=== PATIENT | male | born 1970 | race Caucasian/White ===

== ENCOUNTER 2017-03-03 01:15 | Inpatient (IN) | payer OTHER ==
[~2017-03-03] VITALS: Ht 182.9 cm; Wt 81.0 kg
[2017-03-03] VITALS (12 sets, daily range): BP systolic 106–125; BP diastolic 58–72; PULSE 72–83; RESP 16–18; Ht 182.9 cm; Wt 81.0 kg
[~2017-03-03 01:15] MED LIST: AMOX1TAB10 PO; BACTDS PO; CETI10CA PO; POLY10DR19 BOTH EYES; POLY10DR19 RIGHT EYE
[2017-03-03] MEDS ORDERED: GLIM1TAB2 PO (02:55)
[2017-03-03] MEDS ORDERED: LISI10TA2 PO (02:55)
[2017-03-03] MEDS ORDERED: ATOR20TA38 PO (02:55)
[2017-03-03] MEDS ORDERED: METF1000 PO (02:55)
[2017-03-03] MEDS ORDERED: ASPI-664 PO (02:55)
[2017-03-03] MEDS ORDERED: morphine 4 MG/ML VIAL IV STA (06:55)
[2017-03-03] MEDS: VANCOMYCIN 1 GM (PMX) 250 ML IVPB SCH ×2 (07:00→09:01)
[2017-03-03] MEDS ORDERED: morphine 4 MG/ML VIAL IV PRN (08:00)
[2017-03-03] MEDS ORDERED: NACL 0.9% 3 ML SYG IV SCH (08:00)
[2017-03-03] MEDS: SOD CHLORIDE 0.9% 1,000 ML IV SCH ×2 (09:01→21:22)
[2017-03-03 09:04] LABS: BASOPHILS % 0.2 % (0.0-2.0); EOSINOPHILS # 0.1 10^3/ul (0.0-0.5); EOSINOPHILS % 0.8 % (0.0-7.0); HEMATOCRIT 33.2 % (42.0-52.0); HEMOGLOBIN 11.2 g/dl (14.0-18.0); LYMPHOCYTES # 1.1 10^3/ul (0.8-2.9); LYMPHOCYTES % 12.3 % (15.0-51.0); MEAN CORPUSCULAR HEMOGLOBIN 29.4 pg (29.0-33.0); MEAN CORPUSCULAR HGB CONC 33.7 g/dl (32.0-37.0); MEAN CORPUSCULAR VOLUME 87.1 fl (82.0-101.0); MEAN PLATELET VOLUME 8.7 fl (7.4-10.4); MONOCYTE # 0.6 10^3/ul (0.3-0.9); MONOCYTES % 6.6 % (0.0-11.0); NEUTROPHILS % 79.6 % (39.0-77.0); PLATELET COUNT 248 10^3/UL (140-415); RED BLOOD COUNT 3.81 10^6/ul (4.70-6.10); RED CELL DISTRIBUTION WIDTH 12.9 % (11.5-14.5); WHITE BLOOD COUNT 8.8 10^3/ul (4.8-10.8)
[2017-03-03 09:17] LABS: INR 1.12; PROTIME 14.4 Sec (12.2-14.2); PT RATIO 1.1
[2017-03-03 09:18] LABS: PARTIAL THROMBOPLASTIN TIME 35.1 Sec (25.0-35.0)
[2017-03-03 09:19] LABS: ALBUMIN 3.6 g/dl (3.3-4.9); ALBUMIN/GLOBULIN RATIO 0.94; BILIRUBIN,INDIRECT 0.5 mg/dl (0-1.1); BILIRUBIN,TOTAL 0.5 mg/dl (0.2-1.3); CALCIUM 8.8 mg/dl (8.4-10.2); CHOL/HDL RATIO 5.5 RATIO; CREATININE 0.67 mg/dl (0.61-1.24); TOTAL PROTEIN 7.4 g/dl (6.1-8.1)
[2017-03-03 09:53] LABS: THYROID STIMULATING HORMONE 0.836 MIU/L (0.465-4.680)
--- NOTE | 2017-03-03 11:49 | HP ---
Date/Time of Note Date/Time of Note DATE: 03/03/17 TIME: 11:41 Assessment/Plan VTE Prophylaxis VTE Prophylaxis Intervention: SCD's Lines/Catheters IV Catheter Type (from Nrs): Saline Lock Urinary Cath still in place: No Assessment/Plan Chief Complaint/Hosp Course This is a 46-year-old male being admitted to the telemetry floor for: #1 right fourth toe gangrene: Patient has extensive gangrene of the right fourth toe. At the current time he is not expecting any pain. Will consult podiatry for further treatment strategy evaluation. He may also need consultation with vascular surgery however we will defer this to podiatry. Will provide as needed morphine pain control as indicated. We will keep the patient n.p.o. at this time secondary to patient undergoes procedure. #2 diabetes mellitus: We will check hemoglobin A1c, patient states he is on no medications. Will order insulin sliding scale #3 hypertension we will hold metformin., Patient's transfer paperwork did show elevated blood sugars in approximately 200-300s. I feel like patient likely will need to be started on insulin as a do feel his emergency will roller turner to be slightly above 10. #3 hyperlipidemia: We will check a lipid panel, continue statin #4 Hypertension: We will continue patient's home medications. #5 DVT GI prophylaxis: SCDs, no GI prophylaxis indicated Further treatment strategy will be implemented as per clinical Problems: DONOVAN/BINH Admit Date/Time Admit Date/Time Mar 03, 2017 at 01:49 Hx of Present Illness Chief complaint: Right fourth toe turning black This is a 46-year-old male who was transferred from [facility] secondary to blackening of his right fourth toe. Patient was subsequently transferred for insurance purposes to our hospital for treatment. 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 It was approximately 3-4 days ago that he started noticing his right fourth toe beginning to become black. He denies any pain of the toe or any bleeding. He started also noticing in the last few days swelling of his of his anterior foot as well as the neighboring toes as well. He states his pain is tolerable at this time without any pain medications. He can still feel normally and move his toes relatively same though he does have some restricted motion secondary to swelling. Allergies: NKDA Medications: See MAR ROS Const: As per HPI Eyes : No pain discharge or redness or change in visual acuity ENT: No pain, sore throat, congestion, congestion, dysphagia or discharge Respiratory: No shortness of breath, cough, sputum, wheezing, or pleuritic pain Cardiovascular: No chest pain, palpitation, PND, or edema GI : no change in appetite, abdominal pain, nausea, vomiting, diarrhea, constipation, or change in the color his stool Genitourinary: No dysuria, hematuria, flank pain , discharge or CVA tenderness Musculoskeletal: As per HPI Skin: As per HPI Neuro: No headache, dizziness, syncope, seizure, focal weakness Endocrine: No polyuria, polydipsia, temperature intolerance Psych: No hallucination, depression, anxiety or suicidal ideation PMH/Family/Social Past Medical History diabetes mellitus, hypertension, hyperlipidemia Past Surgical History Past Surgical Hx: appendectomy Family History Significant Family History: diabetes Social History Alcohol Use: occasionally Smoking Status: Current some day smoker Exam/Review of Systems Vital Signs Vitals Vital Signs Date Time Temp Pulse Resp B/P Pulse Ox O2 Delivery O2 Flow Rate FiO2 03/03/17 08:05 83 03/03/17 07:55 98.6 18 118/68 97 Exam Exam General: Patient is lying in bed in no acute distress HEENT: Atraumatic, normocephalic. The pupils are equal, round and reactive. Extraocular motor are intact Neck: Supple with full range of motion. No rigidity or meningismus Chest: Nontender Lungs: Clear to auscultation bilaterally no crackles rales or wheezing Heart: Normal S1-S2, Regular rhythm and rate. No murmur, S3, or S4 Abdomen: Soft , nontender, nondistended , bowel sounds are present. No guarding no rebound tenderness , No masses or organomegaly. No costovertebral temporal angle mass Extremities: Right lower foot toes swelling up to the level of the midfoot, call , sensation intact of the right lower foot digits aside from the right fourth toe Skin: Diffuse gangrene of the right fourth toe. Nonpainful to touch. Redness and swelling of the right foot as well. Additional Comments Pertinent laboratory findings from the transfer facility are as follows please see the report for full details. X-ray of the foot: Showed right soft tissue gangrene of the fourth toe Labs Result Diagram: 03/03/17 0846 03/03/17 0846 Medications Medications Current Medications Sodium Chloride (NS) 1,000 ml @ 80 mls/hr [id number] IV Last administered on 03/03 09:01; Admin Dose 80 MLS/HR; Start 03/03/17 at 08:00 Acetaminophen (Tylenol Tab) 650 mg Q6H PRN PO PAIN LEVEL 1-3 OR FEVER; Start 03/03/17 at 08:00 Morphine Sulfate (morphine) 4 mg Q4H PRN IV PAIN LEVEL 7-10; Start 03/03/17 at 08:00 SANDRA CONLEY Mar 03, 2017 11:49
[2017-03-03] MEDS ORDERED: POLYMYXIN/TRIMETHOPRIM 10 ML OPH BOTH EYES SCH (13:00)
[2017-03-03] MEDS ORDERED: GLUCOSE GEL 15 GRAM TUBE BUCCAL PRN (14:00)
[2017-03-03] MEDS ORDERED: GLUCAGON 1 MG INJ IM PRN (14:00)
[2017-03-03] MEDS ORDERED: DEXTROSE 50% 50 ML SYRINGE IV PRN ×2 (14:00)
[2017-03-03] MEDS ORDERED: GLUCOSE GEL 15 GRAM TUBE PO PRN ×2 (14:00)
[2017-03-03] MEDS ORDERED: VANCOMYCIN IV PER PHARMACY XX SCH (15:00)
[2017-03-03] MEDS: VANCOMYCIN 1.25 GM in SOD CHLORIDE 0.9% 250 ML IVPB SCH ×2 (15:59→23:49)
[2017-03-03] MEDS: LEVOFLOXACIN 500MG/D5W (PMX) 100 ML IVPB SCH (16:04)
--- NOTE | 2017-03-03 16:32 | QN ---
Documentation Comment The patient was seen. Labs reviewed. Started on antibiotics and sliding scale insulin. ID consult called. Case discussed with Dr. Lind. MODESTA URIAS NP Mar 03, 2017 16:32
[2017-03-03] MEDS: INSULIN ASPART [NOVOLOG] 3 ML PEN SC SCH ×3 (17:08→21:00)
--- NOTE | 2017-03-03 17:49 | CONS ---
DATE OF ADMISSION: 03/03/2017 DATE OF CONSULTATION: 03/03/2017 TYPE OF CONSULTATION: Infectious Disease. REASON FOR CONSULTATION: Antibiotic management. HISTORY OF PRESENT ILLNESS: Sarwat Parker is a 46-year-old male transferred from [facility] with blackening of his right 4th toe. His past problems include: 1. Adult-onset diabetes mellitus. 2. Hyperlipidemia. 3. Hypertension. 4. Gangrenous changes to his right 4th toe. 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 Three or r days ago, he started noticing that the right 4th toe with beginning to blacken. He denies any pain in the toe or bleeding. He noted swelling of his anterior foot as well as swelling of the neighboring toes. He can still move his toes and has tolerable hermelinda n, but is concerned. On admission, his white count is 8.8, hemoglobin and hematocrit 11.2 and 33.2, platelet count 248,00 0. BUN and creatinine 14/0.67. His glucose is 258, x-ray of the foot shows right soft tissue gangr mariah of the 4th toe. PAST MEDICAL HISTORY: Operations as outlined. Status post appendectomy. FAMILY HISTORY: Positive for diabetes. SOCIAL HISTORY: He drinks occasionally, he is an every day smoker. He does not abuse drugs. ALLERGIES: NONE TO PENICILLIN, SULFA OR FOODS. MEDICATIONS: Per chart. REVIEW OF SYSTEMS: As per HPI. PHYSICAL EXAMINATION: GENERAL: The patient is a well-developed, well-nourished male who is alert, responsive, in no acute distress. VITAL SIGNS: Stable. He is afebrile. SKIN: Without generalized rash. HEENT: Within normal limits. NECK: Supple. LYMPH NODES: None palpable. CHEST: Decreased breath sounds at the bases. HEART: Without murmur or gallop. ABDOMEN: Soft, nontender, without organosplenomegaly or masses. EXTREMITIES: Without cyanosis, clubbing, or edema. The right lower foot is swollen to the mid foot and gangrenous changes of the right 4th toe. IMPRESSION AND PLAN: The patient was started on vancomycin and Levaquin. He should be seen by savannah dean. I will dictate my findings to the hospitalist. Dictated By: NOLAN DUPREE MD, JD/PRINCESS Conf#: [id number] [facility]#: [id number]
--- NOTE | 2017-03-03 18:04 | HP ---
DATE OF ADMISSION: 03/03/2017 TYPE OF CONSULTATION: VASCULAR SURGERY CONSULTATION Dear Doctors: Mr. Parker is a 46-year-old gentleman who presented to [facility] secondary to rec ent findings of right 4th toe gangrene. It seems the patient had sustained a traumatic experience a bout 4 days ago where he had dropped a cement block on his steel toe and sustained a fourth toe blun t injury, and soon after that the patient had developed erythema, swelling, pain and gangrene of the toe. The patient at the moment denies shortness of breath, chest pain, nausea, vomiting, fever or chills. Vascular surgery consultation was obtained for further evaluation. REVIEW OF SYSTEMS: A 14-point review performed and negative except what is mentioned in the HPI. PAST MEDICAL HISTORY: Entails hypertension, diabetes, hyperlipidemia. PAST SURGICAL HISTORY: Appendectomy. FAMILY HISTORY: Diabetes and hypertension. SOCIAL HISTORY: Intermittent smoker, occasional alcohol drinker. Denies substance abuse. PHYSICAL EXAMINATION: GENERAL: Alert and oriented x3, no apparent distress. HEENT: Normocephalic, atraumatic. PERRLA, EOMI. Mucosa moist. NECK: Supple. No carotid bruit. PULMONARY: Clear to auscultation bilaterally. No crackles. CARDIOVASCULAR: S1, S2 present. No murmurs. ABDOMEN: Soft, nontender, nondistended. Bowel sounds positive. EXTREMITIES: Right lower extremity palpable femoral pulse, palpable pedal pulse. Motor, sensory intact. Cap ref ill 2 to 3 seconds, 4th toe gangrene with surrounding erythema and edema 1+, tender upon palpation o f the metatarsal segment. Left lower extremity palpable femoral pulse, palpable pedal pulse. Motor, sensory intact. Cap refi ll 2 to 3 seconds. ASSESSMENT AND PLAN: 1. Bilateral lower extremity atherosclerosis with right lower extremity gangrene: It seems the pat ient has developed a fourth toe gangrene secondary to his blunt trauma and developing diabetic foot infection. At the moment, since the patient does have pedal pulse, no further vascular workup will be required as the patient should have adequate perfusion for intervention of debridement and amputa tion of the fourth toe. The patient is cleared from a vascular surgery standpoint. We will plan to follow the patient's local wound care and progress. 2. Optimize vascular status (BP meds, diet, nutrition, exercise, sugar control, antiplatelets). 3. Discussed findings, plan and management with the patient and he understands. Thank you for allowing us to partake in the care of your patient. Please call with any questions. Dictated By: PIERRE ROSE/PRINCESS Conf#: [id number] DID#: [id number]
[2017-03-03] MEDS: ACETAMINOPHEN 325 MG TAB PO PRN (21:22)
[2017-03-03] MEDS: ATORVASTATIN 20 MG TAB PO SCH (21:22)
--- NOTE | 2017-03-03 21:57 | CONS ---
Date/Time of Note Date/Time of Note DATE: 03/03/17 TIME: 21:50 Assessment/Plan Assessment/Plan Problems: (1) Struck by falling object (2) Gangrene of toe of right foot (3) Cellulitis of right foot (4) Diabetes, polyneuropathy Additional Assessment/Plan Patient will require surgical management. Thank you very much Dr. Zamudio for vascular clearance. Patient will be scheduled for surgery tomorrow in the afternoon. I have ordered patient to remain n.p.o. after breakfast tomorrow morning. Patient will require primary amputation of the right fourth gangrenous toe with incision and drainage of the right foot and irrigation. Prognosis is guarded. He remains at risk for limb loss. Thank you again for involving me in the care of this patient. If you have any questions regarding this case, please feel free to contact me at pager: or reach me at mobile: [phone]. Consultation Date/Type/Reason Admit Date/Time Mar 03, 2017 at 01:49 Date of Consultation: Mar 03, 2017 Type of Consultation: Foot and ankle surgery Reason for Consultation Evaluation of infection of the right foot with gangrene of the right fourth toe. Hx of Present Illness Thank you very much for involving me in the care of this patient. As you very well-known, this is a 46-year-old male who was admitted to the hospital for right fourth toe gangrene and infection secondary to concrete block dropping on top of the right foot at work. The patient's past medical history significant for diabetes mellitus, hyperlipidemia, hypertension. I was consult to evaluate and treat right foot infection and right fourth gangrenous toe. Patient reports he was wearing steel toe boots were a large heavy concrete block fell on top of the right foot and damaged is still toe and caused infection of the right foot. He says he went to [facility] in the beginning but was transferred over to [facility] secondary to insurance reasons. Constitutional: no complaints Eyes: no complaints ENT: no complaints Respiratory: no complaints Cardiovascular: no complaints Gastrointestinal: no complaints Genitourinary: no complaints Past Surgical History Past Surgical Hx: appendectomy Social History Alcohol Use: occasionally Smoking Status: Current some day smoker Exam/Review of Systems Vital Signs Vitals Vital Signs Date Time Temp Pulse Resp B/P Pulse Ox O2 Delivery O2 Flow Rate FiO2 03/03/17 20:07 72 03/03/17 19:47 99.4 16 121/69 98 Exam General appearance: Patient is well developed; appears to be in no acute distress, laying supine in bed. No dressing present Vascular exam: Pedal pulses: weakly palpable bilateral feet; CFT: Delayed; TG: Decreased right lower extremity and normal left lower extremity; Edema: Present right foot Neurological exam: Protective sensation is diminished to sharp, dull, vibratory and temperature stimuli bilaterally. Deep tendon reflexes are normal bilaterally. Negative Tinel sign Dermatological exam: Gangrenous right fourth toe with erythema of the right foot mostly on the dorsal aspect. Small blister formation noted. Is no active open wound and no bleeding or pus noted. Mild malodor present Musculoskeletal exam: Right foot is tender to examination. Gangrenous right fourth toe noted. Rectus foot type noted. Muscle power is 5/5 bilateral lower extremity Labs reviewed. There is no imaging studies to review at this time. Results Result Diagram: 03/03/17 0846 03/03/17 0846 Results 24 hrs Laboratory Tests Test 03/03/17 08:46 03/03/17 17:05 03/03/17 21:20 White Blood Count 8.8 Red Blood Count 3.81 L Hemoglobin 11.2 L Hematocrit 33.2 L Mean Corpuscular Volume 87.1 Mean Corpuscular Hemoglobin 29.4 Mean Corpuscular Hemoglobin Concent 33.7 Red Cell Distribution Width 12.9 Platelet Count 248 Mean Platelet Volume 8.7 Neutrophils % 79.6 H Lymphocytes % 12.3 L Monocytes % 6.6 Eosinophils % 0.8 Basophils % 0.2 Nucleated Red Blood Cells % 0.0 Neutrophils # 7.0 Lymphocytes # 1.1 Monocytes # 0.6 Eosinophils # 0.1 Basophils # 0.0 Nucleated Red Blood Cells # 0.0 Prothrombin Time 14.4 H Prothrombin Time Ratio 1.1 INR International Normalized Ratio 1.12 Activated Partial Thromboplast Time 35.1 H Sodium Level 142 Potassium Level 4.0 Chloride Level 104 Carbon Dioxide Level 23 Anion Gap 19 H Blood Urea Nitrogen 14 Creatinine 0.67 Glucose Level 258 H Hemoglobin A1c 11.7 H Calcium Level 8.8 Total Bilirubin 0.5 Direct Bilirubin 0.00 Indirect Bilirubin 0.5 Aspartate Amino Transf (AST/SGOT) 16 Alanine Aminotransferase (ALT/SGPT) 23 Alkaline Phosphatase 91 Total Protein 7.4 Albumin 3.6 Globulin 3.80 H Albumin/Globulin Ratio 0.94 Triglycerides Level 114 Cholesterol Level 122 LDL Cholesterol, Calculated 77 HDL Cholesterol 22 L Cholesterol/HDL Ratio 5.5 Thyroid Stimulating Hormone (TSH) 0.836 Bedside Glucose 238 H 165 Medications Medications Current Medications Sodium Chloride (NS) 1,000 ml @ 80 mls/hr [id number] IV Last administered on 03/03 21:22; Admin Dose 80 MLS/HR; Start 03/03/17 at 08:00 Acetaminophen (Tylenol Tab) 650 mg Q6H PRN PO PAIN LEVEL 1-3 OR FEVER Last administered on 03/03/17 21:22; Admin Dose 650 MG; Start 03/03/17 at 08:00 Morphine Sulfate (morphine) 4 mg Q4H PRN IV PAIN LEVEL 7-10; Start 03/03/17 at 08:00 Atorvastatin Calcium (Lipitor) 20 mg QHS PO Last administered on 03/03/17 21: 22; Admin Dose 20 MG; Start 03/03/17 at 21:00 Lisinopril (Zestril) 10 mg DAILY PO ; Start 03/04/17 at 09:00 Loratadine (Claritin) 10 mg DAILY PO ; Start 03/04/17 at 09:00 Diagnostic Test (Pha) (Accu-Chek) 1 ea 02 XX ; Start 03/04/17 at 02:00 Insulin Glargine (Lantus) 20 unit DAILY@08 SC ; Start 03/04/17 at 08:00 Diagnostic Test (Pha) (Accu-Chek) 1 ea 02 XX ; Start 03/04/17 at 02:00 Miscellaneous Information 1 ea NOTE XX ; Start 03/03/17 at 14:00 Glucose (Glutose) 15 gm Q15M PRN PO DECREASED GLUCOSE; Start 03/03/17 at 14:00 Glucose (Glutose) 22.5 gm Q15M PRN PO DECREASED GLUCOSE; Start 03/03/17 at 14: 00 Dextrose (D50w Syringe) 25 ml Q15M PRN IV DECREASED GLUCOSE; Start 03/03/17 at 14:00 Dextrose (D50w Syringe) 50 ml Q15M PRN IV DECREASED GLUCOSE; Start 03/03/17 at 14:00 Glucagon (Glucagen) 1 mg Q15M PRN IM DECREASED GLUCOSE; Start 03/03/17 at 14:00 Glucose 15 gm 15 gm Q15M PRN BUCCAL DECREASED GLUCOSE; Start 03/03/17 at 14:00 Levofloxacin/ Dextrose 100 ml @ 100 mls/hr Q24H IVPB Last administered on 03/03 16:04; Admin Dose 100 MLS/HR; Start 03/03/17 at 15:00 Vancomycin HCl/ Sodium Chloride (Vancocin/NS) 250 ml @ 83.333 mls/ hr Q8H IVPB Last administered on 03/03/17 15:59; Admin Dose 83.333 MLS/HR; Start at 15:30 LOUANN JORDAN DPM Mar 03, 2017 21:57
[2017-03-04] VITALS (10 sets, daily range): BP systolic 112–126; BP diastolic 57–70; PULSE 58–86; RESP 16–18
[2017-03-04] MEDS: ACCU-CHEK XX SCH (01:46)
[2017-03-04] MEDS ORDERED: ACCU-CHEK XX SCH (02:00)
[2017-03-04] MEDS: ACETAMINOPHEN 325 MG TAB PO PRN (06:47)
[2017-03-04 07:39] LABS: BASOPHILS % 0.2 % (0.0-2.0); EOSINOPHILS # 0.1 10^3/ul (0.0-0.5); EOSINOPHILS % 1.1 % (0.0-7.0); HEMATOCRIT 33.9 % (42.0-52.0); LYMPHOCYTES # 1.1 10^3/ul (0.8-2.9); LYMPHOCYTES % 11.3 % (15.0-51.0); MEAN CORPUSCULAR HEMOGLOBIN 28.9 pg (29.0-33.0); MEAN CORPUSCULAR HGB CONC 32.4 g/dl (32.0-37.0); MONOCYTE # 0.5 10^3/ul (0.3-0.9); MONOCYTES % 5.6 % (0.0-11.0); NEUTROPHIL # 7.7 10^3/ul (1.6-7.5); NEUTROPHILS % 81.4 % (39.0-77.0); PLATELET COUNT 282 10^3/UL (140-415); RED BLOOD COUNT 3.81 10^6/ul (4.70-6.10); WHITE BLOOD COUNT 9.4 10^3/ul (4.8-10.8)
[2017-03-04 07:59] LABS: ALBUMIN 3.5 g/dl (3.3-4.9); ALBUMIN/GLOBULIN RATIO 0.92; BILIRUBIN,INDIRECT 0.4 mg/dl (0-1.1); BILIRUBIN,TOTAL 0.4 mg/dl (0.2-1.3); CALCIUM 8.9 mg/dl (8.4-10.2); CREATININE 0.6 mg/dl (0.61-1.24); MAGNESIUM 1.7 mg/dl (1.7-2.5); PHOSPHORUS 3.3 mg/dl (2.5-4.9); POTASSIUM 4.1 mmol/L (3.5-5.1); TOTAL PROTEIN 7.3 g/dl (6.1-8.1)
[2017-03-04] MEDS: INSULIN ASPART [NOVOLOG] 3 ML PEN SC SCH ×6 (07:59→21:10)
[2017-03-04] MEDS ORDERED: INSULIN GLARGINE [LANtus] 3 ML PEN SC SCH (08:00)
[2017-03-04] MEDS: LORATADINE 10 MG TAB PO SCH (08:19)
[2017-03-04] MEDS: VANCOMYCIN 1.25 GM in SOD CHLORIDE 0.9% 250 ML IVPB SCH ×3 (08:19→23:30)
[2017-03-04] MEDS: LISINOPRIL 10 MG TAB PO SCH (08:20)
[2017-03-04] MEDS: SOD CHLORIDE 0.9% 1,000 ML IV SCH ×2 (09:00→21:30)
--- NOTE | 2017-03-04 15:45 | PN ---
DATE: 03/04/2017 SUBJECTIVE: Patient is alert, looks comfortable, no fevers. LABORATORY DATA: WBC 9.4, neutrophils 81.4, BUN 14, creatinine 0.60. ANTIMICROBIALS: 1. Vancomycin. 2. Levaquin. PHYSICAL EXAMINATION: GENERAL: Well-developed, middle-aged man who is alert, in no distress. HEENT: Head atraumatic, normocephalic. Sclerae anicteric. Buccal mucosa dry. NECK: Supple. CHEST: Rise symmetrical. Breath sounds clear. HEART: S1, S2. ABDOMEN: Soft, bowel sounds present. EXTREMITIES: With right 4th toe block with significant cellulitis, erythema and formation of absces s on the foot with foul odor. ASSESSMENT: 1. Diabetic foot ulceration with fourth toe gangrene and cellulitis of the foot, possible abscess. 2. Diabetes. 3. Hypertension. PLAN: The patient remains stable. We are going to continue him on current antibiotics. He is bein g followed by podiatry and vascular surgery. He will likely require toe amputation and incision and drainage of the right foot. We will order MRI of the foot to evaluate the extent of his infection. Dictated By: MIGUELINA RUDOLPH WATER HYDRANT INSTALLER for NOLAN GAMBOA/PRINCESS Conf#: [id number] DID#: [id number]
[2017-03-04] MEDS: LEVOFLOXACIN 500MG/D5W (PMX) 100 ML IVPB SCH (15:55)
--- NOTE | 2017-03-04 16:18 | PN ---
Date/Time of Note Date/Time of Note DATE: 03/04/17 TIME: 16:13 Assessment/Plan VTE Prophylaxis VTE Prophylaxis Intervention: SCD's Lines/Catheters IV [facility]ter [facility]from [facility]): Saline Lock Urinary Cath still in place: No Assessment/Plan Chief Complaint/Hosp Course Assessment and plan 1. Right foot fourth toe gangrene. Podiatry is following. ID consult is also following. Continue antibiotics. 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 2. Diabetes. Uncontrolled. Continue insulin regimen. Will get early childhood educator aide. 3. dyslipidemia. Continue on statin 4. htn. Continue antihypertensives and adjust as needed. Disposition plan: Continue antibiotics. Await for podiatry follow-up for possible intervention. Discussed with Dr. Emerson Problems: Subjective 24 Hr Interval Summary Free Text/Dictation Comfortable at present. No specific complaints. Exam/Review of Systems Vital Signs Vitals Vital Signs Date Time Temp Pulse Resp B/P Pulse Ox O2 Delivery O2 Flow Rate FiO2 03/04/17 15:55 99.7 73 18 119/67 97 Intake and Output 03/03/17 03/03/17 03/04/17 15:00 23:00 07:00 Intake Total 250 ml 1566.66 ml Output Total 500 ml Balance 250 ml 1066.66 ml Exam Constitutional: alert, oriented Psych: nl mood/affect Head: normocephalic Eyes: nl conjunctiva ENMT: nl external ears & nose Respiratory: clear to auscultation, normal air movement Cardiovascular: regular rate and rhythm Gastrointestinal: non-tender, soft Musculoskeletal: other (right fourth toe gangrene ) Results Result Diagram: 03/04/17 0652 03/04/17 0652 Results 24 hrs Laboratory Tests Test 03/03/17 17:05 03/03/17 21:20 03/04/17 06:52 03/04/17 07:57 Bedside Glucose 238 H 165 191 White Blood Count 9.4 Red Blood Count 3.81 L Hemoglobin 11.0 L Hematocrit 33.9 L Mean Corpuscular Volume 89.0 Mean Corpuscular Hemoglobin 28.9 L Mean Corpuscular Hemoglobin Concent 32.4 Red Cell Distribution Width 13.0 Platelet Count 282 Mean Platelet Volume 9.0 Neutrophils % 81.4 H Lymphocytes % 11.3 L Monocytes % 5.6 Eosinophils % 1.1 Basophils % 0.2 Nucleated Red Blood Cells % 0.0 Neutrophils # 7.7 H Lymphocytes # 1.1 Monocytes # 0.5 Eosinophils # 0.1 Basophils # 0.0 Nucleated Red Blood Cells # 0.0 Sodium Level 140 Potassium Level 4.1 Chloride Level 103 Carbon Dioxide Level 23 Anion Gap 18 H Blood Urea Nitrogen 14 Creatinine 0.60 L Glucose Level 201 Calcium Level 8.9 Phosphorus Level 3.3 Magnesium Level 1.7 Total Bilirubin 0.4 Direct Bilirubin 0.00 Indirect Bilirubin 0.4 Aspartate Amino Transf (AST/SGOT) 16 Alanine Aminotransferase (ALT/SGPT) 19 Alkaline Phosphatase 94 Total Protein 7.3 Albumin 3.5 Globulin 3.80 H Albumin/Globulin Ratio 0.92 Test 03/04/17 12:11 03/04/17 14:52 Bedside Glucose 190 Vancomycin Level Trough 10.3 Medications Medications Current Medications Sodium Chloride (NS) 1,000 ml @ 80 mls/hr [id number] IV Last administered on 03/03 21:22; Admin Dose 80 MLS/HR; Start 03/03/17 at 08:00 Acetaminophen (Tylenol Tab) 650 mg Q6H PRN PO PAIN LEVEL 1-3 OR FEVER Last administered on 03/04/17 06:47; Admin Dose 650 MG; Start 03/03/17 at 08:00 Morphine Sulfate (morphine) 4 mg Q4H PRN IV PAIN LEVEL 7-10; Start 03/03/17 at 08:00 Atorvastatin Calcium (Lipitor) 20 mg QHS PO Last administered on 03/03/17 21: 22; Admin Dose 20 MG; Start 03/03/17 at 21:00 Lisinopril (Zestril) 10 mg DAILY PO Last administered on 03/04/17 08:20; Admin Dose 10 MG; Start 03/04/17 at 09:00 Loratadine (Claritin) 10 mg DAILY PO Last administered on 03/04/17 08:19; Admin Dose 10 MG; Start 03/04/17 at 09:00 Diagnostic Test (Pha) (Accu-Chek) 1 ea 02 XX ; Start 03/04/17 at 02:00 Miscellaneous Information 1 ea NOTE XX ; Start 03/03/17 at 14:00 Glucose (Glutose) 15 gm Q15M PRN PO DECREASED GLUCOSE; Start 03/03/17 at 14:00 Glucose (Glutose) 22.5 gm Q15M PRN PO DECREASED GLUCOSE; Start 03/03/17 at 14: 00 Dextrose (D50w Syringe) 25 ml Q15M PRN IV DECREASED GLUCOSE; Start 03/03/17 at 14:00 Dextrose (D50w Syringe) 50 ml Q15M PRN IV DECREASED GLUCOSE; Start 03/03/17 at 14:00 Glucagon (Glucagen) 1 mg Q15M PRN IM DECREASED GLUCOSE; Start 03/03/17 at 14:00 Glucose 15 gm 15 gm Q15M PRN BUCCAL DECREASED GLUCOSE; Start 03/03/17 at 14:00 Levofloxacin/ Dextrose 100 ml @ 100 mls/hr Q24H IVPB Last administered on 03/04 15:55; Admin Dose 100 MLS/HR; Start 03/03/17 at 15:00 Vancomycin HCl/ Sodium Chloride (Vancocin/NS) 250 ml @ 83.333 mls/ hr Q8H IVPB Last administered on 03/04/17 15:56; Admin Dose 83.333 MLS/HR; Start at 15:30 Insulin Glargine (Lantus) 24 unit DAILY@08 SC ; Start 03/05/17 at 08:00 DARREN OHUSE Mar 04, 2017 16:17
[2017-03-04] MEDS ORDERED: BUPIVACAINE 0.5% (SDV) 30 ML INJ ONE (16:30)
[2017-03-04] MEDS ORDERED: LIDOCAINE 2% (MDV) 20 ML INJ ONE (16:30)
--- NOTE | 2017-03-04 16:34 | HPN ---
Date/Time of Note Date/Time of Note DATE: 03/04/17 TIME: 16:34 Interval H&P Admission Note Pt. seen H&P reviewed: No system changes LOUANN JORDAN DPM Mar 04, 2017 16:34
[2017-03-04] MEDS ORDERED: MIDAZOLAM 1 MG/ML 2 ML INJ ONE ×2 (16:45)
[2017-03-04] MEDS ORDERED: FENTAnyl 50 MCG/ML VIAL ONE (16:45)
[2017-03-04] MEDS: ATORVASTATIN 20 MG TAB PO SCH (21:00)
[2017-03-05] VITALS (10 sets, daily range): BP systolic 113–133; BP diastolic 60–69; PULSE 63–74; RESP 18–20
[2017-03-05] MEDS: ACCU-CHEK XX SCH (02:44)
--- NOTE | 2017-03-05 04:10 | OPR ---
DATE OF OPERATION: 03/04/2017 PREOPERATIVE DIAGNOSES: 1. Right fourth toe gangrene. 2. Right foot abscess with cellulitis. 3. Diabetes mellitus. 4. Peripheral neuropathy. 5. Status post object falling on top of the right foot. POSTOPERATIVE DIAGNOSES: 1. Right fourth toe gangrene. 2. Right foot abscess with cellulitis. 3. Diabetes mellitus. 4. Peripheral neuropathy. 5. Status post object falling on top of the right foot. PROCEDURE PERFORMED: 1. Right 4th gangrenous toe amputation. 2. Incision and drainage of right foot abscess with cellulitis. SURGEON: Emanuel Martínez DPM BELLOWS TESTER: None. ANESTHESIA: Spinal. ESTIMATED BLOOD LOSS: Less than 10 mL. HEMOSTASIS: None. INDICATIONS: This is a pleasant 46-year-old male patient who sustained injury to the right foot inv olving a large heavy concrete block falling on top of his right foot at work. He says that he was w earing steel-toed boots and the boot got damaged, along with his right 4th toe. He states that his occurred about 2 weeks ago. He was seen in another hospital and was transferred to [facility] secondary to insurance reasons. He had developed cellulitis and abscess of the right f oot, and decision was made, along with recommendation for amputation of the right fourth toe full ga ngrene, and incision and drainage of the right foot abscess with cellulitis. Complications of this type of surgery was discussed with patient in great detail including, but not limited to, postoperat best infection, worsening of condition, postoperative pain, chronic pain and disability, need for add itional surgical procedures, failure of surgery to correct the problem, deep venous thrombosis, limb loss and loss of life. Patient understands risks and complications, agrees to procedure. Informed consent was obtained, signed, placed in the chart. No guarantee or warranty was given or implied a s to the outcome of the procedure in verbal and written form. PROCEDURE IN DETAIL: The patient was seen in the preoperative area, proposed surgery was discussed with the patient in great detail. Opportunity was given for the patient to ask questions and all qu estions were answered. The patient acknowledged understanding of the discussion. Informed consent was obtained, signed and placed in the chart. The patient was then taken to the operating room, was placed on the operating table in supine position. Patient was then placed in a seated position and anesthesiologist did a spinal anesthesia on the patient. The patient was then laid flat back on th e table. All bony prominences were padded properly. A timeout was called by the circulating nurse, agreed upon by every member in the OR. The right lower extremity was then scrubbed, prepped and dr aped in usual aseptic manner. Attention was directed to the right 4th toe where the toe was noticed to have full gangrene all the way to the sulcus. A #15 blade was used to amputate the toe and disa rticulate at the metatarsophalangeal joint, and passed to the back table. Extensive amount of purul ent drainage was noted as I was doing the amputation. There was necrotic tissue and malodor present . An incision was made over the dorsal aspect of the fourth metatarsal aspect using a #15 blade. A gain, extensive amount of purulent drainage was noted with necrotic tissue. Sharp debridement of ne crotic tissue was done to level of bone. The area was then flushed with copious amounts of sterile normal saline and bacitracin. The wound was then packed with iodoform packing. Sterile dressing wa s applied to the right foot. This concluded the case. The patient tolerated the procedure and anes thesia well, and was transferred to recovery room with vital signs stable and vascular status intact to the right foot. Patient will be sent back to the floor after postoperative monitoring. Postope rative orders were written. The computer system was not functioning, therefore, the orders were geovanny marinelli, along with the brief postop note. Patient will be followed in-house. Dictated By: EMANUEL JOHNSON/PRINCESS Conf#: [id number] DID#: [id number] CC: SANDRA CONLEY MD;*EndCC*
--- NOTE | 2017-03-05 06:52 | RADRPT ---
PROCEDURE: XR right foot. CLINICAL INDICATION: Postoperative evaluation TECHNIQUE: AP, lateral and oblique views of the right foot were obtained. COMPARISON: None. FINDINGS: Resection of the phalanges involving the fourth digit is noted consistent with the provided history of surgery. Mineralization is overall within normal limits. No fracture or osseous lesion is identi fied. There is no evidence for dislocation. Joint spaces are preserved. Surgical packing is belie alan to be present in the postoperative bed of the fourth toe. Otherwise the soft tissues are unremar kable . There is no evidence for radiopaque foreign body. RPTAT:HJJR IMPRESSION: 1. Postoperative phalangeal resection involving the fourth toe of the right foot. 2. Likely surgical packing within the postoperative bed. 3. No other abnormalities of the right foot are demonstrated. Physician Jaqui Date Time Electronically viewed and signed by Physician Jaqui on 03/04/2017 19:53 /
[2017-03-05] MEDS: VANCOMYCIN 1.25 GM in SOD CHLORIDE 0.9% 250 ML IVPB SCH ×2 (08:19→16:23)
[2017-03-05 08:52] LABS: BASOPHILS % 0.2 % (0.0-2.0); EOSINOPHILS # 0.1 10^3/ul (0.0-0.5); HEMATOCRIT 33.5 % (42.0-52.0); LYMPHOCYTES # 1.1 10^3/ul (0.8-2.9); MEAN CORPUSCULAR HEMOGLOBIN 28.4 pg (29.0-33.0); MEAN CORPUSCULAR HGB CONC 32.8 g/dl (32.0-37.0); MEAN CORPUSCULAR VOLUME 86.3 fl (82.0-101.0); MEAN PLATELET VOLUME 8.9 fl (7.4-10.4); MONOCYTE # 0.6 10^3/ul (0.3-0.9); MONOCYTES % 6.6 % (0.0-11.0); NEUTROPHIL # 7.9 10^3/ul (1.6-7.5); NEUTROPHILS % 80.3 % (39.0-77.0); PLATELET COUNT 297 10^3/UL (140-415); RED BLOOD COUNT 3.88 10^6/ul (4.70-6.10); RED CELL DISTRIBUTION WIDTH 13.1 % (11.5-14.5); WHITE BLOOD COUNT 9.8 10^3/ul (4.8-10.8)
[2017-03-05] MEDS: LISINOPRIL 10 MG TAB PO SCH (09:02)
[2017-03-05] MEDS: LORATADINE 10 MG TAB PO SCH (09:02)
[2017-03-05] MEDS: INSULIN GLARGINE [LANtus] 3 ML PEN SC SCH (09:04)
[2017-03-05] MEDS: INSULIN ASPART [NOVOLOG] 3 ML PEN SC SCH ×7 (09:06→21:00)
[2017-03-05] MEDS: SOD CHLORIDE 0.9% 1,000 ML IV SCH ×2 (09:08→14:48)
[2017-03-05 09:24] LABS: CALCIUM 8.7 mg/dl (8.4-10.2); CREATININE 0.65 mg/dl (0.61-1.24)
--- NOTE | 2017-03-05 10:00 | PN ---
Date/Time of Note Date/Time of Note DATE: 03/05/17 TIME: 09:55 Assessment/Plan VTE Prophylaxis VTE Prophylaxis Intervention: SCD's Lines/Catheters IV [facility]from [facility]): Saline Lock Urinary Cath still in place: No Assessment/Plan Chief Complaint/Hosp Course Assessment and plan 1. Right foot fourth toe gangrene. Podiatry is following. ID consult is also following. Continue antibiotics. s/p amputation of right foot fourth toe 2. Diabetes. Uncontrolled. Continue insulin regimen. Will get clinical unit educator. 3. dyslipidemia. Continue on statin 4. htn. Continue antihypertensives and adjust as needed. Disposition plan: continue abx. continue with wound care. analgesics as needed . follow up with surgeon recs Discussed with Dr. Emerson Problems: Subjective 24 Hr Interval Summary Free Text/Dictation Patient resting at this time. Denies any pain on right foot. Comfortable at present. Exam/Review of Systems Vital Signs Vitals Vital Signs Date Time Temp Pulse Resp B/P Pulse Ox O2 Delivery O2 Flow Rate FiO2 03/05/17 08:14 70 03/05/17 07:30 98.5 18 113/66 97 Intake and Output 03/04/17 03/04/17 03/05/17 15:00 23:00 07:00 Intake Total 500 ml Output Total 1200 ml Balance -700 ml Exam Constitutional: alert, oriented Psych: nl mood/affect Head: normocephalic Eyes: nl conjunctiva ENMT: nl external ears & nose Respiratory: clear to auscultation, normal air movement Cardiovascular: regular rate and rhythm Gastrointestinal: non-tender, soft Musculoskeletal: other (right fourth toe gangrene s/p amputation ) Results Result Diagram: 03/05/17 0816 03/05/17 0816 Results 24 hrs Laboratory Tests Test 03/04/17 12:11 03/04/17 14:52 03/04/17 19:28 03/05/17 08:16 Bedside Glucose 190 204 Vancomycin Level Trough 10.3 White Blood Count 9.8 Red Blood Count 3.88 L Hemoglobin 11.0 L Hematocrit 33.5 L Mean Corpuscular Volume 86.3 Mean Corpuscular Hemoglobin 28.4 L Mean Corpuscular Hemoglobin Concent 32.8 Red Cell Distribution Width 13.1 Platelet Count 297 Mean Platelet Volume 8.9 Neutrophils % 80.3 H Lymphocytes % 11.0 L Monocytes % 6.6 Eosinophils % 1.0 Basophils % 0.2 Nucleated Red Blood Cells % 0.0 Neutrophils # 7.9 H Lymphocytes # 1.1 Monocytes # 0.6 Eosinophils # 0.1 Basophils # 0.0 Nucleated Red Blood Cells # 0.0 Sodium Level 137 Potassium Level 4.0 Chloride Level 101 Carbon Dioxide Level 23 Anion Gap 17 H Blood Urea Nitrogen 11 Creatinine 0.65 Glucose Level 215 Calcium Level 8.7 Test 03/05/17 08:36 Bedside Glucose 192 Medications Medications Current Medications Sodium Chloride (NS) 1,000 ml @ 80 mls/hr [id number] IV Last administered on 03/04 21:30; Admin Dose 80 MLS/HR; Start 03/03/17 at 08:00 Acetaminophen (Tylenol Tab) 650 mg Q6H PRN PO PAIN LEVEL 1-3 OR FEVER Last administered on 03/04/17 06:47; Admin Dose 650 MG; Start 03/03/17 at 08:00 Morphine Sulfate (morphine) 4 mg Q4H PRN IV PAIN LEVEL 7-10; Start 03/03/17 at 08:00 Atorvastatin Calcium (Lipitor) 20 mg QHS PO Last administered on 03/04/17 21: 00; Admin Dose 20 MG; Start 03/03/17 at 21:00 Lisinopril (Zestril) 10 mg DAILY PO Last administered on 03/05/17 09:02; Admin Dose 10 MG; Start 03/04/17 at 09:00 Loratadine (Claritin) 10 mg DAILY PO Last administered on 03/05/17 09:02; Admin Dose 10 MG; Start 03/04/17 at 09:00 Diagnostic Test (Pha) (Accu-Chek) 1 ea 02 XX Last administered on 03/05/17 02: 44; Admin Dose 1 EA; Start 03/04/17 at 02:00 Miscellaneous Information 1 ea NOTE XX ; Start 03/03/17 at 14:00 Glucose (Glutose) 15 gm Q15M PRN PO DECREASED GLUCOSE; Start 03/03/17 at 14:00 Glucose (Glutose) 22.5 gm Q15M PRN PO DECREASED GLUCOSE; Start 03/03/17 at 14: 00 Dextrose (D50w Syringe) 25 ml Q15M PRN IV DECREASED GLUCOSE; Start 03/03/17 at 14:00 Dextrose (D50w Syringe) 50 ml Q15M PRN IV DECREASED GLUCOSE; Start 03/03/17 at 14:00 Glucagon (Glucagen) 1 mg Q15M PRN IM DECREASED GLUCOSE; Start 03/03/17 at 14:00 Glucose 15 gm 15 gm Q15M PRN BUCCAL DECREASED GLUCOSE; Start 03/03/17 at 14:00 Levofloxacin/ Dextrose 100 ml @ 100 mls/hr Q24H IVPB Last administered on 03/04 15:55; Admin Dose 100 MLS/HR; Start 03/03/17 at 15:00 Vancomycin HCl/ Sodium Chloride (Vancocin/NS) 250 ml @ 83.333 mls/ hr Q8H IVPB Last administered on 03/05/17 08:19; Admin Dose 83.333 MLS/HR; Start at 15:30 Insulin Glargine (Lantus) 24 unit DAILY@08 SC Last administered on 03/05/17 09 :04; Admin Dose 24 UNIT; Start 03/05/17 at 08:00 DARREN HOUSE Mar 05, 2017 10:00
--- NOTE | 2017-03-05 12:54 | CONS ---
Date/Time of Note Date/Time of Note DATE: 03/05/17 TIME: 12:52 Consult Date/Type/Reason Admit Date/Time Mar 03, 2017 at 01:49 Initial Consult Date 03/03/17 Type of Consultation: ID Objective Vital Signs Date Time Temp Pulse Resp B/P Pulse Ox O2 Delivery O2 Flow Rate FiO2 03/05/17 12:17 72 03/05/17 11:31 99.9 18 125/65 96 Intake and Output 03/04/17 03/04/17 03/05/17 15:00 23:00 07:00 Intake Total 500 ml Output Total 1200 ml Balance -700 ml Results/Medications Result Diagram: 03/05/17 0816 03/05/17 0816 Results 24 hrs Laboratory Tests Test 03/04/17 14:52 03/04/17 19:28 03/05/17 08:16 03/05/17 08:36 Vancomycin Level Trough 10.3 Bedside Glucose 204 192 White Blood Count 9.8 Red Blood Count 3.88 L Hemoglobin 11.0 L Hematocrit 33.5 L Mean Corpuscular Volume 86.3 Mean Corpuscular Hemoglobin 28.4 L Mean Corpuscular Hemoglobin Concent 32.8 Red Cell Distribution Width 13.1 Platelet Count 297 Mean Platelet Volume 8.9 Neutrophils % 80.3 H Lymphocytes % 11.0 L Monocytes % 6.6 Eosinophils % 1.0 Basophils % 0.2 Nucleated Red Blood Cells % 0.0 Neutrophils # 7.9 H Lymphocytes # 1.1 Monocytes # 0.6 Eosinophils # 0.1 Basophils # 0.0 Nucleated Red Blood Cells # 0.0 Sodium Level 137 Potassium Level 4.0 Chloride Level 101 Carbon Dioxide Level 23 Anion Gap 17 H Blood Urea Nitrogen 11 Creatinine 0.65 Glucose Level 215 Calcium Level 8.7 Test 03/05/17 12:35 Bedside Glucose 287 H Medications Current Medications Sodium Chloride (NS) 1,000 ml @ 80 mls/hr [id number] IV Last administered on 03/04 21:30; Admin Dose 80 MLS/HR; Start 03/03/17 at 08:00 Acetaminophen (Tylenol Tab) 650 mg Q6H PRN PO PAIN LEVEL 1-3 OR FEVER Last administered on 03/04/17 06:47; Admin Dose 650 MG; Start 03/03/17 at 08:00 Morphine Sulfate (morphine) 4 mg Q4H PRN IV PAIN LEVEL 7-10; Start 03/03/17 at 08:00 Atorvastatin Calcium (Lipitor) 20 mg QHS PO Last administered on 03/04/17 21: 00; Admin Dose 20 MG; Start 03/03/17 at 21:00 Lisinopril (Zestril) 10 mg DAILY PO Last administered on 03/05/17 09:02; Admin Dose 10 MG; Start 03/04/17 at 09:00 Loratadine (Claritin) 10 mg DAILY PO Last administered on 03/05/17 09:02; Admin Dose 10 MG; Start 03/04/17 at 09:00 Diagnostic Test (Pha) (Accu-Chek) 1 ea 02 XX Last administered on 03/05/17 02: 44; Admin Dose 1 EA; Start 03/04/17 at 02:00 Miscellaneous Information 1 ea NOTE XX ; Start 03/03/17 at 14:00 Glucose (Glutose) 15 gm Q15M PRN PO DECREASED GLUCOSE; Start 03/03/17 at 14:00 Glucose (Glutose) 22.5 gm Q15M PRN PO DECREASED GLUCOSE; Start 03/03/17 at 14: 00 Dextrose (D50w Syringe) 25 ml Q15M PRN IV DECREASED GLUCOSE; Start 03/03/17 at 14:00 Dextrose (D50w Syringe) 50 ml Q15M PRN IV DECREASED GLUCOSE; Start 03/03/17 at 14:00 Glucagon (Glucagen) 1 mg Q15M PRN IM DECREASED GLUCOSE; Start 03/03/17 at 14:00 Glucose 15 gm 15 gm Q15M PRN BUCCAL DECREASED GLUCOSE; Start 03/03/17 at 14:00 Levofloxacin/ Dextrose 100 ml @ 100 mls/hr Q24H IVPB Last administered on 03/04 15:55; Admin Dose 100 MLS/HR; Start 03/03/17 at 15:00 Vancomycin HCl/ Sodium Chloride (Vancocin/NS) 250 ml @ 83.333 mls/ hr Q8H IVPB Last administered on 03/05/17 08:19; Admin Dose 83.333 MLS/HR; Start at 15:30 Insulin Glargine (Lantus) 24 unit DAILY@08 SC Last administered on 03/05/17 09 :04; Admin Dose 24 UNIT; Start 03/05/17 at 08:00 Assessment/Plan Chief Complaint/Hosp Course SUBJECTIVE: Febrile, looks comfortable, family at bedside ANTIMICROBIALS: 1. Vancomycin. 2. Levaquin. PHYSICAL EXAMINATION: GENERAL: Well-developed, middle-aged man who is alert, in no distress. HEENT: Head atraumatic, normocephalic. Sclerae anicteric. Buccal mucosa dry. NECK: Supple. CHEST: Rise symmetrical. Breath sounds clear. HEART: S1, S2. ABDOMEN: Soft, bowel sounds present. EXTREMITIES: RLE dsg intact ASSESSMENT: 1. Diabetic foot ulceration with fourth toe gangrene and cellulitis of the foot , possible abscess, s/p i&d/toe amputation. 2. Diabetes. 3. Hypertension. 4. SIRS PLAN: The patient remains stable. Will repeat bld cxm continue abx, await for MRI, f/u podiatry rec-s DW pt/family at bedside Problems: MIGUELINA RUDOLPH NP Mar 05, 2017 12:54
[2017-03-05] MEDS: LEVOFLOXACIN 500MG/D5W (PMX) 100 ML IVPB SCH (14:48)
--- NOTE | 2017-03-05 20:22 | PN ---
Date/Time of Note Date/Time of Note DATE: 03/05/17 TIME: 20:17 Assessment/Plan Lines/Catheters IV Catheter Type (from Nrsg): Peripheral IV Rollins in Place (from Nrsg): No Assessment/Plan Problems: (1) Acquired absence of other right toe(s) (2) Postop check (3) Diabetes, polyneuropathy Assessment/Plan Significant improvement noted Cellulitis is resolved Abscess is resolved Has open wound which will remain open for now; goal is to have granulation tissue formation over time Daily dressing change right foot with Santyl ointment May be discharged as per foot and ankle surgery Follow up at [facility] in one week Partial weightbearing OK with post op shoe and crutches Subjective 24 Hr Interval Summary Patient was seen at bedside. Patient is in no acute distress. Denies overnight adverse events. Denies fever, chills, nausea or vomiting. Reports bandages are being changed daily. Denies recent trauma. Patient s/p right 4th toe amputation with I&D of right foot abscess with cellulitis. Constitutional: no complaints Pain Control: well controlled Exam/Review of Systems Vital Signs Vitals Vital Signs Date Time Temp Pulse Resp B/P Pulse Ox O2 Delivery O2 Flow Rate FiO2 03/05/17 20:08 99.2 74 20 122/60 96 Intake and Output 03/04/17 03/04/17 03/05/17 15:00 23:00 07:00 Intake Total 500 ml Output Total 1200 ml Balance -700 ml Exam Free Text/Dictation GENERAL: in NAD laying supine in bed; DSG intact, clean and dry--removed for exam VASC: decrease in edema of the right foot; palpable DP and PT NEURO: decreased sensation to sharp, dull, vibratory and temperature stimuli DERM: open wound dorsal right foot and right 4th amputation site; there is decrease in maceration and significant decrease in erythema of the right foot; packing present in the wound which was also removed today ORTHO: s/p right 4th toe amputation with no tenderness to palpation; contracted toes noted on remaining toes IMAGING: reviewed LABS: reviewed Results Result Diagram: 03/05/1716 03/05/1716 LOUANN JORDAN DPM Mar 05, 2017 20:22
[2017-03-05] MEDS: ATORVASTATIN 20 MG TAB PO SCH (20:58)
[2017-03-06] VITALS (12 sets, daily range): BP systolic 110–126; BP diastolic 55–77; PULSE 64–104; RESP 17–20
[2017-03-06] MEDS: VANCOMYCIN 1.25 GM in SOD CHLORIDE 0.9% 250 ML IVPB SCH ×3 (01:03→16:20)
[2017-03-06] MEDS: ACCU-CHEK XX SCH (02:00)
[2017-03-06 08:02] LABS: BASOPHILS % 0.4 % (0.0-2.0); EOSINOPHILS # 0.1 10^3/ul (0.0-0.5); EOSINOPHILS % 1.5 % (0.0-7.0); HEMATOCRIT 33.4 % (42.0-52.0); HEMOGLOBIN 11.2 g/dl (14.0-18.0); LYMPHOCYTES % 12.9 % (15.0-51.0); MEAN CORPUSCULAR HEMOGLOBIN 29.2 pg (29.0-33.0); MEAN CORPUSCULAR HGB CONC 33.5 g/dl (32.0-37.0); MEAN CORPUSCULAR VOLUME 87.2 fl (82.0-101.0); MEAN PLATELET VOLUME 8.8 fl (7.4-10.4); MONOCYTE # 0.5 10^3/ul (0.3-0.9); MONOCYTES % 6.4 % (0.0-11.0); NEUTROPHIL # 6.3 10^3/ul (1.6-7.5); NEUTROPHILS % 78.2 % (39.0-77.0); PLATELET COUNT 346 10^3/UL (140-415); RED BLOOD COUNT 3.83 10^6/ul (4.70-6.10); RED CELL DISTRIBUTION WIDTH 12.7 % (11.5-14.5)
[2017-03-06 08:17] LABS: CALCIUM 8.6 mg/dl (8.4-10.2); CREATININE 0.66 mg/dl (0.61-1.24); POTASSIUM 3.5 mmol/L (3.5-5.1)
[2017-03-06] MEDS: INSULIN GLARGINE [LANtus] 3 ML PEN SC SCH (08:52)
[2017-03-06] MEDS: INSULIN ASPART [NOVOLOG] 3 ML PEN SC SCH ×7 (08:53→20:27)
[2017-03-06] MEDS: LISINOPRIL 10 MG TAB PO SCH (08:57)
[2017-03-06] MEDS: LORATADINE 10 MG TAB PO SCH (08:57)
--- NOTE | 2017-03-06 09:01 | RADRPT ---
PROCEDURE: MRI OF THE RIGHT FOOT. CLINICAL INDICATION: Osteomyelitis of the right foot with swelling and pain. History of fourth toe r emoval 1 day ago and trauma 3 days ago. TECHNIQUE: Multiple MRI images of the right foot were obtained in multiple planes utilizing multip le pulse sequences. Images were interpreted on the high-resolution PACS system. COMPARISON: 03/04/2017 radiographs FINDINGS: 1st ray: There is no acute fracture or bone marrow edema. There is no evidence for osteomyelitis. Th ere is mild partial-thickness chondral loss within the first metatarsophalangeal joint with osseous spurring. The collateral ligaments are intact. There is no significant joint effusion. There is a mu ltipartite medial sesamoid with sclerosis. 2nd ray: There is no acute fracture or bone marrow edema. The metatarsophalangeal joint is intact. T he chondral surfaces are preserved. The collateral ligaments are intact. There is no significant erasmo nt effusion. There is no evidence for osteomyelitis. Plantar plate appears intact. 3rd ray through 5th ray: Postsurgical changes of amputation of the fourth phalanges are noted. There is mild bone marrow edema within the fourth metatarsal shaft with slight hazy dark T1 signal within the metatarsal head and neck. No bony destructive changes are present. There is soft tissue edema a djacent to the fourth metatarsal stump but no drainable abscess. There is no acute fracture or evidence of osteomyelitis within the third or fifth digits. There is m ild bone marrow edema within the third metatarsal head and neck, likely reactive. The metatarsophala ngeal joints are intact. MIDFOOT: The visualized tarsometatarsal joints are intact. The Lisfranc's ligament is intact. Other findings: There is no evidence for neuroma. No evidence for plantar fibroma. No solid mass l esion identified. There is diffuse edema within the subcutaneous soft tissues around the foot, more prominent dorsally . RPTAT: ZZ IMPRESSION: 1. Post amputation of the fourth phalanges. Mild marrow edema within the fourth metatarsal, more pro minent within the metatarsal head and neck which may be reactive although a small focus of mild oste omyelitis may be present within the metatarsal head and neck without bony destructive changes. Soft tissue edema within the foot which may be from recent postsurgical change and/or cellulitis. 2. Mild bone marrow reactive change within the third metatarsal head and neck. No significant eviden ce of osteomyelitis within the remaining digits. 3. 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 .Suad Medina MD, Date Time Electronically viewed and signed by .Suad Medina MD, on 03/06/2017 09:01 .T/
[2017-03-06] MEDS: SOD CHLORIDE 0.9% 1,000 ML IV SCH ×2 (11:00→16:21)
--- NOTE | 2017-03-06 13:20 | CONS ---
Date/Time of Note Date/Time of Note DATE: 03/06/17 TIME: 13:18 Consult Date/Type/Reason Admit Date/Time Mar 03, 2017 at 01:49 Initial Consult Date 03/03/17 Type of Consultation: ID Objective Vital Signs Date Time Temp Pulse Resp B/P Pulse Ox O2 Delivery O2 Flow Rate FiO2 03/06/17 12:09 82 03/06/17 11:43 98.4 17 124/65 97 Intake and Output 03/05/17 03/05/17 03/06/17 15:00 23:00 07:00 Intake Total 250 ml 1490 ml Output Total 1500 ml Balance 250 ml -10 ml Results/Medications Result Diagram: 03/06/17 0648 03/06/17 0648 Results 24 hrs Laboratory Tests Test 03/05/17 17:11 03/05/17 20:56 03/06/17 06:48 03/06/17 08:17 Bedside Glucose 268 H 195 214 White Blood Count 8.0 Red Blood Count 3.83 L Hemoglobin 11.2 L Hematocrit 33.4 L Mean Corpuscular Volume 87.2 Mean Corpuscular Hemoglobin 29.2 Mean Corpuscular Hemoglobin Concent 33.5 Red Cell Distribution Width 12.7 Platelet Count 346 Mean Platelet Volume 8.8 Neutrophils % 78.2 H Lymphocytes % 12.9 L Monocytes % 6.4 Eosinophils % 1.5 Basophils % 0.4 Nucleated Red Blood Cells % 0.0 Neutrophils # 6.3 Lymphocytes # 1.0 Monocytes # 0.5 Eosinophils # 0.1 Basophils # 0.0 Nucleated Red Blood Cells # 0.0 Sodium Level 138 Potassium Level 3.5 Chloride Level 101 Carbon Dioxide Level 28 Anion Gap 13 Blood Urea Nitrogen 7 Creatinine 0.66 Glucose Level 221 H Calcium Level 8.6 Test 03/06/17 12:26 Bedside Glucose 124 Medications Current Medications Sodium Chloride (NS) 1,000 ml @ 80 mls/hr [id number] IV Last administered on 03/05 14:48; Admin Dose 80 MLS/HR; Start 03/03/17 at 08:00 Acetaminophen (Tylenol Tab) 650 mg Q6H PRN PO PAIN LEVEL 1-3 OR FEVER Last administered on 03/04/17 06:47; Admin Dose 650 MG; Start 03/03/17 at 08:00 Morphine Sulfate (morphine) 4 mg Q4H PRN IV PAIN LEVEL 7-10; Start 03/03/17 at 08:00 Atorvastatin Calcium (Lipitor) 20 mg QHS PO Last administered on 03/05/17 20: 58; Admin Dose 20 MG; Start 03/03/17 at 21:00 Lisinopril (Zestril) 10 mg DAILY PO Last administered on 03/06/17 08:57; Admin Dose 10 MG; Start 03/04/17 at 09:00 Loratadine (Claritin) 10 mg DAILY PO Last administered on 03/06/17 08:57; Admin Dose 10 MG; Start 03/04/17 at 09:00 Diagnostic Test (Pha) (Accu-Chek) 1 ea 02 XX Last administered on 03/06/17 02: 00; Admin Dose 1 EA; Start 03/04/17 at 02:00 Miscellaneous Information 1 ea NOTE XX ; Start 03/03/17 at 14:00 Glucose (Glutose) 15 gm Q15M PRN PO DECREASED GLUCOSE; Start 03/03/17 at 14:00 Glucose (Glutose) 22.5 gm Q15M PRN PO DECREASED GLUCOSE; Start 03/03/17 at 14: 00 Dextrose (D50w Syringe) 25 ml Q15M PRN IV DECREASED GLUCOSE; Start 03/03/17 at 14:00 Dextrose (D50w Syringe) 50 ml Q15M PRN IV DECREASED GLUCOSE; Start 03/03/17 at 14:00 Glucagon (Glucagen) 1 mg Q15M PRN IM DECREASED GLUCOSE; Start 03/03/17 at 14:00 Glucose 15 gm 15 gm Q15M PRN BUCCAL DECREASED GLUCOSE; Start 03/03/17 at 14:00 Levofloxacin/ Dextrose 100 ml @ 100 mls/hr Q24H IVPB Last administered on 03/05 14:48; Admin Dose 100 MLS/HR; Start 03/03/17 at 15:00 Vancomycin HCl/ Sodium Chloride (Vancocin/NS) 250 ml @ 83.333 mls/ hr Q8H IVPB Last administered on 03/06/17 08:33; Admin Dose 83.333 MLS/HR; Start at 15:30 Insulin Glargine (Lantus) 24 unit DAILY@08 SC Last administered on 03/06/17 08 :52; Admin Dose 24 UNIT; Start 03/05/17 at 08:00 Assessment/Plan Chief Complaint/Hosp Course SUBJECTIVE: Awake, looks comfortable ANTIMICROBIALS: 1. Vancomycin. 2. Levaquin. PHYSICAL EXAMINATION: GENERAL: Well-developed, middle-aged man who is alert, in no distress. HEENT: Head atraumatic, normocephalic. Sclerae anicteric. Buccal mucosa dry. NECK: Supple. CHEST: Rise symmetrical. Breath sounds clear. HEART: S1, S2. ABDOMEN: Soft, bowel sounds present. EXTREMITIES: RLE dsg intact ASSESSMENT: 1. Diabetic foot ulceration with fourth toe gangrene and cellulitis of the foot , s/p i&d/toe amputation. 2. Diabetes. 3. Hypertension. 4. SIRS PLAN: The patient remains stable. Continue abx, await for final cx, f/u podiatry rec-s. No OM per MRI DW staff Problems: MIGUELINA RUDOLPH NP Mar 06, 2017 13:20
--- NOTE | 2017-03-06 13:41 | PN ---
Date/Time of Note Date/Time of Note DATE: 03/06/17 TIME: 13:39 Assessment/Plan VTE Prophylaxis VTE Prophylaxis Intervention: SCD's Lines/Catheters IV Catheter Type (from [facility]): Peripheral IV Urinary Cath still in place: No Assessment/Plan Chief Complaint/Hosp Course Assessment and plan 1. Right foot fourth toe gangrene. Podiatry is following. ID consult is also following. Continue antibiotics. s/p amputation of right foot fourth toe. continue with wound care. awaiting final wound culture 2. Diabetes. continue insulin regimen. 3. dyslipidemia. Continue on statin 4. htn. Continue antihypertensives and adjust as needed. Disposition plan: continue abx. continue with wound care. follow up with final wound culture. anticipate d/c within the next 24 hours if medically stable and cleared by consultants Discussed with Dr. Emerson Problems: Subjective 24 Hr Interval Summary Free Text/Dictation no s/s of distress. no reports of pain Exam/Review of Systems Vital Signs Vitals Vital Signs Date Time Temp Pulse Resp B/P Pulse Ox O2 Delivery O2 Flow Rate FiO2 03/06/17 12:09 82 03/06/17 11:43 98.4 17 124/65 97 Intake and Output 03/05/17 03/05/17 03/06/17 14:59 22:59 06:59 Intake Total 250 ml 1490 ml Output Total 1500 ml Balance 250 ml -10 ml Exam Constitutional: alert, oriented Psych: nl mood/affect Head: normocephalic Eyes: nl conjunctiva ENMT: nl external ears & nose Respiratory: clear to auscultation, normal air movement Cardiovascular: regular rate and rhythm Gastrointestinal: non-tender, soft Musculoskeletal: other (right fourth toe gangrene s/p amputation ) Results Result Diagram: 03/06/17 0648 03/06/17 0648 Results 24 hrs Laboratory Tests Test 03/05/17 17:11 03/05/17 20:56 03/06/17 06:48 03/06/17 08:17 Bedside Glucose 268 H 195 214 White Blood Count 8.0 Red Blood Count 3.83 L Hemoglobin 11.2 L Hematocrit 33.4 L Mean Corpuscular Volume 87.2 Mean Corpuscular Hemoglobin 29.2 Mean Corpuscular Hemoglobin Concent 33.5 Red Cell Distribution Width 12.7 Platelet Count 346 Mean Platelet Volume 8.8 Neutrophils % 78.2 H Lymphocytes % 12.9 L Monocytes % 6.4 Eosinophils % 1.5 Basophils % 0.4 Nucleated Red Blood Cells % 0.0 Neutrophils # 6.3 Lymphocytes # 1.0 Monocytes # 0.5 Eosinophils # 0.1 Basophils # 0.0 Nucleated Red Blood Cells # 0.0 Sodium Level 138 Potassium Level 3.5 Chloride Level 101 Carbon Dioxide Level 28 Anion Gap 13 Blood Urea Nitrogen 7 Creatinine 0.66 Glucose Level 221 H Calcium Level 8.6 Test 03/06/17 12:26 Bedside Glucose 124 Medications Medications Current Medications Sodium Chloride (NS) 1,000 ml @ 80 mls/hr [id number] IV Last administered on 03/05 14:48; Admin Dose 80 MLS/HR; Start 03/03/17 at 08:00 Acetaminophen (Tylenol Tab) 650 mg Q6H PRN PO PAIN LEVEL 1-3 OR FEVER Last administered on 03/04/17 06:47; Admin Dose 650 MG; Start 03/03/17 at 08:00 Morphine Sulfate (morphine) 4 mg Q4H PRN IV PAIN LEVEL 7-10; Start 03/03/17 at 08:00 Atorvastatin Calcium (Lipitor) 20 mg QHS PO Last administered on 03/05/17 20: 58; Admin Dose 20 MG; Start 03/03/17 at 21:00 Lisinopril (Zestril) 10 mg DAILY PO Last administered on 03/06/17 08:57; Admin Dose 10 MG; Start 03/04/17 at 09:00 Loratadine (Claritin) 10 mg DAILY PO Last administered on 03/06/17 08:57; Admin Dose 10 MG; Start 03/04/17 at 09:00 Diagnostic Test (Pha) (Accu-Chek) 1 ea 02 XX Last administered on 03/06/17 02: 00; Admin Dose 1 EA; Start 03/04/17 at 02:00 Miscellaneous Information 1 ea NOTE XX ; Start 03/03/17 at 14:00 Glucose (Glutose) 15 gm Q15M PRN PO DECREASED GLUCOSE; Start 03/03/17 at 14:00 Glucose (Glutose) 22.5 gm Q15M PRN PO DECREASED GLUCOSE; Start 03/03/17 at 14: 00 Dextrose (D50w Syringe) 25 ml Q15M PRN IV DECREASED GLUCOSE; Start 03/03/17 at 14:00 Dextrose (D50w Syringe) 50 ml Q15M PRN IV DECREASED GLUCOSE; Start 03/03/17 at 14:00 Glucagon (Glucagen) 1 mg Q15M PRN IM DECREASED GLUCOSE; Start 03/03/17 at 14:00 Glucose 15 gm 15 gm Q15M PRN BUCCAL DECREASED GLUCOSE; Start 03/03/17 at 14:00 Levofloxacin/ Dextrose 100 ml @ 100 mls/hr Q24H IVPB Last administered on 03/05 14:48; Admin Dose 100 MLS/HR; Start 03/03/17 at 15:00 Vancomycin HCl/ Sodium Chloride (Vancocin/NS) 250 ml @ 83.333 mls/ hr Q8H IVPB Last administered on 03/06/17 08:33; Admin Dose 83.333 MLS/HR; Start at 15:30 Insulin Glargine (Lantus) 24 unit DAILY@08 SC Last administered on 03/06/17 08 :52; Admin Dose 24 UNIT; Start 03/05/17 at 08:00 Miscellaneous Information (*Rx Drug Level Order Reminder*) VANCOMYCIN TROUGH AT 2230 ONCE ONCE XX ; Start 03/06/17 at 22:30; Stop 03/06/17 at 22:31 DARREN HOSUE Mar 06, 2017 13:41
[2017-03-06] MEDS: LEVOFLOXACIN 500MG/D5W (PMX) 100 ML IVPB SCH (15:00)
[2017-03-06] MEDS: ATORVASTATIN 20 MG TAB PO SCH (20:27)
[2017-03-07] VITALS (12 sets, daily range): BP systolic 109–133; BP diastolic 57–70; PULSE 60–85; RESP 16–20
[2017-03-07] MEDS: VANCOMYCIN 1.25 GM in SOD CHLORIDE 0.9% 250 ML IVPB SCH ×2 (00:01→06:57)
[2017-03-07] MEDS: ACCU-CHEK XX SCH (01:36)
[2017-03-07 07:51] LABS: BASOPHILS % 0.3 % (0.0-2.0); EOSINOPHILS # 0.1 10^3/ul (0.0-0.5); HEMATOCRIT 33.1 % (42.0-52.0); HEMOGLOBIN 10.9 g/dl (14.0-18.0); LYMPHOCYTES % 16.8 % (15.0-51.0); MEAN CORPUSCULAR HEMOGLOBIN 28.6 pg (29.0-33.0); MEAN CORPUSCULAR HGB CONC 32.9 g/dl (32.0-37.0); MEAN CORPUSCULAR VOLUME 86.9 fl (82.0-101.0); MEAN PLATELET VOLUME 8.7 fl (7.4-10.4); MONOCYTE # 0.4 10^3/ul (0.3-0.9); MONOCYTES % 6.2 % (0.0-11.0); NEUTROPHIL # 4.5 10^3/ul (1.6-7.5); NEUTROPHILS % 73.9 % (39.0-77.0); PLATELET COUNT 358 10^3/UL (140-415); RED BLOOD COUNT 3.81 10^6/ul (4.70-6.10); RED CELL DISTRIBUTION WIDTH 12.8 % (11.5-14.5); WHITE BLOOD COUNT 6.1 10^3/ul (4.8-10.8)
[2017-03-07 08:14] LABS: CALCIUM 8.7 mg/dl (8.4-10.2); CREATININE 0.67 mg/dl (0.61-1.24); POTASSIUM 3.8 mmol/L (3.5-5.1)
[2017-03-07] MEDS: LORATADINE 10 MG TAB PO SCH (08:35)
[2017-03-07] MEDS: LISINOPRIL 10 MG TAB PO SCH (08:36)
[2017-03-07] MEDS: INSULIN GLARGINE [LANtus] 3 ML PEN SC SCH (08:37)
[2017-03-07] MEDS: INSULIN ASPART [NOVOLOG] 3 ML PEN SC SCH ×7 (08:38→20:12)
--- NOTE | 2017-03-07 10:09 | PN ---
Date/Time of Note Date/Time of Note DATE: 03/07/17 TIME: 10:08 Assessment/Plan VTE Prophylaxis VTE Prophylaxis Intervention: SCD's Lines/Catheters IV C[facility] Type [facility]): Peripheral IV Urinary Cath still in place: No Assessment/Plan Chief Complaint/Hosp Course Assessment and plan 1. Right foot fourth toe gangrene. Podiatry is following. ID consult is also following. Continue antibiotics. s/p amputation of right foot fourth toe. continue with wound care. awaiting final wound culture 2. Diabetes. continue insulin regimen. 3. dyslipidemia. Continue on statin 4. htn. Continue antihypertensives and adjust as needed. Disposition plan: continue abx. overall appears stable. d/c when cleared by [facility] consultant Discussed with Dr. Emerson Problems: Subjective 24 Hr Interval Summary Free Text/Dictation no s/s of distress Exam/Review of Systems Vital Signs Vitals Vital Signs Date Time Temp Pulse Resp B/P Pulse Ox O2 Delivery O2 Flow Rate FiO2 03/07/17 08:11 98.6 63 18 123/66 98 Intake and Output 03/06/17 03/06/17 03/07/17 15:00 23:00 07:00 Intake Total 250 ml 1760 ml 1930 ml Output Total 3000 ml 1400 ml Balance 250 ml -1240 ml 530 ml Exam Constitutional: alert, oriented Psych: nl mood/affect Head: normocephalic Eyes: nl conjunctiva ENMT: nl external ears & nose Respiratory: clear to auscultation, normal air movement Cardiovascular: regular rate and rhythm Gastrointestinal: non-tender, soft Musculoskeletal: other (right fourth toe gangrene s/p amputation ) Results Result Diagram: 03/07/17 0703/07/17 0707 Results 24 hrs Laboratory Tests Test 03/06/17 12:26 03/06/17 17:20 03/06/17 19:44 03/06/17 22:34 Bedside Glucose 124 132 76 Vancomycin Level Trough 14.1 Test 03/07/17 07:07 03/07/17 08:33 White Blood Count 6.1 # Red Blood Count 3.81 L Hemoglobin 10.9 L Hematocrit 33.1 L Mean Corpuscular Volume 86.9 Mean Corpuscular Hemoglobin 28.6 L Mean Corpuscular Hemoglobin Concent 32.9 Red Cell Distribution Width 12.8 Platelet Count 358 Mean Platelet Volume 8.7 Neutrophils % 73.9 Lymphocytes % 16.8 Monocytes % 6.2 Eosinophils % 2.0 Basophils % 0.3 Nucleated Red Blood Cells % 0.0 Neutrophils # 4.5 Lymphocytes # 1.0 Monocytes # 0.4 Eosinophils # 0.1 Basophils # 0.0 Nucleated Red Blood Cells # 0.0 Sodium Level 141 Potassium Level 3.8 Chloride Level 102 Carbon Dioxide Level 27 Anion Gap 16 Blood Urea Nitrogen 8 Creatinine 0.67 Glucose Level 239 H Calcium Level 8.7 Bedside Glucose 209 Medications Medications Current Medications Sodium Chloride (NS) 1,000 ml @ 80 mls/hr [id number] IV Last administered on 03/06 16:21; Admin Dose 80 MLS/HR; Start 03/03/17 at 08:00 Acetaminophen (Tylenol Tab) 650 mg Q6H PRN PO PAIN LEVEL 1-3 OR FEVER Last administered on 03/04/17 06:47; Admin Dose 650 MG; Start 03/03/17 at 08:00 Morphine Sulfate (morphine) 4 mg Q4H PRN IV PAIN LEVEL 7-10; Start 03/03/17 at 08:00 Atorvastatin Calcium (Lipitor) 20 mg QHS PO Last administered on 03/06/17 20: 27; Admin Dose 20 MG; Start 03/03/17 at 21:00 Lisinopril (Zestril) 10 mg DAILY PO Last administered on 03/07/17 08:36; Admin Dose 10 MG; Start 03/04/17 at 09:00 Loratadine (Claritin) 10 mg DAILY PO Last administered on 03/07/17 08:35; Admin Dose 10 MG; Start 03/04/17 at 09:00 Diagnostic Test (Pha) (Accu-Chek) 1 ea 02 XX Last administered on 03/06/17 02: 00; Admin Dose 1 EA; Start 03/04/17 at 02:00 Miscellaneous Information 1 ea NOTE XX ; Start 03/03/17 at 14:00 Glucose (Glutose) 15 gm Q15M PRN PO DECREASED GLUCOSE; Start 03/03/17 at 14:00 Glucose (Glutose) 22.5 gm Q15M PRN PO DECREASED GLUCOSE; Start 03/03/17 at 14: 00 Dextrose (D50w Syringe) 25 ml Q15M PRN IV DECREASED GLUCOSE; Start 03/03/17 at 14:00 Dextrose (D50w Syringe) 50 ml Q15M PRN IV DECREASED GLUCOSE; Start 03/03/17 at 14:00 Glucagon (Glucagen) 1 mg Q15M PRN IM DECREASED GLUCOSE; Start 03/03/17 at 14:00 Glucose 15 gm 15 gm Q15M PRN BUCCAL DECREASED GLUCOSE; Start 03/03/17 at 14:00 Levofloxacin/ Dextrose 100 ml @ 100 mls/hr Q24H IVPB Last administered on 03/06 15:00; Admin Dose 100 MLS/HR; Start 03/03/17 at 15:00 Vancomycin HCl/ Sodium Chloride (Vancocin/NS) 250 ml @ 83.333 mls/ hr Q8H IVPB Last administered on 03/07/17 06:57; Admin Dose 83.333 MLS/HR; Start at 15:30 Insulin Glargine (Lantus) 24 unit DAILY@08 SC Last administered on 03/07/17 08 :37; Admin Dose 24 UNIT; Start 03/05/17 at 08:00 DARREN HOUSE Mar 07, 2017 10:09
[2017-03-07] MEDS: SOD CHLORIDE 0.9% 1,000 ML IV SCH ×2 (12:00→23:30)
--- NOTE | 2017-03-07 14:14 | CONS ---
Date/Time of Note Date/Time of Note DATE: 03/07/17 TIME: 14:12 Assessment/Plan Assessment/Plan Chief Complaint/Hosp Course SUBJECTIVE: Awake, looks comfortable, denies pain, no fevers ANTIMICROBIALS: 1. Vancomycin. 2. Levaquin. PHYSICAL EXAMINATION: GENERAL: Well-developed, middle-aged man who is alert, in no distress. HEENT: Head atraumatic, normocephalic. Sclerae anicteric. Buccal mucosa dry. NECK: Supple. CHEST: Rise symmetrical. Breath sounds clear. HEART: S1, S2. ABDOMEN: Soft, bowel sounds present. EXTREMITIES: RLE dsg intact ASSESSMENT: 1. Diabetic foot ulceration with fourth toe gangrene and cellulitis of the foot , s/p i&d/toe amputation. 2. Diabetes. 3. Hypertension. 4. SIRS PLAN: The patient remains stable. Recommend to keep on current abx for 2 weeks , podiatry rec-s. No OM per MRI [facility] staff Problems: Consultation Date/Type/Reason Admit Date/Time Mar 03, 2017 at 01:49 Initial Consult Date 03/03/17 Type of Consultation: ID Exam/Review of Systems Vital Signs Vitals Vital Signs Date Time Temp Pulse Resp B/P Pulse Ox O2 Delivery O2 Flow Rate FiO2 03/07/17 12:02 80 03/07/17 11:37 98.2 18 109/60 98 Intake and Output 03/06/17 03/06/17 03/07/17 15:00 23:00 07:00 Intake Total 250 ml 1760 ml 1930 ml Output Total 3000 ml 1400 ml Balance 250 ml -1240 ml 530 ml Results Result Diagram: 03/07/17 0707 03/07/17 0707 Results 24 hrs Laboratory Tests Test 03/06/17 17:20 03/06/17 19:44 03/06/17 22:34 03/07/17 07:07 Bedside Glucose 132 76 Vancomycin Level Trough 14.1 White Blood Count 6.1 # Red Blood Count 3.81 L Hemoglobin 10.9 L Hematocrit 33.1 L Mean Corpuscular Volume 86.9 Mean Corpuscular Hemoglobin 28.6 L Mean Corpuscular Hemoglobin Concent 32.9 Red Cell Distribution Width 12.8 Platelet Count 358 Mean Platelet Volume 8.7 Neutrophils % 73.9 Lymphocytes % 16.8 Monocytes % 6.2 Eosinophils % 2.0 Basophils % 0.3 Nucleated Red Blood Cells % 0.0 Neutrophils # 4.5 Lymphocytes # 1.0 Monocytes # 0.4 Eosinophils # 0.1 Basophils # 0.0 Nucleated Red Blood Cells # 0.0 Sodium Level 141 Potassium Level 3.8 Chloride Level 102 Carbon Dioxide Level 27 Anion Gap 16 Blood Urea Nitrogen 8 Creatinine 0.67 Glucose Level 239 H Calcium Level 8.7 Test 03/07/17 08:33 03/07/17 12:24 Bedside Glucose 209 254 H Medications Medications Current Medications Sodium Chloride (NS) 1,000 ml @ 80 mls/hr [id number] IV Last administered on 03/06 16:21; Admin Dose 80 MLS/HR; Start 03/03/17 at 08:00 Acetaminophen (Tylenol Tab) 650 mg Q6H PRN PO PAIN LEVEL 1-3 OR FEVER Last administered on 03/04/17 06:47; Admin Dose 650 MG; Start 03/03/17 at 08:00 Morphine Sulfate (morphine) 4 mg Q4H PRN IV PAIN LEVEL 7-10; Start 03/03/17 at 08:00 Atorvastatin Calcium (Lipitor) 20 mg QHS PO Last administered on 03/06/17 20: 27; Admin Dose 20 MG; Start 03/03/17 at 21:00 Lisinopril (Zestril) 10 mg DAILY PO Last administered on 03/07/17 08:36; Admin Dose 10 MG; Start 03/04/17 at 09:00 Loratadine (Claritin) 10 mg DAILY PO Last administered on 03/07/17 08:35; Admin Dose 10 MG; Start 03/04/17 at 09:00 Diagnostic Test (Pha) (Accu-Chek) 1 ea 02 XX Last administered on 03/06/17 02: 00; Admin Dose 1 EA; Start 03/04/17 at 02:00 Miscellaneous Information 1 ea NOTE XX ; Start 03/03/17 at 14:00 Glucose (Glutose) 15 gm Q15M PRN PO DECREASED GLUCOSE; Start 03/03/17 at 14:00 Glucose (Glutose) 22.5 gm Q15M PRN PO DECREASED GLUCOSE; Start 03/03/17 at 14: 00 Dextrose (D50w Syringe) 25 ml Q15M PRN IV DECREASED GLUCOSE; Start 03/03/17 at 14:00 Dextrose (D50w Syringe) 50 ml Q15M PRN IV DECREASED GLUCOSE; Start 03/03/17 at 14:00 Glucagon (Glucagen) 1 mg Q15M PRN IM DECREASED GLUCOSE; Start 03/03/17 at 14:00 Glucose 15 gm 15 gm Q15M PRN BUCCAL DECREASED GLUCOSE; Start 03/03/17 at 14:00 Levofloxacin/ Dextrose (Levaquin 500mg/ D5W 100 ml (Pmx)) 100 ml @ 100 mls/hr Q24H IVPB Last administered on 03/06/17 15:00; Admin Dose 100 MLS/HR; Start 03/03/17 at 15:00 Insulin Glargine 24 unit 24 unit DAILY@08 SC Last administered on 03/07/17 08: 37; Admin Dose 24 UNIT; Start 03/05/17 at 08:00 Vancomycin HCl (Vancocin) 250 ml @ 125 mls/hr Q8H IVPB ; Start 03/07/17 at 16: 00 MIGUELINA RUDOLPH NP Mar 07, 2017 14:13
[2017-03-07] MEDS: LEVOFLOXACIN 500MG/D5W (PMX) 100 ML IVPB SCH (15:46)
[2017-03-07] MEDS: VANCOMYCIN 1 GM in NS 250 ML IVPB SCH ×2 (17:02→23:36)
[2017-03-07] MEDS: ATORVASTATIN 20 MG TAB PO SCH (20:11)
[2017-03-08] VITALS (12 sets, daily range): BP systolic 109–137; BP diastolic 62–70; PULSE 63–78; RESP 16–18
[2017-03-08] MEDS: ACCU-CHEK XX SCH (01:53)
[2017-03-08 07:28] LABS: BASOPHILS % 0.4 % (0.0-2.0); EOSINOPHILS # 0.1 10^3/ul (0.0-0.5); EOSINOPHILS % 1.9 % (0.0-7.0); HEMATOCRIT 32.3 % (42.0-52.0); HEMOGLOBIN 10.5 g/dl (14.0-18.0); LYMPHOCYTES # 1.2 10^3/ul (0.8-2.9); LYMPHOCYTES % 16.8 % (15.0-51.0); MEAN CORPUSCULAR HEMOGLOBIN 28.4 pg (29.0-33.0); MEAN CORPUSCULAR HGB CONC 32.5 g/dl (32.0-37.0); MEAN CORPUSCULAR VOLUME 87.3 fl (82.0-101.0); MEAN PLATELET VOLUME 8.5 fl (7.4-10.4); MONOCYTE # 0.5 10^3/ul (0.3-0.9); MONOCYTES % 7.5 % (0.0-11.0); NEUTROPHILS % 72.8 % (39.0-77.0); PLATELET COUNT 380 10^3/UL (140-415); RED CELL DISTRIBUTION WIDTH 12.7 % (11.5-14.5); WHITE BLOOD COUNT 6.8 10^3/ul (4.8-10.8)
[2017-03-08] MEDS: VANCOMYCIN 1 GM in NS 250 ML IVPB SCH ×2 (07:45→17:04)
[2017-03-08 07:50] LABS: CALCIUM 8.9 mg/dl (8.4-10.2); CREATININE 0.76 mg/dl (0.61-1.24); POTASSIUM 3.9 mmol/L (3.5-5.1)
[2017-03-08] MEDS: INSULIN ASPART [NOVOLOG] 3 ML PEN SC SCH ×7 (07:50→20:14)
[2017-03-08] MEDS: INSULIN GLARGINE [LANtus] 3 ML PEN SC SCH (07:51)
[2017-03-08] MEDS: LORATADINE 10 MG TAB PO SCH (08:33)
[2017-03-08] MEDS: LISINOPRIL 10 MG TAB PO SCH (08:34)
[2017-03-08] MEDS: SOD CHLORIDE 0.9% 1,000 ML IV SCH (13:00)
--- NOTE | 2017-03-08 13:10 | CONS ---
Date/Time of Note Date/Time of Note DATE: 03/08/17 TIME: 13:09 Assessment/Plan Assessment/Plan Chief Complaint/Hosp Course SUBJECTIVE: Awake, looks comfortable, denies pain, no fevers ANTIMICROBIALS: 1. Vancomycin. 2. Levaquin. PHYSICAL EXAMINATION: GENERAL: Well-developed, middle-aged man who is alert, in no distress. HEENT: Head atraumatic, normocephalic. Sclerae anicteric. Buccal mucosa dry. NECK: Supple. CHEST: Rise symmetrical. Breath sounds clear. HEART: S1, S2. ABDOMEN: Soft, bowel sounds present. EXTREMITIES: RLE dsg intact ASSESSMENT: 1. Diabetic foot ulceration with fourth toe gangrene and cellulitis of the foot , s/p i&d/toe amputation==> no OM per patho. 2. Diabetes. 3. Hypertension. 4. SIRS PLAN: The patient remains stable. Continue abx, f/u podiatry rec-s, pending PICC ==> abx for 2 weeks, will change Levaquin to PO [facility] staff Problems: Consultation Date/Type/Reason Admit Date/Time Mar 03, 2017 at 01:49 Initial Consult Date 03/03/17 Type of Consultation: ID Exam/Review of Systems Vital Signs Vitals Vital Signs Date Time Temp Pulse Resp B/P Pulse Ox O2 Delivery O2 Flow Rate FiO2 03/08/17 12:03 98.0 88 18 109/65 97 Intake and Output 03/07/17 03/07/17 03/08/17 15:00 23:00 07:00 Intake Total 1600 ml 1510 ml Output Total 1800 ml 1600 ml Balance -200 ml -90 ml Results Result Diagram: 03/08/17 0647 03/08/17 0647 Results 24 hrs Laboratory Tests Test 03/07/17 17:05 03/07/17 20:10 03/08/17 06:47 03/08/17 07:47 Bedside Glucose 145 163 204 White Blood Count 6.8 Red Blood Count 3.70 L Hemoglobin 10.5 L Hematocrit 32.3 L Mean Corpuscular Volume 87.3 Mean Corpuscular Hemoglobin 28.4 L Mean Corpuscular Hemoglobin Concent 32.5 Red Cell Distribution Width 12.7 Platelet Count 380 Mean Platelet Volume 8.5 Neutrophils % 72.8 Lymphocytes % 16.8 Monocytes % 7.5 Eosinophils % 1.9 Basophils % 0.4 Nucleated Red Blood Cells % 0.0 Neutrophils # 5.0 Lymphocytes # 1.2 Monocytes # 0.5 Eosinophils # 0.1 Basophils # 0.0 Nucleated Red Blood Cells # 0.0 Sodium Level 141 Potassium Level 3.9 Chloride Level 106 Carbon Dioxide Level 29 Anion Gap 10 # Blood Urea Nitrogen 10 Creatinine 0.76 Glucose Level 184 Calcium Level 8.9 Test 03/08/17 11:58 Bedside Glucose 180 Medications Medications Current Medications Sodium Chloride (NS) 1,000 ml @ 80 mls/hr [id number] IV Last administered on 03/07 23:30; Admin Dose 80 MLS/HR; Start 03/03/17 at 08:00 Acetaminophen (Tylenol Tab) 650 mg Q6H PRN PO PAIN LEVEL 1-3 OR FEVER Last administered on 03/04/17 06:47; Admin Dose 650 MG; Start 03/03/17 at 08:00 Morphine Sulfate (morphine) 4 mg Q4H PRN IV PAIN LEVEL 7-10; Start 03/03/17 at 08:00 Atorvastatin Calcium (Lipitor) 20 mg QHS PO Last administered on 03/07/17 20: 11; Admin Dose 20 MG; Start 03/03/17 at 21:00 Lisinopril (Zestril) 10 mg DAILY PO Last administered on 03/08/17 08:34; Admin Dose 10 MG; Start 03/04/17 at 09:00 Loratadine (Claritin) 10 mg DAILY PO Last administered on 03/08/17 08:33; Admin Dose 10 MG; Start 03/04/17 at 09:00 Diagnostic Test (Pha) (Accu-Chek) 1 ea 02 XX Last administered on 03/06/17 02: 00; Admin Dose 1 EA; Start 03/04/17 at 02:00 Miscellaneous Information 1 ea NOTE XX ; Start 03/03/17 at 14:00 Glucose (Glutose) 15 gm Q15M PRN PO DECREASED GLUCOSE; Start 03/03/17 at 14:00 Glucose (Glutose) 22.5 gm Q15M PRN PO DECREASED GLUCOSE; Start 03/03/17 at 14: 00 Dextrose (D50w Syringe) 25 ml Q15M PRN IV DECREASED GLUCOSE; Start 03/03/17 at 14:00 Dextrose (D50w Syringe) 50 ml Q15M PRN IV DECREASED GLUCOSE; Start 03/03/17 at 14:00 Glucagon (Glucagen) 1 mg Q15M PRN IM DECREASED GLUCOSE; Start 03/03/17 at 14:00 Glucose 15 gm 15 gm Q15M PRN BUCCAL DECREASED GLUCOSE; Start 03/03/17 at 14:00 Levofloxacin/ Dextrose (Levaquin 500mg/ D5W 100 ml (Pmx)) 100 ml @ 100 mls/hr Q24H IVPB Last administered on 03/07/17 15:46; Admin Dose 100 MLS/HR; Start 03/03/17 at 15:00 Insulin Glargine 24 unit 24 unit DAILY@08 SC Last administered on 03/08/17 07 :51; Admin Dose 24 UNIT; Start 03/05/17 at 08:00 Vancomycin HCl (Vancocin) 250 ml @ 125 mls/hr Q8H IVPB Last administered on 07:45; Admin Dose 125 MLS/HR; Start 03/07/17 at 16:00 MIGUELINA RUDOLPH NP Mar 08, 2017 13:10
[2017-03-08] MEDS: LEVOFLOXACIN 500 MG TAB PO SCH (13:18)
--- NOTE | 2017-03-08 15:20 | PN ---
Date/Time of Note Date/Time of Note DATE: 03/08/17 TIME: 15:17 Assessment/Plan VTE Prophylaxis VTE Prophylaxis Intervention: LMWH Lines/Catheters IV [facility] (from [facility] Peripheral IV Urinary Cath still in place: No Assessment/Plan Chief Complaint/Hosp Course Subjective: No pain. No fever dyspnea or diarrhea. Left arm is pain and mildly swollen. Denies any injury. Right foot dressing has not been changed. Noticed some seepage yesterday with PT. Objective: Vital signs stable Physical exam No pallor Regular Clear Benign Right foot dressed C/D/I Assessment and plan 1. DFI/lwr ext cellulitis. S/p I&D. stable; Ok for dc from podiatry standpoint. Needs follow-up. Cont wound care; 2 wks IV antibiotics. Then po. PICC pending. 2. Chronic diabetes. Needs outpatient re-eval with primary assistance 3. Possible dietary nonadherence 4. Left upper extremity pain swelling rule out DVT. 5. Metabolic syndrome. Follow-up with podiatry for foot care Problems: Exam/Review of Systems Vital Signs Vitals Vital Signs Date Time Temp Pulse Resp B/P Pulse Ox O2 Delivery O2 Flow Rate FiO2 03/08/17 12:03 98.0 88 18 109/65 97 Intake and Output 03/07/17 03/07/17 03/08/17 15:00 23:00 07:00 Intake Total 1600 ml 1510 ml Output Total 1800 ml 1600 ml Balance -200 ml -90 ml Results Result Diagram: 03/08/17 0647 03/08/17 0647 Results 24 hrs Laboratory Tests Test 03/07/17 17:05 03/07/17 20:10 03/08/17 06:47 03/08/17 07:47 Bedside Glucose 145 163 204 White Blood Count 6.8 Red Blood Count 3.70 L Hemoglobin 10.5 L Hematocrit 32.3 L Mean Corpuscular Volume 87.3 Mean Corpuscular Hemoglobin 28.4 L Mean Corpuscular Hemoglobin Concent 32.5 Red Cell Distribution Width 12.7 Platelet Count 380 Mean Platelet Volume 8.5 Neutrophils % 72.8 Lymphocytes % 16.8 Monocytes % 7.5 Eosinophils % 1.9 Basophils % 0.4 Nucleated Red Blood Cells % 0.0 Neutrophils # 5.0 Lymphocytes # 1.2 Monocytes # 0.5 Eosinophils # 0.1 Basophils # 0.0 Nucleated Red Blood Cells # 0.0 Sodium Level 141 Potassium Level 3.9 Chloride Level 106 Carbon Dioxide Level 29 Anion Gap 10 # Blood Urea Nitrogen 10 Creatinine 0.76 Glucose Level 184 Calcium Level 8.9 Test 03/08/17 11:58 Bedside Glucose 180 Medications Medications Current Medications Sodium Chloride (NS) 1,000 ml @ 80 mls/hr [id number] IV Last administered on 03/07 23:30; Admin Dose 80 MLS/HR; Start 03/03/17 at 08:00 Acetaminophen (Tylenol Tab) 650 mg Q6H PRN PO PAIN LEVEL 1-3 OR FEVER Last administered on 03/04/17 06:47; Admin Dose 650 MG; Start 03/03/17 at 08:00 Morphine Sulfate (morphine) 4 mg Q4H PRN IV PAIN LEVEL 7-10; Start 03/03/17 at 08:00 Atorvastatin Calcium (Lipitor) 20 mg QHS PO Last administered on 03/07/17 20: 11; Admin Dose 20 MG; Start 03/03/17 at 21:00 Lisinopril (Zestril) 10 mg DAILY PO Last administered on 03/08/17 08:34; Admin Dose 10 MG; Start 03/04/17 at 09:00 Loratadine (Claritin) 10 mg DAILY PO Last administered on 03/08/17 08:33; Admin Dose 10 MG; Start 03/04/17 at 09:00 Diagnostic Test (Pha) (Accu-Chek) 1 ea 02 XX Last administered on 03/06/17 02: 00; Admin Dose 1 EA; Start 03/04/17 at 02:00 Miscellaneous Information 1 ea NOTE XX ; Start 03/03/17 at 14:00 Glucose (Glutose) 15 gm Q15M PRN PO DECREASED GLUCOSE; Start 03/03/17 at 14:00 Glucose (Glutose) 22.5 gm Q15M PRN PO DECREASED GLUCOSE; Start 03/03/17 at 14: 00 Dextrose (D50w Syringe) 25 ml Q15M PRN IV DECREASED GLUCOSE; Start 03/03/17 at 14:00 Dextrose (D50w Syringe) 50 ml Q15M PRN IV DECREASED GLUCOSE; Start 03/03/17 at 14:00 Glucagon (Glucagen) 1 mg Q15M PRN IM DECREASED GLUCOSE; Start 03/03/17 at 14:00 Glucose (Glutose) 15 gm Q15M PRN BUCCAL DECREASED GLUCOSE; Start 03/03/17 at 14 :00 Insulin Glargine 24 unit 24 unit DAILY@08 SC Last administered on 03/08/17 07 :51; Admin Dose 24 UNIT; Start 03/05/17 at 08:00 Vancomycin HCl (Vancocin) 250 ml @ 125 mls/hr Q8H IVPB Last administered on 07:45; Admin Dose 125 MLS/HR; Start 03/07/17 at 16:00 Levofloxacin (Levaquin) 500 mg DAILY@06 PO Last administered on 03/08/17 13: 18; Admin Dose 500 MG; Start 03/08/17 at 13:30 Miscellaneous Information (*Rx Drug Level Order Reminder*) VANCO TROUGH @ 2, 300 ON ... ONCE ONCE XX ; Start 03/08/17 at 23:00; Stop 03/08/17 at 23:01 OSMANI SILVA MD Mar 08, 2017 15:20
[2017-03-08] MEDS ORDERED: LIDOCAINE 1% (MPF) 5 ML VIAL SC ONE (15:30)
--- NOTE | 2017-03-08 16:57 | RADRPT ---
PROCEDURE: US upper extremity Venous. CLINICAL INDICATION: Left arm edema TECHNIQUE: Multiple sonographic images of the left upper extremity venous system was obtained util izing grayscale, color-flow, compressive sonography and doppler imaging with augmentation. The imag es were reviewed on a PACS workstation. COMPARISON: None. FINDINGS: The left cephalic vein in the upper arm and forearm is not compressible, consistent with thrombosis. There is normal compressibility and flow within the left internal jugular vein, subclavian vein, axi llary vein, brachial, basilic, , radial and ulnar veins. RPTAT: AA IMPRESSION: Thrombosis of the left cephalic vein. Otherwise unremarkable. .Barrington Sanchez MD, MD Date Time Electronically viewed and signed by .Barrington Sanchez MD, on 03/08/2017 16:56 .S/
[2017-03-08] MEDS: ATORVASTATIN 20 MG TAB PO SCH (20:10)
[2017-03-08] MEDS: LACTOBACILLUS RHAMNOSUS CAP PO SCH (20:10)
[2017-03-08] MEDS: ENOXAPARIN 80 MG/0.8 ML SYG SC SCH (20:12)
[2017-03-09] VITALS (12 sets, daily range): BP systolic 102–129; BP diastolic 56–70; PULSE 60–82; RESP 18–20
[2017-03-09] MEDS: VANCOMYCIN 1 GM in NS 250 ML IVPB SCH ×4 (00:48→23:49)
[2017-03-09] MEDS: ACCU-CHEK XX SCH (01:04)
[2017-03-09] MEDS: LEVOFLOXACIN 500 MG TAB PO SCH (05:11)
[2017-03-09] MEDS: INSULIN ASPART [NOVOLOG] 3 ML PEN SC SCH ×7 (07:54→20:22)
[2017-03-09] MEDS: INSULIN GLARGINE [LANtus] 3 ML PEN SC SCH (07:57)
[2017-03-09 08:40] LABS: BASOPHILS % 0.3 % (0.0-2.0); EOSINOPHILS # 0.1 10^3/ul (0.0-0.5); EOSINOPHILS % 1.6 % (0.0-7.0); HEMATOCRIT 33.8 % (42.0-52.0); LYMPHOCYTES # 1.1 10^3/ul (0.8-2.9); LYMPHOCYTES % 16.4 % (15.0-51.0); MEAN CORPUSCULAR HEMOGLOBIN 28.4 pg (29.0-33.0); MEAN CORPUSCULAR HGB CONC 32.5 g/dl (32.0-37.0); MEAN CORPUSCULAR VOLUME 87.1 fl (82.0-101.0); MEAN PLATELET VOLUME 8.8 fl (7.4-10.4); MONOCYTE # 0.4 10^3/ul (0.3-0.9); MONOCYTES % 6.8 % (0.0-11.0); NEUTROPHIL # 4.8 10^3/ul (1.6-7.5); NEUTROPHILS % 74.4 % (39.0-77.0); PLATELET COUNT 432 10^3/UL (140-415); RED BLOOD COUNT 3.88 10^6/ul (4.70-6.10); WHITE BLOOD COUNT 6.5 10^3/ul (4.8-10.8)
[2017-03-09] MEDS: LORATADINE 10 MG TAB PO SCH (08:46)
[2017-03-09] MEDS: LACTOBACILLUS RHAMNOSUS CAP PO SCH ×2 (08:46→20:23)
[2017-03-09] MEDS: LISINOPRIL 10 MG TAB PO SCH (08:47)
[2017-03-09] MEDS: ENOXAPARIN 80 MG/0.8 ML SYG SC SCH ×2 (08:51→20:23)
[2017-03-09 08:55] LABS: INR 1.05; PROTIME 13.7 Sec (12.2-14.2); PT RATIO 1.1
[2017-03-09 08:56] LABS: MAGNESIUM 1.8 mg/dl (1.7-2.5); PHOSPHORUS 3.9 mg/dl (2.5-4.9)
[2017-03-09 09:48] LABS: CREATININE 0.77 mg/dl (0.61-1.24); POTASSIUM 4.4 mmol/L (3.5-5.1)
--- NOTE | 2017-03-09 12:42 | PN ---
Date/Time of Note Date/Time of Note DATE: 03/09/17 TIME: 12:41 Assessment/Plan VTE Prophylaxis VTE Prophylaxis Intervention: LMWH Lines/Catheters IV Catheter Type (from [facility]): Peripheral IV Urinary Cath still in place: No Assessment/Plan Chief Complaint/Hosp Course 1. Right fourth toe gangrene with right foot abscess with cellulitis. Status post right fourth gangrenous toe amputation along with incision and drainage of the right foot abscess on 03/04/2017. Continue antimicrobials as per infectious diseases. Continue pain control. 2. Type 2 diabetes mellitus. Uncontrolled. Hemoglobin A1c 11.7. Continue sliding scale insulin along with pre-meal insulin basal insulin. Adjust insulin dosing to obtain optimal blood sugar control. 3. Essential hypertension. Continue antihypertensives. Blood pressure fairly well controlled. 4. Dyslipidemia. Continue statins. 5. Thrombosis of the left cephalic vein. Continue therapeutic anticoagulation. 6. Normocytic anemia. Monitor H&H closely. Will obtain an iron panel. 7. Fluids, electrolytes, and nutrition. Carbohydrate controlled diet. 8. DVT prophylaxis. On therapeutic Lovenox. 9. Plan. Continue antimicrobials as per infectious diseases. Obtain PICC line for long-term IV antibiotic therapy. Adjust insulin to obtain optimal blood sugar control. Case discussed with Dr. Emerson. Problems: Subjective 24 Hr Interval Summary Free Text/Dictation Denies any pain. The blood sugars running high. Exam/Review of Systems Vital Signs Vitals Vital Signs Date Time Temp Pulse Resp B/P Pulse Ox O2 Delivery O2 Flow Rate FiO2 03/09/17 12:25 75 03/09/17 11:39 98.5 18 107/57 97 Intake and Output 03/08/17 03/08/17 03/09/17 15:00 23:00 07:00 Intake Total 250 ml 1500 ml 400 ml Output Total 1200 ml 1000 ml Balance 250 ml 300 ml -600 ml Exam General: Adequately build 46 year-old male lying in bed in no apparent distress. HEENT: Normocephalic, atraumatic. Eyes: Anicteric sclerae, conjunctivae clear. ENT: Nasal septum midline, oral mucosa moist. Neck supple, no JVD noticed. Respiratory: Bilaterally clear breath sounds. No use of accessory muscles of respiration. No adventitious breath sounds. Cardiovascular: S1, S2 heard. No murmurs or gallops. Abdomen: Soft, nontender, and nondistended. Bowel sounds positive in all 4 quadrants. Genitourinary: Deferred. Extremities: No cyanosis. Peripheral pulses palpable. Right foot surgical dressing. Neurologic: Cranial nerves II through XII grossly intact. The patient is awake, alert, and oriented. Skin: Normal skin turgor. No skin rashes. Results Result Diagram: 03/09/1717 03/09/17 0717 Results 24 hrs Laboratory Tests Test 03/08/17 17:11 03/08/17 20:01 03/08/17 23:00 03/09/17 07:17 Bedside Glucose 156 158 Vancomycin Level Trough 12.3 White Blood Count 6.5 Red Blood Count 3.88 L Hemoglobin 11.0 L Hematocrit 33.8 L Mean Corpuscular Volume 87.1 Mean Corpuscular Hemoglobin 28.4 L Mean Corpuscular Hemoglobin Concent 32.5 Red Cell Distribution Width 13.0 Platelet Count 432 H Mean Platelet Volume 8.8 Neutrophils % 74.4 Lymphocytes % 16.4 Monocytes % 6.8 Eosinophils % 1.6 Basophils % 0.3 Nucleated Red Blood Cells % 0.0 Neutrophils # 4.8 Lymphocytes # 1.1 Monocytes # 0.4 Eosinophils # 0.1 Basophils # 0.0 Nucleated Red Blood Cells # 0.0 Prothrombin Time 13.7 Prothrombin Time Ratio 1.1 INR International Normalized Ratio 1.05 Sodium Level 140 Potassium Level 4.4 Chloride Level 103 Carbon Dioxide Level 26 Anion Gap 15 Blood Urea Nitrogen 13 Creatinine 0.77 Glucose Level 264 H Calcium Level 9.0 Phosphorus Level 3.9 Magnesium Level 1.8 Test 03/09/17 07:52 03/09/17 11:46 Bedside Glucose 245 H 245 H Medications Medications Current Medications Acetaminophen (Tylenol Tab) 650 mg Q6H PRN PO PAIN LEVEL 1-3 OR FEVER Last administered on 03/04/17 06:47; Admin Dose 650 MG; Start 03/03/17 at 08:00 Morphine Sulfate (morphine) 4 mg Q4H PRN IV PAIN LEVEL 7-10; Start 03/03/17 at 08:00 Atorvastatin Calcium (Lipitor) 20 mg QHS PO Last administered on 03/08/17 20: 10; Admin Dose 20 MG; Start 03/03/17 at 21:00 Lisinopril (Zestril) 10 mg DAILY PO Last administered on 03/09/17 08:47; Admin Dose 10 MG; Start 03/04/17 at 09:00 Loratadine (Claritin) 10 mg DAILY PO Last administered on 03/09/17 08:46; Admin Dose 10 MG; Start 03/04/17 at 09:00 Diagnostic Test (Pha) (Accu-Chek) 1 ea 02 XX Last administered on 03/06/17 02: 00; Admin Dose 1 EA; Start 03/04/17 at 02:00 Miscellaneous Information 1 ea NOTE XX ; Start 03/03/17 at 14:00 Glucose (Glutose) 15 gm Q15M PRN PO DECREASED GLUCOSE; Start 03/03/17 at 14:00 Glucose (Glutose) 22.5 gm Q15M PRN PO DECREASED GLUCOSE; Start 03/03/17 at 14: 00 Dextrose (D50w Syringe) 25 ml Q15M PRN IV DECREASED GLUCOSE; Start 03/03/17 at 14:00 Dextrose (D50w Syringe) 50 ml Q15M PRN IV DECREASED GLUCOSE; Start 03/03/17 at 14:00 Glucagon (Glucagen) 1 mg Q15M PRN IM DECREASED GLUCOSE; Start 03/03/17 at 14:00 Glucose (Glutose) 15 gm Q15M PRN BUCCAL DECREASED GLUCOSE; Start 03/03/17 at 14 :00 Insulin Glargine 24 unit 24 unit DAILY@08 SC Last administered on 03/09/17 07 :57; Admin Dose 24 UNIT; Start 03/05/17 at 08:00 Vancomycin HCl (Vancocin) 250 ml @ 125 mls/hr Q8H IVPB Last administered on 07:44; Admin Dose 125 MLS/HR; Start 03/07/17 at 16:00 Levofloxacin (Levaquin) 500 mg DAILY@06 PO Last administered on 03/09/17 05: 11; Admin Dose 500 MG; Start 03/08/17 at 13:30 Lactobacillus Acidophilus/ Rhamnosus (Culturelle) 1 cap BID PO Last administered on 03/09/17 08:46; Admin Dose 1 CAP; Start 03/08/17 at 21:00 Enoxaparin Sodium (Lovenox) 80 mg Q12 SC Last administered on 03/09/17 08:51 ; Admin Dose 80 MG; Start 03/08/17 at 21:00 MODESTA URIAS NP 11, 2017 12:42
--- NOTE | 2017-03-09 17:10 | CONS ---
Date/Time of Note Date/Time of Note DATE: 03/09/17 TIME: 17:10 Consult Date/Type/Reason Admit Date/Time Mar 03, 2017 at 01:49 Initial Consult Date 03/03/17 Type of Consultation: ID Objective Vital Signs Date Time Temp Pulse Resp B/P Pulse Ox O2 Delivery O2 Flow Rate FiO2 03/09/17 16:06 73 03/09/17 16:02 98.5 18 102/56 97 Intake and Output 03/08/17 03/08/17 03/09/17 14:59 22:59 06:59 Intake Total 250 ml 1500 ml 400 ml Output Total 1200 ml 1000 ml Balance 250 ml 300 ml -600 ml Results/Medications Result Diagram: 03/09/1771603/09/17716 Results 24 hrs Laboratory Tests Test 03/08/17 17:11 03/08/17 20:01 03/08/17 23:00 03/09/17 07:17 Bedside Glucose 156 158 Vancomycin Level Trough 12.3 White Blood Count 6.5 Red Blood Count 3.88 L Hemoglobin 11.0 L Hematocrit 33.8 L Mean Corpuscular Volume 87.1 Mean Corpuscular Hemoglobin 28.4 L Mean Corpuscular Hemoglobin Concent 32.5 Red Cell Distribution Width 13.0 Platelet Count 432 H Mean Platelet Volume 8.8 Neutrophils % 74.4 Lymphocytes % 16.4 Monocytes % 6.8 Eosinophils % 1.6 Basophils % 0.3 Nucleated Red Blood Cells % 0.0 Neutrophils # 4.8 Lymphocytes # 1.1 Monocytes # 0.4 Eosinophils # 0.1 Basophils # 0.0 Nucleated Red Blood Cells # 0.0 Prothrombin Time 13.7 Prothrombin Time Ratio 1.1 INR International Normalized Ratio 1.05 Sodium Level 140 Potassium Level 4.4 Chloride Level 103 Carbon Dioxide Level 26 Anion Gap 15 Blood Urea Nitrogen 13 Creatinine 0.77 Glucose Level 264 H Calcium Level 9.0 Phosphorus Level 3.9 Magnesium Level 1.8 Test 03/09/17 07:52 03/09/17 11:46 Bedside Glucose 245 H 245 H Medications Current Medications Acetaminophen (Tylenol Tab) 650 mg Q6H PRN PO PAIN LEVEL 1-3 OR FEVER Last administered on 03/04/17t 06:47; Admin Dose 650 MG; Start 03/03/17 at 08:00 Morphine Sulfate (morphine) 4 mg Q4H PRN IV PAIN LEVEL 7-10; Start 03/03/17 at 08:00 Atorvastatin Calcium (Lipitor) 20 mg QHS PO Last administered on 03/08/17 20: 10; Admin Dose 20 MG; Start 03/03/17 at 21:00 Lisinopril (Zestril) 10 mg DAILY PO Last administered on 03/09/17 08:47; Admin Dose 10 MG; Start 03/04/17 at 09:00 Loratadine (Claritin) 10 mg DAILY PO Last administered on 03/09/17 08:46; Admin Dose 10 MG; Start 03/04/17 at 09:00 Diagnostic Test (Pha) (Accu-Chek) 1 ea 02 XX Last administered on 03/06/17 02: 00; Admin Dose 1 EA; Start 03/04/17 at 02:00 Miscellaneous Information 1 ea NOTE XX ; Start 03/03/17 at 14:00 Glucose (Glutose) 15 gm Q15M PRN PO DECREASED GLUCOSE; Start 03/03/17 at 14:00 Glucose (Glutose) 22.5 gm Q15M PRN PO DECREASED GLUCOSE; Start 03/03/17 at 14: 00 Dextrose (D50w Syringe) 25 ml Q15M PRN IV DECREASED GLUCOSE; Start 03/03/17 at 14:00 Dextrose (D50w Syringe) 50 ml Q15M PRN IV DECREASED GLUCOSE; Start 03/03/17 at 14:00 Glucagon (Glucagen) 1 mg Q15M PRN IM DECREASED GLUCOSE; Start 03/03/17 at 14:00 Glucose 15 gm 15 gm Q15M PRN BUCCAL DECREASED GLUCOSE; Start 03/03/17 at 14:00 Vancomycin HCl (Vancocin) 250 ml @ 125 mls/hr Q8H IVPB Last administered on 16:34; Admin Dose 125 MLS/HR; Start 03/07/17 at 16:00 Levofloxacin (Levaquin) 500 mg DAILY@06 PO Last administered on 03/09/17 05: 11; Admin Dose 500 MG; Start 03/08/17 at 13:30 Lactobacillus Acidophilus/ Rhamnosus (Culturelle) 1 cap BID PO Last administered on 03/09/17 08:46; Admin Dose 1 CAP; Start 03/08/17 at 21:00 Enoxaparin Sodium (Lovenox) 80 mg Q12 SC Last administered on 03/09/17t 08:51 ; Admin Dose 80 MG; Start 03/08/17 at 21:00 Insulin Glargine (Lantus) 26 unit DAILY@08 SC ; Start 03/10/17 at 08:00 Assessment/Plan Chief Complaint/Hosp Course SUBJECTIVE: Awake, looks comfortable, denies pain, no fevers ANTIMICROBIALS: 1. Vancomycin. 2. Levaquin. PHYSICAL EXAMINATION: GENERAL: Well-developed, middle-aged man who is alert, in no distress. HEENT: Head atraumatic, normocephalic. Sclerae anicteric. Buccal mucosa dry. NECK: Supple. CHEST: Rise symmetrical. Breath sounds clear. HEART: S1, S2. ABDOMEN: Soft, bowel sounds present. EXTREMITIES: RLE dsg intact ASSESSMENT: 1. Diabetic foot ulceration with fourth toe gangrene and cellulitis of the foot , s/p i&d/toe amputation==> no OM per patho. 2. Diabetes. 3. Hypertension. 4. SIRS PLAN: The patient remains stable. Continue abx for 7 more days, f/u podiatry rec-s, pending PICC [facility] staff Problems: MIGUELINA RUDOLPH NP Mar 09, 2017 17:10
[2017-03-09] MEDS: ATORVASTATIN 20 MG TAB PO SCH (20:23)
[2017-03-10] VITALS (10 sets, daily range): BP systolic 98–119; BP diastolic 55–68; PULSE 66–99; RESP 18–20
[2017-03-10] MEDS: ACCU-CHEK XX SCH (02:00)
[2017-03-10] MEDS: LEVOFLOXACIN 500 MG TAB PO SCH (05:55)
[2017-03-10 06:33] LABS: BASOPHILS % 0.3 % (0.0-2.0); EOSINOPHILS # 0.1 10^3/ul (0.0-0.5); EOSINOPHILS % 1.6 % (0.0-7.0); HEMATOCRIT 34.7 % (42.0-52.0); HEMOGLOBIN 11.3 g/dl (14.0-18.0); LYMPHOCYTES # 1.2 10^3/ul (0.8-2.9); LYMPHOCYTES % 18.9 % (15.0-51.0); MEAN CORPUSCULAR HEMOGLOBIN 28.5 pg (29.0-33.0); MEAN CORPUSCULAR HGB CONC 32.6 g/dl (32.0-37.0); MEAN CORPUSCULAR VOLUME 87.6 fl (82.0-101.0); MEAN PLATELET VOLUME 8.5 fl (7.4-10.4); MONOCYTE # 0.4 10^3/ul (0.3-0.9); MONOCYTES % 6.1 % (0.0-11.0); NEUTROPHIL # 4.7 10^3/ul (1.6-7.5); NEUTROPHILS % 72.8 % (39.0-77.0); PLATELET COUNT 457 10^3/UL (140-415); RED BLOOD COUNT 3.96 10^6/ul (4.70-6.10); RED CELL DISTRIBUTION WIDTH 12.7 % (11.5-14.5); WHITE BLOOD COUNT 6.4 10^3/ul (4.8-10.8)
[2017-03-10 07:03] LABS: IRON 31 ug/dl (35-150)
[2017-03-10 07:13] LABS: TOTAL IRON BINDING CAPACITY 242 ug/dl (241-421)
[2017-03-10 07:24] LABS: MAGNESIUM 1.8 mg/dl (1.7-2.5); PHOSPHORUS 4.2 mg/dl (2.5-4.9)
[2017-03-10] MEDS: VANCOMYCIN 1 GM in NS 250 ML IVPB SCH ×2 (07:35→15:35)
[2017-03-10] MEDS: INSULIN ASPART [NOVOLOG] 3 ML PEN SC SCH ×4 (07:39→11:41)
[2017-03-10 07:41] LABS: CREATININE 0.78 mg/dl (0.61-1.24)
[2017-03-10] MEDS ORDERED: INSULIN GLARGINE [LANtus] 3 ML PEN SC SCH (08:00)
[2017-03-10] MEDS: ENOXAPARIN 80 MG/0.8 ML SYG SC SCH (08:19)
[2017-03-10] MEDS: LORATADINE 10 MG TAB PO SCH (08:19)
[2017-03-10] MEDS: LACTOBACILLUS RHAMNOSUS CAP PO SCH (08:19)
[2017-03-10] MEDS: LISINOPRIL 10 MG TAB PO SCH (08:20)
--- NOTE | 2017-03-10 10:41 | RADRPT ---
PROCEDURE: Ultrasound guidance for placement of needle in right upper extremity vein. CLINICAL INDICATION: Venous access. TECHNIQUE: Limited sonography of the right upper extremity was performed. Ultrasound images were recorded and stored in the patient's medical record. COMPARISON: None. FINDINGS: The ultrasound images demonstrate a patent right upper extremity vein. The PICC line was inserted b y the PICC line nurse. IMPRESSION: 1. Ultrasound guidance for a needle placement in a right upper extremity vein. 2. The visualized right upper extremity vein is patent. RPTAT: QQ .Zeke Rodney MD, MD Date Time Electronically viewed and signed by .Zeke Rodney MD, MD on 03/10/2017 10:40 .R/
--- NOTE | 2017-03-10 11:01 | RADRPT ---
PROCEDURE: XR Chest. CLINICAL INDICATION: Line placement. TECHNIQUE: Single frontal view of the chest was obtained COMPARISON: None FINDINGS: Right-sided PICC tip overlying the superior cavoatrial junction. The heart and mediastinum are within normal limits. The lungs are clear. There is no pleural effusion or pneumothorax. The osseous structures are unremarkable. IMPRESSION: 1. Right-sided PICC tip overlying the superior cavoatrial junction. No evidence of pneumothorax. RPTAT:AAJJ Physician Vasiliy Date Time Electronically viewed and signed by Physician Vasiliy on 03/10/2017 11:01 QL/
--- NOTE | 2017-03-10 11:54 | PDOCDIS ---
Discharge Instructions DIAGNOSIS Discharge Diagnosis 1. Right fourth toe gangrene with right foot abscess with cellulitis. 2. Type 2 diabetes mellitus. Uncontrolled. Hemoglobin A1c 11.7. 3. Essential hypertension. 4. Dyslipidemia. 5. Thrombosis of the left cephalic vein. 6. Normocytic anemia. HOME CARE INSTRUCTIONS: Special Diet: diabetic diet FOLLOW UP/APPOINTMENTS Follow-up Plan 1. Follow up with Dr. Milton Zamudio at the [facility] ([facility]) at [facility] within 2 weeks 2. Follow-up with your primary care provider within a week DARREN HOUSE Mar 10, 2017 11:54
--- NOTE | 2017-03-10 11:55 | PN ---
Date/Time of Note Date/Time of Note DATE: 03/10/17 TIME: 11:54 Assessment/Plan VTE Prophylaxis VTE Prophylaxis Intervention: LMWH Lines/Catheters IV [facility] (from [facility]): PICC Line Urinary Cath still in place: No Assessment/Plan Chief Complaint/Hosp Course Assessment and plan 1. Right foot fourth toe gangrene. Podiatry is following. ID consult is also following. Continue antibiotics. s/p amputation of right foot fourth toe. continue with wound care. 2. Diabetes. continue insulin regimen. Adjust as needed. 3. dyslipidemia. Continue on statin 4. htn. Continue antihypertensives and adjust as needed. Disposition plan: continue abx. PICC line to be placed. Anticipate discharge within the next 24 hours once home health services set up for antibiotic treatment Discussed with Dr. Emerson Problems: Subjective 24 Hr Interval Summary Free Text/Dictation Comfortable at present. No signs of distress Exam/Review of Systems Vital Signs Vitals Vital Signs Date Time Temp Pulse Resp B/P Pulse Ox O2 Delivery O2 Flow Rate FiO2 03/10/17 08:00 71 03/10/17 07:58 98.6 18 108/55 98 Intake and Output 03/09/17 03/09/17 03/10/17 14:59 22:59 06:59 Intake Total 250 ml 1270 ml 430 ml Output Total 2550 ml 600 ml Balance 250 ml -1280 ml -170 ml Exam Constitutional: alert, oriented Psych: nl mood/affect Head: normocephalic Eyes: nl conjunctiva ENMT: nl external ears & nose Respiratory: clear to auscultation, normal air movement Cardiovascular: regular rate and rhythm Gastrointestinal: non-tender, soft Musculoskeletal: other (right fourth toe gangrene s/p amputation ) dressing in place Results Result Diagram: 03/10/17 0530 03/10/17 0550 Results 24 hrs Laboratory Tests Test 03/09/17 17:26 03/09/17 20:20 03/10/17 05:30 03/10/17 05:50 Bedside Glucose 127 159 White Blood Count 6.4 Red Blood Count 3.96 L Hemoglobin 11.3 L Hematocrit 34.7 L Mean Corpuscular Volume 87.6 Mean Corpuscular Hemoglobin 28.5 L Mean Corpuscular Hemoglobin Concent 32.6 Red Cell Distribution Width 12.7 Platelet Count 457 H Mean Platelet Volume 8.5 Neutrophils % 72.8 Lymphocytes % 18.9 Monocytes % 6.1 Eosinophils % 1.6 Basophils % 0.3 Nucleated Red Blood Cells % 0.0 Neutrophils # 4.7 Lymphocytes # 1.2 Monocytes # 0.4 Eosinophils # 0.1 Basophils # 0.0 Nucleated Red Blood Cells # 0.0 Sodium Level 140 Potassium Level 4.0 Chloride Level 105 Carbon Dioxide Level 28 Anion Gap 11 Blood Urea Nitrogen 14 Creatinine 0.78 Glucose Level 200 Calcium Level 9.0 Phosphorus Level 4.2 Magnesium Level 1.8 Iron Level 31 L Total Iron Binding Capacity 242 Percent Iron Saturation 13 L Ferritin 287.0 Test 03/10/17 07:37 03/10/17 11:39 Bedside Glucose 195 161 Medications Medications Current Medications Acetaminophen (Tylenol Tab) 650 mg Q6H PRN PO PAIN LEVEL 1-3 OR FEVER Last administered on 03/04/17 06:47; Admin Dose 650 MG; Start 03/03/17 at 08:00 Morphine Sulfate (morphine) 4 mg Q4H PRN IV PAIN LEVEL 7-10; Start 03/03/17 at 08:00 Atorvastatin Calcium (Lipitor) 20 mg QHS PO Last administered on 03/09/17 20: 23; Admin Dose 20 MG; Start 03/03/17 at 21:00 Lisinopril (Zestril) 10 mg DAILY PO Last administered on 03/10/17 08:20; Admin Dose 10 MG; Start 03/04/17 at 09:00 Loratadine (Claritin) 10 mg DAILY PO Last administered on 03/10/17 08:19; Admin Dose 10 MG; Start 03/04/17 at 09:00 Diagnostic Test (Pha) (Accu-Chek) 1 ea 02 XX Last administered on 03/06/17 02: 00; Admin Dose 1 EA; Start 03/04/17 at 02:00 Miscellaneous Information 1 ea NOTE XX ; Start 03/03/17 at 14:00 Glucose (Glutose) 15 gm Q15M PRN PO DECREASED GLUCOSE; Start 03/03/17 at 14:00 Glucose (Glutose) 22.5 gm Q15M PRN PO DECREASED GLUCOSE; Start 03/03/17 at 14: 00 Dextrose (D50w Syringe) 25 ml Q15M PRN IV DECREASED GLUCOSE; Start 03/03/17 at 14:00 Dextrose (D50w Syringe) 50 ml Q15M PRN IV DECREASED GLUCOSE; Start 03/03/17 at 14:00 Glucagon (Glucagen) 1 mg Q15M PRN IM DECREASED GLUCOSE; Start 03/03/17 at 14:00 Glucose 15 gm 15 gm Q15M PRN BUCCAL DECREASED GLUCOSE; Start 03/03/17 at 14:00 Vancomycin HCl (Vancocin) 250 ml @ 125 mls/hr Q8H IVPB Last administered on 07:35; Admin Dose 125 MLS/HR; Start 03/07/17 at 16:00 Levofloxacin (Levaquin) 500 mg DAILY@06 PO Last administered on 03/10/17 05: 55; Admin Dose 500 MG; Start 03/08/17 at 13:30 Lactobacillus Acidophilus/ Rhamnosus (Culturelle) 1 cap BID PO Last administered on 03/10/17 08:19; Admin Dose 1 CAP; Start 03/08/17 at 21:00 Enoxaparin Sodium (Lovenox) 80 mg Q12 SC Last administered on 03/10/17 08:19 ; Admin Dose 80 MG; Start 03/08/17 at 21:00 Insulin Glargine (Lantus) 26 unit DAILY@08 SC Last administered on 03/10/17 07:41; Admin Dose 26 UNIT; Start 03/10/17 at 08:00 IV Flush (NS 10 ml) 10 ml PRN PRN IV IV PROTOCOL; Start 03/10/17 at 11:00 DARREN HOUSE Mar 10, 2017 11:55
[2017-03-10] MEDS ORDERED: NOVO3I SC (14:57)
[2017-03-10] MEDS ORDERED: LEVO500T72 PO (14:57)
[2017-03-10] MEDS ORDERED: Vancomycin Iv Per Pharmacy XX (14:57)
[2017-03-10] MEDS ORDERED: LACT1CAP28 PO (14:57)
[2017-03-10] MEDS ORDERED: LANT3I SC (14:57)
[2017-03-10] MEDS ORDERED: COLLAGENASE 30 GM TUBE TOP SCH (17:30)
--- NOTE | 2017-03-10 17:51 | CONS ---
Date/Time of Note Date/Time of Note DATE: 03/10/17 TIME: 17:45 Consultation Date/Type/Reason Admit Date/Time Mar 03, 2017 at 01:49 Initial Consult Date SUBJECTIVE: 46 y/o male being treated for Rt 4th toe gangreen S/P amputation. PICC line placed today. Awake, looks comfortable, denies pain, no fevers. VS: 98/55 P:62 R:18 SO2:97% T:98.1 LABS: WBC-6.4 H&H:11.3/34.7 BMP- WNL Right fourth toe, amputation Pathology: -- Gangrenous necrosis of skin and subcutaneous tissue, extensive, extending to the proximal resection margin. -- Section of phalangeal bone show no evidence of acute or chronic osteomyelitis. -- There is no evidence of malignancy. ANTIMICROBIALS: 1. Vancomycin. 2. Levaquin PO PHYSICAL EXAMINATION: GENERAL: Well-developed, middle-aged man who is alert, in no distress. HEENT: Head atraumatic, normocephalic. Sclerae anicteric. Buccal mucosa dry. NECK: Supple. CHEST: Rise symmetrical. Breath sounds clear. HEART: S1, S2. ABDOMEN: Soft, bowel sounds present. EXTREMITIES: RLE dsg intact ASSESSMENT: 1. Diabetic foot ulceration with fourth toe gangrene and cellulitis of the foot , s/p i&d/toe amputation==> no OM per patho. 2. Diabetes. 3. Hypertension. 4. SIRS PLAN: The patient remains stable. Continue abx. Pain managmenT and wound care. F/u podiatry rec-s. Type of Consultation: ID Exam/Review of Systems Vital Signs Vitals Vital Signs Date Time Temp Pulse Resp B/P Pulse Ox O2 Delivery O2 Flow Rate FiO2 03/10/17 16:26 98.0 81 18 119/65 94 Intake and Output 03/09/17 03/09/17 03/10/17 14:59 22:59 06:59 Intake Total 250 ml 1270 ml 430 ml Output Total 2550 ml 600 ml Balance 250 ml -1280 ml -170 ml Results Result Diagram: 03/10/17 0530 03/10/17 0550 Results 24 hrs Laboratory Tests Test 03/09/17 20:20 03/10/17 05:30 03/10/17 05:50 03/10/17 07:37 Bedside Glucose 159 195 White Blood Count 6.4 Red Blood Count 3.96 L Hemoglobin 11.3 L Hematocrit 34.7 L Mean Corpuscular Volume 87.6 Mean Corpuscular Hemoglobin 28.5 L Mean Corpuscular Hemoglobin Concent 32.6 Red Cell Distribution Width 12.7 Platelet Count 457 H Mean Platelet Volume 8.5 Neutrophils % 72.8 Lymphocytes % 18.9 Monocytes % 6.1 Eosinophils % 1.6 Basophils % 0.3 Nucleated Red Blood Cells % 0.0 Neutrophils # 4.7 Lymphocytes # 1.2 Monocytes # 0.4 Eosinophils # 0.1 Basophils # 0.0 Nucleated Red Blood Cells # 0.0 Sodium Level 140 Potassium Level 4.0 Chloride Level 105 Carbon Dioxide Level 28 Anion Gap 11 Blood Urea Nitrogen 14 Creatinine 0.78 Glucose Level 200 Calcium Level 9.0 Phosphorus Level 4.2 Magnesium Level 1.8 Iron Level 31 L Total Iron Binding Capacity 242 Percent Iron Saturation 13 L Ferritin 287.0 Test 03/10/17 11:39 Bedside Glucose 161 Medications Medications Current Medications Acetaminophen (Tylenol Tab) 650 mg Q6H PRN PO PAIN LEVEL 1-3 OR FEVER Last administered on 03/04/17 06:47; Admin Dose 650 MG; Start 03/03/17 at 08:00 Morphine Sulfate (morphine) 4 mg Q4H PRN IV PAIN LEVEL 7-10; Start 03/03/17 at 08:00 Atorvastatin Calcium (Lipitor) 20 mg QHS PO Last administered on 03/09/17 20: 23; Admin Dose 20 MG; Start 03/03/17 at 21:00 Lisinopril (Zestril) 10 mg DAILY PO Last administered on 03/10/17 08:20; Admin Dose 10 MG; Start 03/04/17 at 09:00 Loratadine (Claritin) 10 mg DAILY PO Last administered on 03/10/17 08:19; Admin Dose 10 MG; Start 03/04/17 at 09:00 Diagnostic Test (Pha) (Accu-Chek) 1 ea 02 XX Last administered on 03/06/17 02: 00; Admin Dose 1 EA; Start 03/04/17 at 02:00 Miscellaneous Information 1 ea NOTE XX ; Start 03/03/17 at 14:00 Glucose (Glutose) 15 gm Q15M PRN PO DECREASED GLUCOSE; Start 03/03/17 at 14:00 Glucose (Glutose) 22.5 gm Q15M PRN PO DECREASED GLUCOSE; Start 03/03/17 at 14: 00 Dextrose (D50w Syringe) 25 ml Q15M PRN IV DECREASED GLUCOSE; Start 03/03/17 at 14:00 Dextrose (D50w Syringe) 50 ml Q15M PRN IV DECREASED GLUCOSE; Start 03/03/17 at 14:00 Glucagon (Glucagen) 1 mg Q15M PRN IM DECREASED GLUCOSE; Start 03/03/17 at 14:00 Glucose 15 gm 15 gm Q15M PRN BUCCAL DECREASED GLUCOSE; Start 03/03/17 at 14:00 Vancomycin HCl (Vancocin) 250 ml @ 125 mls/hr Q8H IVPB Last administered on 15:35; Admin Dose 125 MLS/HR; Start 03/07/17 at 16:00 Levofloxacin (Levaquin) 500 mg DAILY@06 PO Last administered on 03/10/17 05: 55; Admin Dose 500 MG; Start 03/08/17 at 13:30 Lactobacillus Acidophilus/ Rhamnosus (Culturelle) 1 cap BID PO Last administered on 03/10/17 08:19; Admin Dose 1 CAP; Start 03/08/17 at 21:00 Enoxaparin Sodium (Lovenox) 80 mg Q12 SC Last administered on 03/10/17 08:19 ; Admin Dose 80 MG; Start 03/08/17 at 21:00 Insulin Glargine (Lantus) 26 unit DAILY@08 SC Last administered on 03/10/17 07:41; Admin Dose 26 UNIT; Start 03/10/17 at 08:00 IV Flush (NS 10 ml) 10 ml PRN PRN IV IV PROTOCOL; Start 03/10/17 at 11:00 Collagenase (Santyl) 1 applic DAILY TOP ; Start 03/10/17 at 17:30 JAJA SHARP Mar 10, 2017 17:51
== END 2017-03-10 18:23 | disposition home health service (06) | DRG 256 ==
LOC: MS4 01:49
PROVIDERS: ADMIT Family Medicine; ATTEND Family Medicine
PROC: 0H9MXZZ Drainage of Right Foot Skin, External Approach (ICD-10-PCS; 2017-03-04)
PROC: 0Y6V0Z0 Detachment at Right 4th Toe, Complete, Open Approach (ICD-10-PCS; principal; 2017-03-04 20:00)
PROC: 02HV33Z Insertion of Infusion Device into Superior Vena Cava, Percutaneous Approach (ICD-10-PCS; 2017-03-10)
DX: E11.52 Type 2 diabetes mellitus with diabetic peripheral angiopathy with gangrene (principal); E11.621 Type 2 diabetes mellitus with foot ulcer; R65.10 Systemic inflammatory response syndrome (SIRS) of non-infectious origin without acute organ dysfunction; I70.263 Atherosclerosis of native arteries of extremities with gangrene, bilateral legs; L03.115 Cellulitis of right lower limb; E11.65 Type 2 diabetes mellitus with hyperglycemia; I10 Essential (primary) hypertension; E78.5 Hyperlipidemia, unspecified; I82.612 Acute embolism and thrombosis of superficial veins of left upper extremity
CPT/HCPCS: 36569; 71010; 73630; 73718; 76937; 80048; 80053; 80061; 80202; 82728; 82962; 83036; 83540; 83735; 84100; 84443; 85025; 85610; 85730; 87040; 88305; 88311; 93971; 97163; J1815; J1956; J2250; J2270; J3010; J3370; J7030; J7050

== ENCOUNTER 2018-04-30 10:55 | Emergency (ER) | payer OTHER ==
[~2018-04-30] VITALS: Ht 172.7 cm; Wt 76.8 kg
[~2018-04-30 10:55] MED LIST changes: -AMOX1TAB10 PO; +ASPI-817 PO; +ATOR20TA38 PO; -BACTDS PO; +GLIM1TAB2 PO; +LACT1CAP28 PO; +LANT3I SC; +LEVO500T48 PO; +LISI10TA2 PO; +METF100010 PO; +NOVO3I SC; -POLY10DR19 BOTH EYES; -POLY10DR19 RIGHT EYE; +Vancomycin Iv Per Pharmacy XX
[2018-04-30 11:04] VITALS: Ht 172.7 cm; Wt 76.8 kg
[2018-04-30] MEDS ORDERED: HYDROCODONE/APAP (5/325) TAB PO ONE (13:00)
[2018-04-30] MEDS ORDERED: DIAZ5TAB PO (13:35)
[2018-04-30] MEDS ORDERED: IBUP-1542 PO (13:35)
[2018-04-30] MEDS ORDERED: CEPH-443 PO (13:35)
[2018-04-30] MEDS ORDERED: SULF1TAB31 PO (13:35)
[2018-04-30 13:55] VITALS: BP 109/70; PULSE 80; RESP 18
--- NOTE | 2018-04-30 14:07 | ERD ---
ER Documentation Chief Complaint Chief Complaint RIGHT LEG PAIN HPI 47-year-old male history of insulin-dependent diabetes mellitus, hypertension and hyperlipidemia with history of deep vein thrombosis presents the emergency department complaining of right leg pain from 3 days prior to being seen. Patient denies any trauma, fevers. States that every time he walks it hurts. ROS All systems reviewed and are negative except as per history of present illness. Medications Home Meds Active Scripts Sulfamethoxazole/Trimethoprim* (Bactrim Ds* Tablet) 1 Each Tablet, 1 TAB PO BID, #14 TAB Prov:LILA BROWNC 04/30/18 Cephalexin* (Keflex*) 500 Mg Capsule, 500 MG PO QID for 7 Days, CAP Prov:LILA BROWNC 04/30/18 Ibuprofen* (Motrin*) 600 Mg Tab, 600 MG PO Q6H PRN for PAIN AND OR ELEVATED TEMP, #30 TAB Prov:LILA BROWNC 04/30/18 Diazepam* (Valium*) 5 Mg Tablet, 5 MG PO BID PRN for MUSCLE SPASMS, #12 TAB Prov:LILA BROWNC 04/30/18 [Vancomycin Iv Per Pharmacy] 1 EA EACH No Conflict Check, 0 EA XX .PER PROTOCOL for 7 Days Prov:DARREN HOUSE 03/10/17 Levofloxacin* (Levaquin*) 500 Mg Tablet, 500 MG PO DAILY@06 for 7 Days, #7 TAB Prov:DARREN HOUSE 03/10/17 Lactobacillus Rhamnosus GG (Culturelle) 1 Each Capsule, 1 CAP PO BID for 30 Days, #60 CAP Prov:DARREN HOUSE 03/10/17 Insulin Glargine* (Lantus*) 100 Unit/Ml Soln, 26 UNIT SC DAILY@08 for 30 Days Prov:DARREN HOUSE 03/10/17 Insulin Aspart* (Novolog Insulin Pen*) 100 Unit/Ml Soln, 9 UNIT SC WITH MEALS for 30 Days Prov:DARREN HOUSE 03/10/17 Cetirizine Hcl* (Zyrtec*) 10 Mg Capsule, 10 MG PO DAILY, #10 TAB.CHEW Prov:DIALLO LAW PA-C 04/09/16 Reported Medications Lisinopril* (Lisinopril*) 10 Mg Tablet, 10 MG PO DAILY, #30 TAB 03/03/17 Atorvastatin Calcium* (Atorvastatin Calcium*) 20 Mg Tablet, 20 MG PO QHS, #30 TAB 03/03/17 Glimepiride* (Glimepiride*) 1 Mg Tablet, 1 MG PO WITH BREAKFAST, TAB 03/03/17 Metformin Hcl* (Metformin Hcl*) 1,000 Mg Tablet, 1000 MG PO WITH BREAKFAST DINNE, #30 TAB 03/03/17 Aspirin* (Aspirin* EC) 81 Mg Tablet.dr, 81 MG PO DAILY, TAB 03/03/17 Allergies Allergies: Coded Allergies: No Known Allergy (Unverified , 04/30/18) PMhx/Soc History of Surgery: Yes (appendectomy , R.1st toe removal) Anesthesia Reaction: No Hx Neurological Disorder: No Hx Respiratory Disorders: No Hx Cardiac Disorders: No Hx Psychiatric Problems: No Hx Miscellaneous Medical Probl: Yes (DM) Hx Alcohol Use: Yes (social) Hx Substance Use: No Hx Tobacco Use: No Smoking Status: Former smoker Physical Exam Vitals Vital Signs Date Temp Pulse Resp B/P (MAP) Pulse Ox O2 O2 Flow FiO2 Time Delivery Rate 04/30/18 98.3 80 18 109/70 99 Room Air 13:55 (83) 04/30/18 98.1 84 18 114/68 99 11:04 (83) Physical Exam Const: No acute distress Head: Atraumatic Eyes: Normal Conjunctiva ENT: Normal External Ears, Nose and Mouth. Neck: Full range of motion. No meningismus. Resp: Clear to auscultation bilaterally Cardio: Regular rate and rhythm, no murmurs Abd: Soft, non tender, non distended. Normal bowel sounds Skin: Indurated patch on the right posterior leg 6cm. Tender palpation Back: No midline or flank tenderness Ext: No cyanosis, or edema Neur: Awake and alert Psych: Normal Mood and Affect Results 24 hrs Current Medications Medications Dose Sig/Essence Start Time Status Last (Trade) Ordered Route PRN Stop Time Admin Dose Reason Admin 1 tab ONCE ONCE 04/30/18 DC 04/30/18 Acetaminophen PO 13:00 04/30/18 12:39 / 13:01 Hydrocodone Bitart ([place] (5/325)) Procedures/MDM This is a 47-year-old female insulin-dependent diabetes, hypertension, hyperli pidemia and DVT presents the emergency department complaint of right leg pain. There was no evidence of DVT. Differentials include but not limited to strain, spasm, vs other. Patient was given prescription for ibuprofen, Valium Patient is a well-appearing and stable to be discharged home to follow-up with primary care physician Departure Diagnosis: Primary Impression: Pain of right leg Condition: Stable Patient Instructions: Leg Spasm Referrals: NO PRIMARY,CARE PHYSICIAN (PCP) Additional Instructions: Visite a lópez era anderson para un EXAMEN.Regrese a estas instalaciones si no se mejora spike esperbamos o spike le dijimos.\\\ [place] toda la medicina attila y spike se le indic. La medicina que se le recet puede causarle sueo.NO DEBE MANEJAR NI OPERAR MAQUINARIAS PELIGROSAS mientras esta tomando esta medicina! You have been given a medicine which may cause drowsiness.DO NOT DRIVE OR OPERATE DANGEROUS MACHINERY while taking this medicine! [place] toda la medicina attila y spike se le indic. LILA BROWN PA-C Apr 30, 2018 14:07
== END 2018-04-30 13:47 | disposition home or self-care (01) ==
LOC: FTE 10:55
DX: M79.604 Pain in right leg (principal); I10 Essential (primary) hypertension; E11.9 Type 2 diabetes mellitus without complications; Z79.4 Long term (current) use of insulin; Z79.82 Long term (current) use of aspirin; Z87.891 Personal history of nicotine dependence
CPT/HCPCS: 93971; Z7502; Z7610

== ENCOUNTER 2018-05-05 14:49 | Inpatient (IN) | payer OTHER ==
[~2018-05-05] VITALS: Ht 182.9 cm; Wt 81.0 kg
[~2018-05-05 14:49] MED LIST changes: +CEPH-443 PO; +DIAZ5TAB PO; +IBUP-1542 PO; +SULF1TAB31 PO
--- NOTE | 2018-05-05 14:59 | ERD ---
ER Documentation Chief Complaint Chief Complaint RT LEG PAIN HPI The patient is a 47-year-old male, presenting to the ER from [facility] [place] [facility] because of acute right leg pain and swelling for the last 5 days, denies fever, chills, neck pain, chest pain, dyspnea, dysuria, diarrhea. He does not smoke nor drink. He has not been taking his insulin for the last 6 days Medical history: Diabetes mellitus, hypertension, dyslipidemia Past surgical history: Appendectomy, right fourth toe amputation ROS All systems reviewed and are negative except as per history of present illness. Medications Home Meds Active Scripts Sulfamethoxazole/Trimethoprim* (Bactrim Ds* Tablet) 1 Each Tablet, 1 TAB PO BID, #14 TAB Prov:LILA BROWNC 04/30/18 Cephalexin* (Keflex*) 500 Mg Capsule, 500 MG PO QID for 7 Days, CAP Prov:LILA BROWNC 04/30/18 Ibuprofen* (Motrin*) 600 Mg Tab, 600 MG PO Q6H PRN for PAIN AND OR ELEVATED TE MP, #30 TAB Prov:LILA BROWNC 04/30/18 Diazepam* (Valium*) 5 Mg Tablet, 5 MG PO BID PRN for MUSCLE SPASMS, #12 TAB Prov:LILA BROWNC 04/30/18 Reported Medications Insulin Lispro (Humalog Kwikpen) 200 Unit/1 Ml Insuln.pen, 12 UNIT SQ QAM, EA 05/05/18 Insulin Glargine,Hum.rec.anlog (Basaglar Kwikpen U-100) 100 Unit/1 Ml Insuln.pen, 26 UNIT SC QPM, EA 05/05/18 Cholecalciferol (Vitamin D3) (Vitamin D-3) 2,000 Unit Tablet, 2000 UNIT PO DAILY, TAB 05/05/18 Atorvastatin* (Atorvastatin*) 40 Mg Tablet, 40 MG PO QHS, #30 TAB 05/05/18 Aspirin* (Aspirin* EC) 81 Mg Tablet.dr, 81 MG PO DAILY, TAB 05/05/18 Lisinopril* (Lisinopril*) 10 Mg Tablet, 10 MG PO DAILY, #30 TAB 05/05/18 Discontinued Reported Medications Lisinopril* (Lisinopril*) 10 Mg Tablet, 10 MG PO DAILY, #30 TAB 03/03/17 Atorvastatin Calcium* (Atorvastatin Calcium*) 20 Mg Tablet, 20 MG PO QHS, #30 TAB 03/03/17 Glimepiride* (Glimepiride*) 1 Mg Tablet, 1 MG PO WITH BREAKFAST, TAB 03/03/17 Metformin Hcl* (Metformin Hcl*) 1,000 Mg Tablet, 1000 MG PO WITH BREAKFAST DINNE, #30 TAB 03/03/17 Aspirin* (Aspirin* EC) 81 Mg Tablet.dr, 81 MG PO DAILY, TAB 03/03/17 Discontinued Scripts [Vancomycin Iv Per Pharmacy] 1 EA EACH No Conflict Check, 0 EA XX .PER PROTOCOL for 7 Days Prov:LACYDARREN 03/10/17 Levofloxacin* (Levaquin*) 500 Mg Tablet, 500 MG PO DAILY@06 for 7 Days, #7 TAB Prov:LACYDARREN 03/10/17 Lactobacillus Rhamnosus GG (Culturelle) 1 Each Capsule, 1 CAP PO BID for 30 Days, #60 CAP Prov:LACYDARREN 03/10/17 Insulin Glargine* (Lantus*) 100 Unit/Ml Soln, 26 UNIT SC DAILY@08 for 30 Days Prov:LACYDARREN 03/10/17 Insulin Aspart* (Novolog Insulin Pen*) 100 Unit/Ml Soln, 9 UNIT SC WITH MEALS for 30 Days Prov:LACYDARREN 03/10/17 Cetirizine Hcl* (Zyrtec*) 10 Mg Capsule, 10 MG PO DAILY, #10 TAB.CHEW Prov:DIALLO LAW PA-C 04/09/16 Allergies Allergies: Coded Allergies: No Known Allergy (Unverified , 05/05/18) PMhx/Soc History of Surgery: Yes (appendectomy , R.1st toe removal) Anesthesia Reaction: No Hx Neurological Disorder: No Hx Respiratory Disorders: No Hx Cardiac Disorders: No Hx Psychiatric Problems: No Hx Miscellaneous Medical Probl: Yes (DM) Hx Alcohol Use: Yes (social) Hx Substance Use: No Hx Tobacco Use: No Physical Exam Vitals Vital Signs Date Temp Pulse Resp B/P (MAP) Pulse Ox O2 O2 Flow FiO2 Time Delivery Rate 05/05/18 99 20 106/91 99 Room Air 18:00 (96) 05/05/18 98 20 103/63 99 Room Air 16:30 (76) 05/05/18 Nasal 2 15:43 Cannula 05/05/18 99.4 111 22 107/75 100 14:56 (86) Physical Exam Const: No acute distress. Hydrated Head: Atraumatic. Eyes: Normal Conjunctiva. ENT: Normal External Ears, Nose and Mouth. Neck: Full range of motion. No meningismus. Resp: Clear to auscultation bilaterally. Cardio: Regular tachy Abd: Soft, non distended, normal bowel sounds, non tender. Skin: No petechiae or rashes. Back: No midline or flank tenderness. Ext: Right lower extremity distally posterior thigh is erythematous and warm to touch, minimal right calf tenderness Neur: Awake and alert. No focal deficit Psych: Normal Mood and Affect. Result Diagram: 05/05/18 1535 05/05/18 1645 Results 24 hrs Laboratory Tests Test 05/05/18 15:13 05/05/18 15:14 05/05/18 15:35 05/05/18 16:45 Bedside Glucose 486 mg/dL Blood Gas Blood venous Specimen Source Arterial Blood 05/05/2018 3:30:35 Date Drawn PM Arterial Blood VENOUS LINE Gas Puncture Site [place] Test N/A Venous Blood pH 7.454 Venous Blood pCO2 41.6 mmHG (Temp Corrected) Venous Blood pO2 31.1 mmHG (Temp Corrected) Venous Blood HCO3 28.5 mmol/L Venous Blood 62.4 mmHG Oxygen Saturation Venous Blood Base 4.2 mmol/L Excess Venous Blood 12.3 g/dl Total Hemoglobin Venous Blood 61.7 % Oxyhemoglobin Venous Blood 0.4 % Methemoglobin Carboxyhemoglobin 0.8 % Blood Gas 37.0 C Temperature Blood Gas ROOM AIR Modality FiO2 21.0 % Blood Gas [place] Notified Whom Blood Gas 05/05/2018 3:39:34 Notified Time PM White Blood Count 9.2 10^3/ul Red Blood Count 4.13 10^6/ul Hemoglobin 11.7 g/dl Hematocrit 34.2 % Mean Corpuscular 82.8 fl Volume Mean Corpuscular 28.3 pg Hemoglobin Mean Corpuscular 34.2 g/dl Hemoglobin Concen t Red Cell 11.9 % Distribution Width Platelet Count 287 10^3/UL Mean Platelet 9.8 fl Volume Immature 0.500 % Granulocytes % Neutrophils % 91.6 % Lymphocytes % 4.5 % Monocytes % 2.3 % Eosinophils % 0.8 % Basophils % 0.3 % Nucleated Red 0.0 /100WBC Blood Cells % Immature 0.050 10^3/ul Granulocytes # Neutrophils # 8.5 10^3/ul Lymphocytes # 0.4 10^3/ul Monocytes # 0.2 10^3/ul Eosinophils # 0.1 10^3/ul Basophils # 0.0 10^3/ul Nucleated Red 0.0 10^3/ul Blood Cells # Prothrombin Time 12.5 Sec Prothrombin Time 1.0 Ratio INR International 0.92 Normalized Ratio Activated 29.5 Sec Partial Thrombopl ast Time POC Venous 3.0 mmol/L Lactate Troponin I < 0.012 ng/ml Sodium Level 130 mmol/L Potassium Level 4.2 mmol/L Chloride Level 98 mmol/L Carbon Dioxide 25 mmol/L Level Anion Gap 7 Blood Urea 23 mg/dl Nitrogen Creatinine 1.21 mg/dl Est Glomerular > 60 mL/min Filtrat Rate mL/min Glucose Level 451 mg/dl Calcium Level 8.4 mg/dl Phosphorus Level 3.4 mg/dl Magnesium Level 1.9 mg/dl Total Bilirubin 0.1 mg/dl Direct Bilirubin 0.00 mg/dl Indirect 0.1 mg/dl Bilirubin Aspartate Amino 22 IU/L Transf (AST/SGOT) Alanine 8 IU/L Aminotransferase (ALT/SGPT) Alkaline 124 IU/L Phosphatase Total Protein 7.3 g/dl Albumin 3.0 g/dl Globulin 4.30 g/dl Albumin/Globulin 0.69 Ratio Test 05/05/18 17:41 Bedside Glucose 438 mg/dL Current Medications Medications Dose Sig/Essence Start Time Status Last (Trade) Ordered Route PRN Stop Time Admin Dose Reason Admin Sodium 2,430 ml BOLUS OVER 2 05/05/18 DC 05/05/18 Chloride HOURS STAT 15:09 05/05/18 15:39 (NS) IV* 15:11 Vancomycin 250 ml @ ONCE ONCE 05/05/18 DC 05/05/18 HCl 125 mls/hr IVPB 16:00 05/05/18 17:23 17:59 Piperacillin 100 ml @ ONCE ONCE 05/05/18 DC 05/05/18 Sod/ 200 mls/hr IVPB 16:00 05/05/18 16:11 Tazobactam 16:29 Sod Insulin 10 unit ONCE ONCE 05/05/18 DC 05/05/18 Human SC 18:00 05/05/18 17:53 Lispro 18:01 (Humalog) Procedures/MDM [place] [address] Radiology Main Line: [phone] DIAGNOSTIC IMAGING REPORT Patient: MALCOM SINGH : 1970 Age: 47 Sex: M MR #: [id number] DOS: 05/05/18 1509 Ordering MD: SUHAS JANE MD Location: E/R Room/Bed: PROCEDURE: XR Chest. CLINICAL INDICATION: chest pain TECHNIQUE: Single frontal view of the chest was obtained COMPARISON: 03/10/2017 FINDINGS: The heart and mediastinum are within normal limits. There is a possible mild patchy right lower lobe infiltrate versus atelectasis. There is no pleural effusion or pneumothorax. RPTAT: AA IMPRESSION: Possible mild patchy right lower lobe infiltrate versus atelectasis. .Barrington Sanchez MD, MD Date Time Electronically viewed and signed by .Barrington Sanchez MD, MD on 05/05/2018 15:28 .S/ CC: SUHAS JANE MD [id number] [place] [address] Radiology Main Line: [phone] DIAGNOSTIC IMAGING REPORT Patient: MALCOM SINGH : 1970 Age: 47 Sex: M MR #: [id number] DOS: 05/05/18 1509 Ordering MD: SUHAS JANE MD Location: E/R Room/Bed: PROCEDURE: US Lower extremity Venous. CLINICAL INDICATION: Bilateral lower extremity edema TECHNIQUE: Multiple sonographic images of the bilateral lower extremity deep venous system was obtained utilizing grayscale, color-flow, compressive sonography and doppler imaging with augmentation. The images were reviewed on a PACS workstation. COMPARISON: None. FINDINGS: There is normal compressibility and flow within the bilateral common femoral, femoral , posterior tibial and popliteal veins. There is subcutaneous soft tissue swelling in the right posterior mid to lower thigh. RPTAT: AA IMPRESSION: No sonographic evidence for deep venous thrombosis. Soft tissue swelling in the right posterior mid to lower thigh. No focal fluid collection. .Barrington Sanchez MD, MD Date Time Electronically viewed and signed by .Barrington Sanchez MD, on 05/05/2018 16:08 .S/ CC: SUHAS JANE MD [id number] [place] [address] Radiology Main Line: [phone] DIAGNOSTIC IMAGING REPORT Patient: MALCOM SINGH : 1970 Age: 47 Sex: M MR #: [id number] DOS: 05/05/18 0000 Ordering MD: HIWOT CHEN MD Location: E/R Room/Bed: PROCEDURE: CT right thigh with contrast. CLINICAL INDICATION: Swelling and pain TECHNIQUE: CT scan of the right thigh was performed on a multi-detector high- resolution CT scanner following intravenous infusion of 100 cc of Omnipaque-300 amanda. Coronal and sagittal reformatted images were obtained from the axial source images. Images were reviewed on a high-resolution PACS workstation. The total exam CTDI equals 4.1 mGy and the total exam DLP equals 218 mGy-cm. DICOM images are available. 3-D reconstructions were not performed on the rad iologist's workstation and evaluated for fractures. One or more of the following dose reduction techniques were utilized: 1.) Automated exposure control 2.) Adjustment of the mA +/- kV according to patient's size 3.) Use of iterative reconstruction technique. COMPARISON: None. FINDINGS: There is an elongated rim enhancing fluid collection within the muscle belly of the semimembranosus. This measures 2.3 x 2.4 cm in cross section and approximately 11 cm in length. The caudal extent lies approximately 5 cm above the joint line of the knee. The visualized muscles and bones of the thigh are otherwise unremarkable. There is subcutaneous edema overlying the region of the abscess. IMPRESSION: 1. Findings compatible with an intramuscular abscess in the semimembranosus muscle belly, as described. RPTAT:AAJJ Physician Magdaleno Date Time Electronically viewed and signed by Physician Magdaleno on 05/05/2018 19:42 GW/ CC: HIWTO CHEN MD [id number] EKG: Read by emergency physician Rate/Rhythm: Sinus Tachycardia 109 beats/min QRS, ST, T-waves: No ST elevation, no T inversion, low voltage Impression: Abnormal EKG MEDICAL MAKING DECISION: The patient is a 47-year-old male, presenting with acute severe sepsis, acute right lower extremity cellulitis, acute pneumonia, acute hyperglycemia. He was treated with normosaline 30 mm/kg IV, vancomycin IV, Zosyn IV for acute severe sepsis, Humalog 10 units subcutaneously for acute hyperglycemia The differential diagnoses considered include but are not limited to cellulitis, abscess, necrotizing fasciitis, HHS, DKA, UTI, pyelonephritis, pyelonephritis MDM: Patient's infectious symptoms have not stabilized and the patient is at risk of rapid decompensation. The patient will be admitted for careful hydration, antibiotic therapy, and infectious source control. SEVERE SEPSIS CRITERIA: Infectious source:cellulitis, pna End organ damage indicated by: Lactate > 2.0 mmol/L SEPSIS MANAGEMENT Time of recognition of severe sepsis: 3:50 pm 3 HOUR BUNDLE Blood cultures x 2 before broad-spectrum antibiotics: Yes 30 ml/kg NS bolus completed Initial lactate3 Repeat lactatepending SEPTIC SHOCK ASSESSMENT: No lactic acid > 4.0 No persistent hypotension (SBP < 90 or 40 mmHg drop, MAP < 65) despite 30 mL/kg IV fluid bolus CRITICAL CARE Critical care time 35 minutes Emergent fluid management while maintaining close respiratory support. Provision of immediate and broad-spectrum antibiotic therapy. Simultaneous assessment for possible sources in order to direct targeted therapy. Consideration for invasive and chemical support to prevent cardiopulmonary collapse. Critical care time is independent of procedures performed. Departure Diagnosis: Primary Impression: Severe sepsis Additional Impressions: Cellulitis of right leg PNA (pneumonia) Hyperglycemia Anemia Condition: Stable Comments I discussed the findings with the patient. I discussed the patient with the hospitalist Dr Chen at 4:45 pm. who was made aware of the lab, the treatment, the patient condition. The patient is admitted to [facility] Disclaimer: Inadvertent spelling and grammatical errors are likely due to EHR/dictation software use and do not reflect on the overall quality of patient care. Also, please note that the electronic time recorded on this note does not necessarily reflect the actual time of the patient encounter. SUHAS JANE MD May 05, 2018 14:59
[2018-05-05] MEDS ORDERED: SODIUM CHLORIDE 0.9% 1L BAG IV* STA (15:09)
[2018-05-05] MEDS ORDERED: VANCOMYCIN 1 GM (PMX) 250 ML IVPB ONE (16:00)
[2018-05-05] MEDS ORDERED: PIPER-TAZO 3.375 GM IV (PMX) 100 ML IVPB ONE (16:00)
[2018-05-05] MEDS ORDERED: LISI10TA2 PO (16:06)
[2018-05-05] MEDS ORDERED: ASPI-817 PO (16:06)
[2018-05-05] MEDS ORDERED: CHOL200056 PO (16:07)
[2018-05-05] MEDS ORDERED: ATOR40TA68 PO (16:07)
[2018-05-05] MEDS ORDERED: INSU100I33 SC (16:08)
[2018-05-05] MEDS ORDERED: INSU200I SQ (16:09)
[2018-05-05] MEDS ORDERED: INSULIN LISPRO 100 UNIT/ML VIAL SC ONE (18:00)
--- NOTE | 2018-05-05 18:58 | HP ---
Date/Time of Note Date/Time of Note DATE: 05/05/18 TIME: 18:54 Assessment/Plan VTE Prophylaxis Pharmacological prophylaxis: heparin Lines/Catheters IV Catheter Type (from Rust): Saline Lock Assessment/Plan Hospital Course This 47-year-old male with diabetes who presents with sepsis from likely skin and soft tissue infection of his right lower extremity. Also with hyperglycemia Sepsis from skin soft tissue infection: -Ultrasound to exclude DVT and did not see a clear abscess however given market induration I still feel like more imaging is required. Will perform CT of the leg with contrast -Vancomycin and Zosyn for now Diabetes with hyperglycemia -Start basal bolus insulin Result Diagram: 05/05/18 1535 05/05/18 1645 Results 24hrs Laboratory Tests Test 05/05/18 15:13 05/05/18 15:14 05/05/18 15:35 05/05/18 16:45 Bedside Glucose 486 *H Blood Gas Specimen Blood venous Source Arterial Blood 05/05/2018 3:30:35 Date Drawn PM Arterial Blood Gas VENOUS LINE Puncture Site [place] Test N/A Venous Blood pH 7.454 H Venous Blood pCO2 41.6 (Temp Corrected) Venous Blood pO2 31.1 H (Temp Corrected) Venous Blood HCO3 28.5 Venous Blood 62.4 Oxygen Saturation Venous Blood Base 4.2 Excess Venous Blood Total 12.3 Hemoglobin Venous Blood 61.7 Oxyhemoglobin Venous Blood 0.4 Methemoglobin Carboxyhemoglobin 0.8 Blood Gas 37.0 Temperature Blood Gas Modality ROOM AIR FiO2 21.0 Blood Gas Notified [place] Whom Blood Gas Notified 05/05/2018 3:39:34 Time PM White Blood Count 9.2 # Red Blood Count 4.13 L Hemoglobin 11.7 L Hematocrit 34.2 L Mean Corpuscular 82.8 Volume Mean Corpuscular 28.3 L Hemoglobin Mean Corpuscular 34.2 Hemoglobin Concent Red Cell 11.9 Distribution Width Platelet Count 287 # Mean Platelet 9.8 Volume Immature 0.500 H Granulocytes % Neutrophils % 91.6 H Lymphocytes % 4.5 L Monocytes % 2.3 Eosinophils % 0.8 Basophils % 0.3 Nucleated Red 0.0 Blood Cells % Immature 0.050 H Granulocytes # Neutrophils # 8.5 H Lymphocytes # 0.4 L Monocytes # 0.2 L Eosinophils # 0.1 Basophils # 0.0 Nucleated Red 0.0 Blood Cells # Prothrombin Time 12.5 Prothrombin Time 1.0 Ratio INR International 0.92 Normalized Ratio Activated 29.[address] Time POC Venous Lactate 3.0 *H Troponin I < 0.012 Sodium Level 130 L Potassium Level 4.2 Chloride Level 98 Carbon Dioxide 25 Level Anion Gap 7 Blood Urea 23 H Nitrogen Creatinine 1.21 Est Glomerular > 60 Filtrat Rate mL/min Glucose Level 451 *H Calcium Level 8.4 Phosphorus Level 3.4 Magnesium Level 1.9 Total Bilirubin 0.1 L Direct Bilirubin 0.00 Indirect Bilirubin 0.1 Aspartate Amino 22 Transf (AST/SGOT) Alanine 8 L Aminotransferase ( ALT/SGPT) Alkaline 124 H Phosphatase Total Protein 7.3 Albumin 3.0 L Globulin 4.30 H Albumin/Globulin 0.69 Ratio Test 05/05/18 17:41 Bedside Glucose 438 *H HPI/ROS Admit Date/Time Admit Date/Time Hx of Present Illness Is a 47-year-old male with a history of diabetes on insulin who presents with fever his pain and induration of his right lower extremity. The symptoms developed over the last few days. His right lower extremity has become increasingly painful and he has developed systemic symptoms. Feels feverish and lethargic. There is a markedly indurated area that has grown in his right posterior upper leg. He underwent ultrasound in the ER which was negative for DVT and is also been found to be markedly hyperglycemic. PMH/Family/Social Past Medical History Medical History: diabetes Coded Allergies: No Known Allergy (Unverified , 05/05/18) Past Surgical History Past Surgical Hx: no surgical history, appendectomy Family History Significant Family History: diabetes Social History Alcohol Use: none Smoking Status: Never smoker Drug Use: none Exam/Review of Systems Vital Signs Vitals Vital Signs Date Temp Pulse Resp B/P (MAP) Pulse Ox O2 O2 Flow FiO2 Time Delivery Rate 05/05/18 99 20 106/91 99 Room Air 18:00 (96) 05/05/18 2 15:43 05/05/18 99.4 14:56 Exam Exam Well-appearing and in no acute distress Tacky regular Breathing comfortably Right lower extremity without external signs of infection no erythema. However there is market tenderness in the posterior thigh as well as an area of clear induration. The skin is closed there is no drainage area there is no fluctuance HIWOT AVILES MD May 05, 2018 18:58
[2018-05-05] MEDS ORDERED: NACL 0.9% 3 ML SYG IV SCH (19:00)
[2018-05-05] MEDS ORDERED: VANCOMYCIN IV PER PHARMACY XX SCH (19:00)
[2018-05-05] MEDS ORDERED: DIAZEPAM 5 MG TAB PO PRN (19:00)
[2018-05-05] MEDS ORDERED: IBUPROFEN 600 MG TAB PO PRN (19:00)
[2018-05-05] MEDS ORDERED: IOHEXOL 300MG/ML 150 ML BTL ONE (19:12)
[2018-05-05] MEDS ORDERED: SOD CHLORIDE 0.9% 100 ML ONE (19:12)
[2018-05-05] MEDS ORDERED: DEXTROSE 50% 50 ML SYRINGE IV PRN ×2 (19:30)
[2018-05-05] MEDS ORDERED: GLUCOSE GEL 15 GRAM TUBE PO PRN ×2 (19:30)
[2018-05-05] MEDS ORDERED: VANCOMYCIN 500 MG (PMX) 100 ML IVPB ONE (19:30)
[2018-05-05] MEDS ORDERED: GLUCAGON 1 MG INJ IM PRN (19:30)
[2018-05-05] MEDS ORDERED: GLUCOSE GEL 15 GRAM TUBE BUCCAL PRN (19:30)
[2018-05-05 19:49] VITALS: BP 107/64; PULSE 82; RESP 16
[2018-05-05 20:00] VITALS: Ht 182.9 cm; Wt 81.0 kg
[2018-05-05] MEDS ORDERED: INSULIN GLARGINE [LANTus] (100 UNITS/ML) SYG SC SCH (20:00)
[2018-05-05] MEDS: HEPARIN 5,000 UNIT/1 ML VIAL SC SCH (20:14)
[2018-05-05] MEDS: ATORVASTATIN 40 MG TAB PO SCH (20:16)
[2018-05-05 20:18] VITALS: PULSE 80
[2018-05-05] MEDS: INSULIN ASPART [NOVOLOG] 3 ML PEN SC SCH (20:34)
[2018-05-06] VITALS (11 sets, daily range): BP systolic 100–132; BP diastolic 59–79; PULSE 61–92; RESP 16–18
[2018-05-06] MEDS ORDERED: PIPER-TAZO 3.375 GM IV (PMX) 100 ML IVPB SCH (02:00)
[2018-05-06] MEDS: HYDROCODONE/APAP (5/325) TAB PO PRN ×2 (06:15→15:58)
[2018-05-06] MEDS: PIPER-TAZO 3.375 GM IV (PMX) 100 ML IVPB SCH ×3 (06:35→23:53)
[2018-05-06] MEDS: VANCOMYCIN 1.25 GM in SOD CHLORIDE 0.9% 250 ML IVPB SCH ×2 (08:11→20:40)
[2018-05-06] MEDS: INSULIN ASPART [NOVOLOG] 3 ML PEN SC SCH ×6 (08:21→17:06)
[2018-05-06] MEDS: HEPARIN 5,000 UNIT/1 ML VIAL SC SCH ×2 (08:21→20:44)
[2018-05-06] MEDS ORDERED: ASPIRIN (EC) 81 MG TAB PO SCH (09:00)
--- NOTE | 2018-05-06 14:46 | PN ---
Date/Time of Note Date/Time of Note DATE: 05/06/18 TIME: 14:33 Assessment/Plan VTE Prophylaxis Risk score (from [facility])>0 risk: 4 SCD applied (from [facility]): No SCD contraindicated: other (lesion) Pharmacological prophylaxis: heparin Lines/Catheters IV Catheter Type (from [facility]): Saline Lock Urinary Cath still in place: No Assessment/Plan Assessment/Plan 1. Right semimembranosus muscle belly intramuscular fluid collection, 2.3x2.4x11 cm, hematoma versus abscess, on vancomycin/zosyn, ortho consult 2. DM, on insulin 3. Dyslipidemia, on lipitor 4. Normocytic anemia, follow up with H/H 4. DVT prophylaxis: heparin Result Diagram: 05/06/18 0716 05/06/18 0716 Results 24hrs Laboratory Tests Test 05/05/18 15:13 05/05/18 15:14 05/05/18 15:35 05/05/18 16:45 Bedside Glucose 486 *H Blood Gas Specimen Blood venous Source Arterial Blood 05/05/2018 3:30:35 Date Drawn PM Arterial Blood Gas VENOUS LINE Puncture Site [place] Test N/A Venous Blood pH 7.454 H Venous Blood pCO2 41.6 (Temp Corrected) Venous Blood pO2 31.1 H (Temp Corrected) Venous Blood HCO3 28.5 Venous Blood 62.4 Oxygen Saturation Venous Blood Base 4.2 Excess Venous Blood Total 12.3 Hemoglobin Venous Blood 61.7 Oxyhemoglobin Venous Blood 0.4 Methemoglobin Carboxyhemoglobin 0.8 Blood Gas 37.0 Temperature Blood Gas Modality ROOM AIR FiO2 21.0 Blood Gas Notified [place] Whom Blood Gas Notified 05/05/2018 3:39:34 Time PM White Blood Count 9.2 # Red Blood Count 4.13 L Hemoglobin 11.7 L Hematocrit 34.2 L Mean Corpuscular 82.8 Volume Mean Corpuscular 28.3 L Hemoglobin Mean Corpuscular 34.2 Hemoglobin Concent Red Cell 11.9 Distribution Width Platelet Count 287 # Mean Platelet 9.8 Volume Immature 0.500 H Granulocytes % Neutrophils % 91.6 H Lymphocytes % 4.5 L Monocytes % 2.3 Eosinophils % 0.8 Basophils % 0.3 Nucleated Red 0.0 Blood Cells % Immature 0.050 H Granulocytes # Neutrophils # 8.5 H Lymphocytes # 0.4 L Monocytes # 0.2 L Eosinophils # 0.1 Basophils # 0.0 Nucleated Red 0.0 Blood Cells # Prothrombin Time 12.5 Prothrombin Time 1.0 Ratio INR International 0.92 Normalized Ratio Activated 29.[address] Time POC Venous Lactate 3.0 *H Troponin I < 0.012 Sodium Level 130 L Potassium Level 4.2 Chloride Level 98 Carbon Dioxide 25 Level Anion Gap 7 Blood Urea 23 H Nitrogen Creatinine 1.21 Est Glomerular > 60 Filtrat Rate mL/min Glucose Level 451 *H Calcium Level 8.4 Phosphorus Level 3.4 Magnesium Level 1.9 Total Bilirubin 0.1 L Direct Bilirubin 0.00 Indirect Bilirubin 0.1 Aspartate Amino 22 Transf (AST/SGOT) Alanine 8 L Aminotransferase ( ALT/SGPT) Alkaline 124 H Phosphatase Total Protein 7.3 Albumin 3.0 L Globulin 4.30 H Albumin/Globulin 0.69 Ratio Test 05/05/18 17:41 05/05/18 20:09 05/05/18 20:22 05/06/18 07:16 Bedside Glucose 438 *H 372 H Lactic Acid Level 1.7 White Blood Count 10.0 Red Blood Count 3.22 #L Hemoglobin 9.0 #L Hematocrit 27.6 L Mean Corpuscular 85.7 Volume Mean Corpuscular 28.0 L Hemoglobin Mean Corpuscular 32.6 Hemoglobin Concent Red Cell 11.7 Distribution Width Platelet Count 277 Mean Platelet 8.9 Volume Immature 0.400 Granulocytes % Neutrophils % 79.4 H Lymphocytes % 11.4 L Monocytes % 6.6 Eosinophils % 1.9 Basophils % 0.3 Nucleated Red 0.0 Blood Cells % Immature 0.040 H Granulocytes # Neutrophils # 8.0 H Lymphocytes # 1.1 Monocytes # 0.7 Eosinophils # 0.2 Basophils # 0.0 Nucleated Red 0.0 Blood Cells # Sodium Level 134 L Potassium Level 4.4 Chloride Level 100 Carbon Dioxide 26 Level Anion Gap 8 Blood Urea 25 H Nitrogen Creatinine 1.19 Est Glomerular > 60 Filtrat Rate mL/min Glucose Level 325 H Hemoglobin A1c Calcium Level 8.8 Total Bilirubin 0.1 L Direct Bilirubin 0.00 Indirect Bilirubin 0.1 Aspartate Amino 129 #H Transf (AST/SGOT) Alanine 72 H Aminotransferase ( ALT/SGPT) Alkaline 123 H Phosphatase Total Protein 6.7 Albumin 2.9 L Globulin 3.80 H Albumin/Globulin 0.76 Ratio Test 05/06/18 08:08 05/06/18 11:54 Bedside Glucose 328 H 300 H Subjective 24 Hr Interval Summary Free Text/Dictation right lower thigh pain, no fever or chills Exam/Review of Systems Vital Signs Vitals Vital Signs Date Temp Pulse Resp B/P (MAP) Pulse Ox O2 O2 Flow FiO2 Time Delivery Rate 05/06/18 65 14:09 05/06/18 98.0 16 100/59 97 11:18 (73) 05/05/18 Room Air 19:08 05/05/18 2 15:43 Intake and Output 05/05/18 05/05/18 05/06/18 1414:59 22:59 06:59 IntakeIntake Total 600 ml OutputOutput Total 100 ml 800 ml BalanceBalance -100 ml -200 ml Exam Constitutional: alert, oriented, well developed Psych: no complaints, nl mood/affect Head: normocephalic, atraumatic Eyes: nl conjunctiva, EOMI, nl lids, nl sclera, PERRL ENMT: nl external ears & nose, nl lips & teeth, nl nasal mucosa & septum Neck: supple, non-tender Respiratory: clear to auscultation, normal air movement; No congested cough, No crackles/rales, No diminished breath sounds, No intercostal retraction, No labored breathing, No respirations, No tactile fremitus, No wheezing, No other Cardiovascular: regular rate and rhythm, nl pulses; No bruits, No diastolic murmur, No edema, No gallop, No irregular rhythm, No jugular venous distention (JVD), No murmurs/extra sounds, No rub, No systolic murmur, No S3, No S4, No other Gastrointestinal: soft, nl liver, spleen, non-tender; No ascites, No bowel sounds, No distended, No firm, No hepatomegaly, No mass, No rebound or guarding, No splenomegaly, No surgical scars, No tender, No other Extremities: other (right thigh local swelling with tenderness and mass like lesion without skin color change) Neurological: [employer] 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 II-XII intact, nl mental status, nl speech, nl strength Medications Medications Current Medications Insulin Glargine (Lantus) 20 units DAILY@2000 SC Last administered on 05/05/18at 20:33; Admin Dose 20 UNITS; Start 05/05/18 at 20:00 Insulin Aspart (Novolog Insulin Pen) 5 unit WITH MEALS SC Last administered on 05/06/18at 12:01; Admin Dose 5 UNIT; Start 05/06/18 at 07:55 Insulin Aspart (Novolog Insulin Pen) NOVOLOG *MILD* ALGORITHM WITH MEALS BEDTIME SC Last administered on 05/06/18at 12:01; Admin Dose 4 UNIT; Start 05/05/18 at 21:00 Vancomycin HCl (Vanco Iv Per Pharmacy) VANCOMYCIN PER PHARMACY PER PROTOCOL XX ; Start 05/05/18 at 19:00 Atorvastatin Calcium (Lipitor) 40 mg QHS PO Last administered on 05/05/18at 20:16; Admin Dose 40 MG; Start 05/05/18 at 21:00 Diazepam (Valium) 5 mg BID PRN PO MUSCLE SPASMS; Start 05/05/18 at 19:00 Ibuprofen (Motrin) 600 mg Q6H PRN PO MILD PAIN(1-3)OR ELEVATED TEMP; Start 05/05/18 at 19:00 IV Flush (NS 3 ml) 3 ml PER PROTOCOL IV ; Start 05/05/18 at 19:00 Acetaminophen/ Hydrocodone Bitart ([place] (5/325)) 2 tab Q6H PRN PO SEVERE PAIN LEVEL 7-10 Last administered on 05/06/18at 06:15; Admin Dose 2 TAB; Start 05/05/18 at 19:00 Heparin Sodium (Porcine) (Heparin (5000 Units/1ml)) 5,000 unit Q12 SC Last administered on 05/06/18at 08:21; Admin Dose 5,000 UNIT; Start 05/05/18 at 21:00 Miscellaneous Information 1 ea NOTE XX ; Start 05/05/18 at 19:30 Glucose (Glutose) 15 gm Q15M PRN PO DECREASED GLUCOSE; Start 05/05/18 at 19:30 Glucose (Glutose) 22.5 gm Q15M PRN PO DECREASED GLUCOSE; Start 05/05/18 at 19:30 Dextrose (D50w Syringe) 25 ml Q15M PRN IV DECREASED GLUCOSE; Start 05/05/18 at 19:30 Dextrose (D50w Syringe) 50 ml Q15M PRN IV DECREASED GLUCOSE; Start 05/05/18 at 19:30 Glucagon (Glucagen) 1 mg Q15M PRN IM DECREASED GLUCOSE; Start 1/7/19 at 19:30 Glucose (Glutose) 15 gm Q15M PRN BUCCAL DECREASED GLUCOSE; Start 05/05/18 at 19:30 Vancomycin HCl 1.25 gm/Sodium Chloride 250 ml @ 83.333 mls/ hr Q12H IVPB Last administered on 05/06/18at 08:11; Admin Dose 83.333 MLS/HR; Start 05/06/18 at 08:00 Piperacillin Sod/ Tazobactam Sod 100 ml @ 200 mls/hr Q8 IVPB Last administered on 05/06/18at 14:02; Admin Dose 200 MLS/HR; Start 05/06/18 at 07:30 WARREN LEUNG MD May 06, 2018 14:44
--- NOTE | 2018-05-06 16:12 | CONS ---
Date/Time of Note Date/Time of Note DATE: 05/06/18 TIME: 15:55 Assessment/Plan Assessment/Plan Assessment/Plan 1. Intramuscular abscess in the semimembranosus muscle belly -Antibiotics -Tight glucose control -Incision and drainage per orthopedics 2. Right leg pain: -Pain management -As above 3.Hypochromic anemia -Monitor and transfuse as needed 4. Hyperglycemia: hemoglobin A1c pending -Glucose optimization 5. Transaminitis: -Trend -Consider hep panel 6. Dyslipidemia: -Medical management Thank you. Patient seen and examined in collaboration with Dr. Danny Alarcon. Result Diagram: 05/06/18 0716 05/06/18 0716 Results 24hrs Laboratory Tests Test 05/05/18 16:45 05/05/18 17:41 05/05/18 20:09 05/05/18 20:22 Sodium Level 130 L Potassium Level 4.2 Chloride Level 98 Carbon Dioxide Level 25 Anion Gap 7 Blood Urea Nitrogen 23 H Creatinine 1.21 Est Glomerular Filtrat > 60 Rate mL/min Glucose Level 451 *H Calcium Level 8.4 Phosphorus Level 3.4 Magnesium Level 1.9 Total Bilirubin 0.1 L Direct Bilirubin 0.00 Indirect Bilirubin 0.1 Aspartate Amino 22 Transf (AST/SGOT) Alanine 8 L Aminotransferase (ALT/SG PT) Alkaline Phosphatase 124 H Total Protein 7.3 Albumin 3.0 L Globulin 4.30 H Albumin/Globulin Ratio 0.69 Bedside Glucose 438 *H 372 H Lactic Acid Level 1.7 Test 05/06/18 07:16 05/06/18 08:08 05/06/18 11:54 White Blood Count 10.0 Red Blood Count 3.22 #L Hemoglobin 9.0 #L Hematocrit 27.6 L Mean Corpuscular Volume 85.7 Mean Corpuscular 28.0 L Hemoglobin Mean Corpuscular 32.6 Hemoglobin Concent Red Cell Distribution 11.7 Width Platelet Count 277 Mean Platelet Volume 8.9 Immature Granulocytes % 0.400 Neutrophils % 79.4 H Lymphocytes % 11.4 L Monocytes % 6.6 Eosinophils % 1.9 Basophils % 0.3 Nucleated Red Blood 0.0 Cells % Immature Granulocytes # 0.040 H Neutrophils # 8.0 H Lymphocytes # 1.1 Monocytes # 0.7 Eosinophils # 0.2 Basophils # 0.0 Nucleated Red Blood 0.0 Cells # Sodium Level 134 L Potassium Level 4.4 Chloride Level 100 Carbon Dioxide Level 26 Anion Gap 8 Blood Urea Nitrogen 25 H Creatinine 1.19 Est Glomerular Filtrat > 60 Rate mL/min Glucose Level 325 H Hemoglobin A1c Calcium Level 8.8 Total Bilirubin 0.1 L Direct Bilirubin 0.00 Indirect Bilirubin 0.1 Aspartate Amino 129 #H Transf (AST/SGOT) Alanine 72 H Aminotransferase (ALT/SG PT) Alkaline Phosphatase 123 H Total Protein 6.7 Albumin 2.9 L Globulin 3.80 H Albumin/Globulin Ratio 0.76 Bedside Glucose 328 H 300 H Consultation Date/Type/Reason Admit Date/Time Date of Consultation: May 06, 2018 Type of Consult Surgical Reason for Consultation intramuscular abscess in the semimembranosus muscle belly Requesting Provider: HIWOT AVILES MD Hx of Present Illness Giorgi Parker is a 47-year-old man with past medical history of diabetes who presented to the ED with complaints of right lower extremity pain. Pain is predominantly in the posterior thigh constant in nature. Associated symptoms include fevers and induration of the right posterior thigh. He also reports limitation in range of motion as well as difficulty walking due to pain. No numbness or tingling of the right lower extremity. No chills, congested cough, cp, palpitations, myalgias, nausea, vomiting, sz, rash or skin changes, injury or injections to the area. Ultrasound of the right lower extremity is negative for DVT however there is soft tissue swelling noted. CT of the leg shows int ramuscular abscess in the semimembranosus muscle belly no significant leukocytosis was noted. General surgery was asked to evaluate. 12 point ros was performed and is negative except as stated in hpi. Past Medical History Medical History: diabetes Medications Current Medications Insulin Glargine (Lantus) 20 units DAILY@2000 SC Last administered on 05/05/18at 20:33; Admin Dose 20 UNITS; Start 05/05/18 at 20:00 Insulin Aspart (Novolog Insulin Pen) 5 unit WITH MEALS SC Last administered on 05/06/18 12:01; Admin Dose 5 UNIT; Start 05/06/18 at 07:55 Insulin Aspart (Novolog Insulin Pen) NOVOLOG *MILD* ALGORITHM WITH MEALS BEDTIME SC Last administered on 05/06/18 12:01; Admin Dose 4 UNIT; Start 05/05/18 at 21:00 Vancomycin HCl (Vanco Iv Per Pharmacy) VANCOMYCIN PER PHARMACY PER PROTOCOL XX ; Start 05/05/18 at 19:00 Atorvastatin Calcium (Lipitor) 40 mg QHS PO Last administered on 05/05/18at 20:16; Admin Dose 40 MG; Start 05/05/18 at 21:00 Diazepam (Valium) 5 mg BID PRN PO MUSCLE SPASMS; Start 05/05/18 at 19:00 Ibuprofen (Motrin) 600 mg Q6H PRN PO MILD PAIN(1-3)OR ELEVATED TEMP; Start 05/05/18 at 19:00 IV Flush (NS 3 ml) 3 ml PER PROTOCOL IV ; Start 05/05/18 at 19:00 Acetaminophen/ Hydrocodone Bitart ([place] (5/325)) 2 tab Q6H PRN PO SEVERE PAIN LEVEL 7-10 Last administered on 05/06/18at 06:15; Admin Dose 2 TAB; Start 05/05/18 at 19:00 Heparin Sodium (Porcine) (Heparin (5000 Units/1ml)) 5,000 unit Q12 SC Last adm inistered on 05/06/18at 08:21; Admin Dose 5,000 UNIT; Start 05/05/18 at 21:00 Miscellaneous Information 1 ea NOTE XX ; Start 05/05/18 at 19:30 Glucose (Glutose) 15 gm Q15M PRN PO DECREASED GLUCOSE; Start 05/05/18 at 19:30 Glucose (Glutose) 22.5 gm Q15M PRN PO DECREASED GLUCOSE; Start 05/05/18 at 19:30 Dextrose (D50w Syringe) 25 ml Q15M PRN IV DECREASED GLUCOSE; Start 05/05/18 at 19:30 Dextrose (D50w Syringe) 50 ml Q15M PRN IV DECREASED GLUCOSE; Start 05/05/18 at 19:30 Glucagon (Glucagen) 1 mg Q15M PRN IM DECREASED GLUCOSE; Start 05/05/18 at 19:30 Glucose (Glutose) 15 gm Q15M PRN BUCCAL DECREASED GLUCOSE; Start 05/05/18 at 19:30 Vancomycin HCl 1.25 gm/Sodium Chloride 250 ml @ 83.333 mls/ hr Q12H IVPB Last administered on 05/06/18at 08:11; Admin Dose 83.333 MLS/HR; Start 05/06/18 at 08:00 Piperacillin Sod/ Tazobactam Sod 100 ml @ 200 mls/hr Q8 IVPB Last administered on 05/06/18at 14:02; Admin Dose 200 MLS/HR; Start 05/06/18 at 07:30 Miscellaneous Information (*Rx Drug Level Order Reminder*) VANCO TROUGH 05/07 @ 0,700 ONCE ONCE XX ; Start 05/07/18 at 07:00; Stop 05/07/18 at 07:01 Allergies: Coded Allergies: No Known Allergy (Unverified , 05/05/18) Past Surgical History Past Surgical Hx: appendectomy Social History Alcohol Use: none Smoking Status: Former smoker Drug Use: none Exam/Review of Systems Vital Signs Vitals Vital Signs Date Temp Pulse Resp B/P (MAP) Pulse Ox O2 O2 Flow FiO2 Time Delivery Rate 05/06/18 98.2 73 16 132/79 98 15:53 (96) 05/05/18 Room Air 19:08 05/05/18 2 15:43 Intake and Output 05/05/18 05/05/18 05/06/18 1515:00 23:00 07:00 IntakeIntake Total 600 ml OutputOutput Total 100 ml 800 ml BalanceBalance -100 ml -200 ml Exam Constitutional: alert, oriented, well developed Psych: nl mood/affect Head: normocephalic, atraumatic Eyes: nl conjunctiva, EOMI, nl lids, nl sclera ENMT: nl external ears & nose, nl lips & teeth, mucosa pink and moist Neck: supple, non-tender; No jvd Respiratory: normal air movement; No congested cough Cardiovascular: regular rate and rhythm, nl pulses; No edema Gastrointestinal: soft, non-tender; No distended Musculoskeletal: range of motion (Limited right lower extremity due to pain), swelling (Posterior thigh, induration, no open areas noted), other ( + sensation/warm/cap Refill less than 3 seconds) Extremities: normal pulses Neurological: nl mental status, nl speech, nl strength Skin: nl turgor; No rash or lesions Medications Medications Current Medications Insulin Glargine (Lantus) 20 units DAILY@2000 SC Last administered on 05/05/18at 20:33; Admin Dose 20 UNITS; Start 05/05/18 at 20:00 Insulin Aspart (Novolog Insulin Pen) 5 unit WITH MEALS SC Last administered on 05/06/18at 12:01; Admin Dose 5 UNIT; Start 05/06/18 at 07:55 Insulin Aspart (Novolog Insulin Pen) NOVOLOG *MILD* ALGORITHM WITH MEALS BEDTIME SC Last administered on 05/06/18at 12:01; Admin Dose 4 UNIT; Start 05/05/18 at 21:00 Vancomycin HCl (Vanco Iv Per Pharmacy) VANCOMYCIN PER PHARMACY PER PROTOCOL XX ; Start 05/05/18 at 19:00 Atorvastatin Calcium (Lipitor) 40 mg QHS PO Last administered on 05/05/18at 20:16; Admin Dose 40 MG; Start 05/05/18 at 21:00 Diazepam (Valium) 5 mg BID PRN PO MUSCLE SPASMS; Start 05/05/18 at 19:00 Ibuprofen (Motrin) 600 mg Q6H PRN PO MILD PAIN(1-3)OR ELEVATED TEMP; Start 05/05/18 at 19:00 IV Flush (NS 3 ml) 3 ml PER PROTOCOL IV ; Start 05/05/18 at 19:00 Acetaminophen/ Hydrocodone Bitart ([place] (5/325)) 2 tab Q6H PRN PO SEVERE PAIN LEVEL 7-10 Last administered on 05/06/18at 06:15; Admin Dose 2 TAB; Start 05/05/18 at 19:00 Heparin Sodium (Porcine) (Heparin (5000 Units/1ml)) 5,000 unit Q12 SC Last administered on 05/06/18at 08:21; Admin Dose 5,000 UNIT; Start 05/05/18 at 21:00 Miscellaneous Information 1 ea NOTE XX ; Start 05/05/18 at 19:30 Glucose (Glutose) 15 gm Q15M PRN PO DECREASED GLUCOSE; Start 05/05/18 at 19:30 Glucose (Glutose) 22.5 gm Q15M PRN PO DECREASED GLUCOSE; Start 05/05/18 at 19:30 Dextrose (D50w Syringe) 25 ml Q15M PRN IV DECREASED GLUCOSE; Start 05/05/18 at 19:30 Dextrose (D50w Syringe) 50 ml Q15M PRN IV DECREASED GLUCOSE; Start 05/05/18 at 19:30 Glucagon (Glucagen) 1 mg Q15M PRN IM DECREASED GLUCOSE; Start 05/05/18 at 19:30 Glucose (Glutose) 15 gm Q15M PRN BUCCAL DECREASED GLUCOSE; Start 05/05/18 at 19:30 Vancomycin HCl 1.25 gm/Sodium Chloride 250 ml @ 83.333 mls/ hr Q12H IVPB Last administered on 05/06/18at 08:11; Admin Dose 83.333 MLS/HR; Start 05/06/18 at 08:00 Piperacillin Sod/ Tazobactam Sod 100 ml @ 200 mls/hr Q8 IVPB Last administered on 05/06/18at 14:02; Admin Dose 200 MLS/HR; Start 05/06/18 at 07:30 Miscellaneous Information (*Rx Drug Level Order Reminder*) VANCO TROUGH 05/07 @ 0,700 ONCE ONCE XX ; Start 05/07/18 at 07:00; Stop 05/07/18 at 07:01 ALEXUS ARCHIBALD NP May 06, 2018 16:06
--- NOTE | 2018-05-06 17:38 | CONS ---
DATE OF ADMISSION: 05/05/2018 DATE OF CONSULTATION: 05/06/2018 TYPE OF CONSULTATION: Orthopedic surgical. HISTORY OF PRESENT ILLNESS: The patient is a 47-year-old male with a known history of poorly control led diabetes who was admitted on 05/05/2018 because of the painful swelling involving the posterior a spect of his right thigh. According to the patient, the pain started about 10 days ago without any m emorable trauma or injury and it was getting gradually worse with increasing pain and limit of motion of the right knee. Denies any history of chills. PHYSICAL EXAMINATION: My examination revealed a 47-year-old male who was not in acute distress. He was complaining of pain and swelling and the painful limit of motion of the right knee involving the posterior aspect of the right thigh. Gentle palpation revealed that there is a fusiform hardening in volving the posterior medial aspect of the right thigh along the course of the semimembranosus. He w as not able to extend his right knee fully because of the pain. His WBC count was 9.2 at the time of admission. However, his blood glucose level was way up high near the count of 451. DIAGNOSTIC DATA: CT scan of the right thigh revealed a presence of fusiform collection of fluid insi de the semimembranosus. DIAGNOSTIC IMPRESSION: Intramuscular abscess involving the right semimembranosus. TREATMENT PLAN: 1. Continue IV antibiotics. 2. Incision and drainage of the abscess as soon as he can be medically cleared for surgery. Dictated By: RACHANA DIAMOND MD IK/NTS Conf#: [id number] DID#: [id number] CC: HIWOT AVILES MD; TREVA LUA MD; WARREN LEUNG MD;*End*
[2018-05-06] MEDS: ATORVASTATIN 40 MG TAB PO SCH (20:40)
[2018-05-06] MEDS: INSULIN GLARGINE [LANTus] (100 UNITS/ML) SYG SC SCH (20:44)
[2018-05-06] MEDS ORDERED: INSULIN ASPART [NOVOLOG] 3 ML PEN SC SCH (21:00)
[2018-05-07] VITALS (10 sets, daily range): BP systolic 115–136; BP diastolic 59–81; PULSE 65–92; RESP 16–20
[2018-05-07] MEDS ORDERED: Insulin NOVOLOG SS MODERATE Algorithm(NPO/TPN/ENTERAL FEEDS) SC SCH (05:00)
[2018-05-07] MEDS: SOD CHLORIDE 0.9% 1,000 ML IV SCH ×2 (05:18→17:33)
[2018-05-07] MEDS ORDERED: INSULIN ASPART [NOVOLOG] 3 ML PEN SC SCH ×2 (06:00→09:00)
[2018-05-07] MEDS: PIPER-TAZO 3.375 GM IV (PMX) 100 ML IVPB SCH ×2 (07:08→13:14)
[2018-05-07] MEDS: INSULIN ASPART [NOVOLOG] 3 ML PEN SC SCH ×4 (07:11→17:32)
[2018-05-07] MEDS: HEPARIN 5,000 UNIT/1 ML VIAL SC SCH (08:05)
[2018-05-07] MEDS: VANCOMYCIN 1.25 GM in SOD CHLORIDE 0.9% 250 ML IVPB SCH ×2 (08:05→21:17)
--- NOTE | 2018-05-07 12:43 | PN ---
Date/Time of Note Date/Time of Note DATE: 05/07/18 TIME: 12:39 Assessment/Plan Lines/Catheters IV Catheter Type (from Nrsg): Peripheral IV Rollins in Place (from Nrs): No Assessment/Plan Chief Complaint/Hosp Course 1. Intramuscular abscess in the semimembranosus muscle belly -Antibiotics -Tight glucose control -Incision and drainage per orthopedics 2. Right leg pain: -Pain management -As above 3.Hypochromic anemia -Monitor and transfuse as needed 4. Hyperglycemia: hemoglobin A1c pending; improved -Glucose optimization 5. Transaminitis: -Trend -Consider hep panel 6. Dyslipidemia: -Medical management Thank you. Patient seen and examined in collaboration with Dr. Danny Alarcon. Subjective 24 Hr Interval Summary Blood sugar improved however continues to be elevated. Continues to have tenderness in right leg. No fevers, chills, sob, congested cough, cp, palpitations, santos, dizziness, nausea, vomiting, diarrhea, dysuria. Exam/Review of Systems Vital Signs Vitals Vital Signs Date Temp Pulse Resp B/P (MAP) Pulse Ox O2 O2 Flow FiO2 Time Delivery Rate 05/07/18 98.7 76 16 136/75 97 11:26 (95) 05/05/18 Room Air 19:08 05/05/18 2 15:43 Intake and Output 05/06/18 05/06/18 05/07/18 1515:00 23:00 07:00 IntakeIntake Total 100 ml 900 ml 1090 ml OutputOutput Total 600 ml BalanceBalance 100 ml 300 ml 1090 ml Exam Free Text/Dictation Constitutional: alert, oriented, well developed Psych: nl mood/affect Head: normocephalic, atraumatic Eyes: nl conjunctiva, EOMI, nl lids, nl sclera ENMT: nl external ears & nose, nl lips & teeth, mucosa pink and moist Neck: supple, non-tender; No jvd Respiratory: normal air movement; No congested cough Cardiovascular: regular rate and rhythm, nl pulses; No edema Gastrointestinal: soft, non-tender; No distended Musculoskeletal: range of motion (Limited right lower extremity due to pain), swelling (Posterior thigh, induration, no open areas noted), other ( + sensation/warm/cap Refill less than 3 seconds) Extremities: normal pulses Neurological: nl mental status, nl speech, nl strength Skin: nl turgor; No rash or lesions Results Result Diagram: 05/07/18 1041 05/06/18 0716 ALEXUS ARCHIBALD NP May 07, 2018 12:43
--- NOTE | 2018-05-07 13:51 | PN ---
Date/Time of Note Date/Time of Note DATE: 05/07/18 TIME: 13:48 Assessment/Plan VTE Prophylaxis Risk score (from [facility])>0 risk: 5 SCD applied (from [facility]): No SCD contraindicated: other Pharmacological prophylaxis: heparin Lines/Catheters IV Catheter Type (from [facility]): Peripheral IV Urinary Cath still in place: No Assessment/Plan Assessment/Plan 1. Right semimembranosus muscle belly intramuscular fluid abscess, 2.3x2.4x11 cm, on vancomycin/zosyn, medically clearance for surgery 2. DM, on insulin 3. Dyslipidemia, on lipitor 4. Normocytic anemia, follow up with H/H 4. DVT prophylaxis: heparin, hold heparin for surgery Result Diagram: 05/07/18 1041 05/06/18 0716 Results 24hrs Laboratory Tests Test 05/06/18 16:59 05/06/18 20:37 05/07/18 01:37 05/07/18 05:47 Bedside Glucose 356 H 307 H 277 H 275 H Test 05/07/18 07:07 05/07/18 07:12 05/07/18 09:00 05/07/18 10:41 Bedside Glucose 252 H 233 H White Blood Count 9.4 9.8 Red Blood Count 3.18 L 3.29 L Hemoglobin 8.9 L 9.2 L Hematocrit 27.1 L 28.2 L Mean Corpuscular 85.2 85.7 Volume Mean Corpuscular 28.0 L 28.0 L Hemoglobin Mean Corpuscular 32.8 32.6 Hemoglobin Concent Red Cell Distribution 11.9 11.8 Width Platelet Count 264 272 Mean Platelet Volume 8.9 8.5 Immature Granulocytes 0.500 H 0.500 H % Neutrophils % 73.3 73.3 Lymphocytes % 15.1 15.2 Monocytes % 9.1 8.8 Eosinophils % 1.7 1.9 Basophils % 0.3 0.3 Nucleated Red Blood 0.0 0.0 Cells % Immature Granulocytes 0.050 H 0.050 H # Neutrophils # 6.9 7.2 Lymphocytes # 1.4 1.5 Monocytes # 0.9 0.9 Eosinophils # 0.2 0.2 Basophils # 0.0 0.0 Nucleated Red Blood 0.0 0.0 Cells # Vancomycin Level 15.1 Trough Test 05/07/18 12:07 05/07/18 12:43 Lab Scanned Report REFERENCE LAB Bedside Glucose 197 Subjective 24 Hr Interval Summary Free Text/Dictation fever Exam/Review of Systems Vital Signs Vitals Vital Signs Date Temp Pulse Resp B/P (MAP) Pulse Ox O2 O2 Flow FiO2 Time Delivery Rate 05/07/18 78 13:09 05/07/18 98.7 16 136/75 97 11:26 (95) 05/05/18 Room Air 19:08 05/05/18 2 15:43 Intake and Output 05/06/18 05/06/18 05/07/18 1515:00 23:00 07:00 IntakeIntake Total 100 ml 900 ml 1090 ml OutputOutput Total 600 ml BalanceBalance 100 ml 300 ml 1090 ml Exam Constitutional: alert, oriented, well developed Psych: no complaints, nl mood/affect Head: normocephalic, atraumatic Eyes: nl conjunctiva, EOMI, nl lids, nl sclera, PERRL ENMT: nl external ears & nose, nl lips & teeth, nl nasal mucosa & septum Neck: supple, non-tender Respiratory: clear to auscultation, normal air movement; No congested cough, No crackles/rales, No diminished breath sounds, No intercostal retraction, No labored breathing, No respirations, No tactile fremitus, No wheezing, No other Cardiovascular: regular rate and rhythm, nl pulses; No bruits, No diastolic murmur, No edema, No gallop, No irregular rhythm, No jugular venous distention (JVD), No murmurs/extra sounds, No rub, No systolic murmur, No S3, No S4, No other Gastrointestinal: soft, nl liver, spleen, non-tender; No ascites, No bowel sounds, No distended, No firm, No hepatomegaly, No mass, No rebound or guarding, No splenomegaly, No surgical scars, No tender, No other Musculoskeletal: other (right lower thigh mass with tenderness) Extremities: No normal pulses, No calf tenderness, No cyanosis, No clubbing, No pitting pedal edema, No other Neurological: WELDER FABRICATOR II-XII intact, nl mental status, nl speech, nl strength Skin: nl turgor Lymph: nl lymph nodes Medications Medications Current Medications Insulin Aspart (Novolog Insulin Pen) 5 unit WITH MEALS SC Last administered on 05/06/18at 17:06; Admin Dose 5 UNIT; Start 05/06/18 at 07:55; Status Hold Vancomycin HCl (Vanco Iv Per Pharmacy) VANCOMYCIN PER PHARMACY PER PROTOCOL XX ; Start 05/05/18 at 19:00 Atorvastatin Calcium (Lipitor) 40 mg QHS PO Last administered on 05/06/18at 20:40; Admin Dose 40 MG; Start 05/05/18 at 21:00 Diazepam (Valium) 5 mg BID PRN PO MUSCLE SPASMS; Start 05/05/18 at 19:00 Ibuprofen (Motrin) 600 mg Q6H PRN PO MILD PAIN(1-3)OR ELEVATED TEMP; Start 05/05/18 at 19:00 IV Flush (NS 3 ml) 3 ml PER PROTOCOL IV ; Start 05/05/18 at 19:00 Acetaminophen/ Hydrocodone Bitart ([place] (5/325)) 2 tab Q6H PRN PO SEVERE PAIN LEVEL 7-10 Last administered on 05/06/18at 15:58; Admin Dose 2 TAB; Start 05/05/18 at 19:00 Heparin Sodium (Porcine) (Heparin (5000 Units/1ml)) 5,000 unit Q12 SC Last administered on 05/06/18at 20:44; Admin Dose 5,000 UNIT; Start 05/05/18 at 21:00 Miscellaneous Information 1 ea NOTE XX ; Start 05/05/18 at 19:30 Glucose (Glutose) 15 gm Q15M PRN PO DECREASED GLUCOSE; Start 05/05/18 at 19:30 Glucose (Glutose) 22.5 gm Q15M PRN PO DECREASED GLUCOSE; Start 05/05/18 at 19:30 Dextrose (D50w Syringe) 25 ml Q15M PRN IV DECREASED GLUCOSE; Start 05/05/18 at 19:30 Dextrose (D50w Syringe) 50 ml Q15M PRN IV DECREASED GLUCOSE; Start 05/05/18 at 19:30 Glucagon (Glucagen) 1 mg Q15M PRN IM DECREASED GLUCOSE; Start 05/05/18 at 19:30 Glucose (Glutose) 15 gm Q15M PRN BUCCAL DECREASED GLUCOSE; Start 05/05/18 at 19:30 Vancomycin HCl 1.25 gm/Sodium Chloride 250 ml @ 83.333 mls/ hr Q12H IVPB Last administered on 05/07/18at 08:05; Admin Dose 83.333 MLS/HR; Start 05/06/18 at 08:00 Piperacillin Sod/ Tazobactam Sod 100 ml @ 200 mls/hr Q8 IVPB Last administered on 05/07/18at 13:14; Admin Dose 200 MLS/HR; Start 05/06/18 at 07:30 Insulin Glargine (Lantus) 28 units DAILY@2000 SC Last administered on 05/06/18at 20:44; Admin Dose 28 UNITS; Start 05/06/18 at 20:00 Sodium Chloride 1,000 ml @ 70 mls/hr [id number] IV Last administered on 05/07/18at 05:18; Admin Dose 70 MLS/HR; Start 05/07/18 at 03:30 Insulin Aspart (Novolog Insulin Pen) NOVOLOG *MILD* ALGORI... Q4 SC Last administered on 05/07/18at 12:50; Admin Dose 2 UNIT; Start 05/07/18 at 06:30 WARREN LEUNG MD May 07, 2018 13:51
[2018-05-07] MEDS: ATORVASTATIN 40 MG TAB PO SCH (20:40)
[2018-05-07] MEDS: INSULIN GLARGINE [LANTus] (100 UNITS/ML) SYG SC SCH (20:44)
[2018-05-08] VITALS (23 sets, daily range): BP systolic 110–139; BP diastolic 58–78; PULSE 60–77; RESP 8–82
[2018-05-08] MEDS: PIPER-TAZO 3.375 GM IV (PMX) 100 ML IVPB SCH ×4 (00:48→21:34)
[2018-05-08] MEDS: INSULIN ASPART [NOVOLOG] 3 ML PEN SC SCH ×2 (00:53→06:41)
[2018-05-08] MEDS: SOD CHLORIDE 0.9% 1,000 ML IV SCH ×2 (06:30→17:46)
[2018-05-08] MEDS ORDERED: morphine 2 MG INJ IV STA (06:43)
[2018-05-08] MEDS ORDERED: morphine SULFATE/PF (2 MG/2 ML) SYG IV STA (06:53)
[2018-05-08] MEDS: VANCOMYCIN 1.25 GM in SOD CHLORIDE 0.9% 250 ML IVPB SCH (08:45)
--- NOTE | 2018-05-08 09:59 | PN ---
Date/Time of Note Date/Time of Note DATE: 05/08/18 TIME: 09:56 Assessment/Plan Lines/Catheters IV Catheter Type (from Nrs): Peripheral IV Rollins in Place (from Nrs): No Assessment/Plan Chief Complaint/Hosp Course 1. Intramuscular abscess in the semimembranosus muscle belly -Antibiotics -Tight glucose control -Incision and drainage per orthopedics> pending today 2. Right leg pain: -Pain management -As above 3.Hypochromic anemia -Monitor and transfuse as needed 4. Hyperglycemia: hemoglobin A1c pending; improved -Continue glucose optimization 5. Transaminitis: -Trend -Consider hep panel 6. Dyslipidemia: -Medical management Thank you. Patient seen and examined in collaboration with Dr. Danny Alarcon. Subjective 24 Hr Interval Summary I&D of right posterior thigh abscess pending today. Blood sugar continues to be elevated but improved. Tenderness and pain persistent in the posterior thigh. Low-grade temp. No chills, sob, congested cough, cp, palpitations, santos, dizziness, nausea, vomiting, diarrhea, dysuria. Exam/Review of Systems Vital Signs Vitals Vital Signs Date Temp Pulse Resp B/P (MAP) Pulse Ox O2 O2 Flow FiO2 Time Delivery Rate 05/08/18 98.0 70 20 132/77 94 Room Air 11:23 (95) 05/05/18 2 15:43 Intake and Output 05/07/18 05/07/18 05/08/18 1515:00 23:00 07:00 IntakeIntake Total 170 ml 500 ml 1850 ml OutputOutput Total 975 ml BalanceBalance 170 ml 500 ml 875 ml Exam Free Text/Dictation Constitutional: alert, oriented, well developed Psych: nl mood/affect Head: normocephalic, atraumatic Eyes: nl conjunctiva, EOMI, nl lids, nl sclera ENMT: nl external ears & nose, nl lips & teeth, mucosa pink and moist Neck: supple, non-tender; No jvd Respiratory: normal air movement; No congested cough Cardiovascular: regular rate and rhythm, nl pulses; No edema Gastrointestinal: soft, non-tender; No distended Musculoskeletal: range of motion (Limited right lower extremity due to pain), swelling (Posterior thigh, induration, no open areas noted), other ( + s ensation/warm/cap Refill less than 3 seconds) Extremities: normal pulses Neurological: nl mental status, nl speech, nl strength Skin: nl turgor; No rash or lesions Results Result Diagram: 05/08/1860605/08/1807 ALEXUS ARCHIBALD NP May 08, 2018 09:59
[2018-05-08] MEDS ORDERED: INSULIN ASPART [NOVOLOG] 3 ML PEN SC SCH ×2 (13:00→21:00)
[2018-05-08] MEDS ORDERED: BACITRACIN 50000 UNITS INJ ONE (13:38)
[2018-05-08] MEDS ORDERED: POLYMYXIN B 500000 UNIT INJ ONE (13:42)
--- NOTE | 2018-05-08 14:11 | PREAC ---
Date/Time of Note Date/Time of Note DATE: 05/08/18 TIME: 14:08 Anesthesia Eval and Record Evaluation Time Pre-Procedure Interview DATE: 05/08/18 TIME: 14:08 Age 47 Sex male NPO: 8 hrs Preoperative diagnosis Right Leg Abscess/cellulitis Planned procedure I&D of posterior right Leg Past Medical History Past Medical History: Includes Cardio: HTN, Dyslipidemia Endo: Diabetes Renal: CKD Heme: Anemia Surgery & Anesthesia Issues No known issue Meds Anticoagulation: No Beta Georgi within 24 hr: No Reason Beta Georgi not given: Pt. not on B-Georgi Active Scripts Sulfamethoxazole/Trimethoprim* (Bactrim Ds* Tablet) 1 Each Tablet, 1 TAB PO BID, #14 TAB Prov:LILA BROWN PA-C 04/30/18 Cephalexin* (Keflex*) 500 Mg Capsule, 500 MG PO QID for 7 Days, CAP Prov:LILA BROWNC 04/30/18 Ibuprofen* (Motrin*) 600 Mg Tab, 600 MG PO Q6H PRN for PAIN AND OR ELEVATED TEMP, #30 TAB Prov:LILA BROWNC 04/30/18 Diazepam* (Valium*) 5 Mg Tablet, 5 MG PO BID PRN for MUSCLE SPASMS, #12 TAB Prov:LILA BROWNC 04/30/18 Reported Medications Insulin Lispro (Humalog Kwikpen) 200 Unit/1 Ml Insuln.pen, 12 UNIT SQ QAM, EA 05/05/18 Insulin Glargine,Hum.rec.anlog (Basaglar Kwikpen U-100) 100 Unit/1 Ml Insuln.pen, 26 UNIT SC QPM, EA 05/05/18 Cholecalciferol (Vitamin D3) (Vitamin D-3) 2,000 Unit Tablet, 2000 UNIT PO DAILY, TAB 05/05/18 Atorvastatin* (Atorvastatin*) 40 Mg Tablet, 40 MG PO QHS, #30 TAB 05/05/18 Aspirin* (Aspirin* EC) 81 Mg Tablet.dr, 81 MG PO DAILY, TAB 05/05/18 Lisinopril* (Lisinopril*) 10 Mg Tablet, 10 MG PO DAILY, #30 TAB 05/05/18 Discontinued Reported Medications Lisinopril* (Lisinopril*) 10 Mg Tablet, 10 MG PO DAILY, #30 TAB 03/03/17 Atorvastatin Calcium* (Atorvastatin Calcium*) 20 Mg Tablet, 20 MG PO QHS, #30 TAB 03/03/17 Glimepiride* (Glimepiride*) 1 Mg Tablet, 1 MG PO WITH BREAKFAST, TAB 03/03/17 Metformin Hcl* (Metformin Hcl*) 1,000 Mg Tablet, 1000 MG PO WITH BREAKFAST DINNE, #30 TAB 03/03/17 Aspirin* (Aspirin* EC) 81 Mg Tablet.dr, 81 MG PO DAILY, TAB 03/03/17 Discontinued Scripts [Vancomycin Iv Per Pharmacy] 1 EA EACH No Conflict Check, 0 EA XX .PER PROTOCOL for 7 Days Prov:LACYDARREN 03/10/17 Levofloxacin* (Levaquin*) 500 Mg Tablet, 500 MG PO DAILY@06 for 7 Days, #7 TAB Prov:DARREN HOUSE 03/10/17 Lactobacillus Rhamnosus GG (Culturelle) 1 Each Capsule, 1 CAP PO BID for 30 Days, #60 CAP Prov:LACYDARREN 03/10/17 Insulin Glargine* (Lantus*) 100 Unit/Ml Soln, 26 UNIT SC DAILY@08 for 30 Days Prov:LACYDARREN 03/10/17 Insulin Aspart* (Novolog Insulin Pen*) 100 Unit/Ml Soln, 9 UNIT SC WITH MEALS for 30 Days Prov:DARREN HOUSE 03/10/17 Cetirizine Hcl* (Zyrtec*) 10 Mg Capsule, 10 MG PO DAILY, #10 TAB.CHEW Prov:DIALLO LAW PA-C 04/09/16 Current Medications Insulin Aspart (Novolog Insulin Pen) 5 unit WITH MEALS SC Last administered on 05/06/18at 17:06; Admin Dose 5 UNIT; Start 05/06/18 at 07:55; Status Hold Vancomycin HCl (Vanco Iv Per Pharmacy) VANCOMYCIN PER PHARMACY PER PROTOCOL XX ; Start 05/05/18 at 19:00 Atorvastatin Calcium (Lipitor) 40 mg QHS PO Last administered on 05/07/18at 20:40; Admin Dose 40 MG; Start 05/05/18 at 21:00 Diazepam (Valium) 5 mg BID PRN PO MUSCLE SPASMS; Start 05/05/18 at 19:00 Ibuprofen (Motrin) 600 mg Q6H PRN PO MILD PAIN(1-3)OR ELEVATED TEMP; Start 05/05/18 at 19:00 IV Flush (NS 3 ml) 3 ml PER PROTOCOL IV ; Start 05/05/18 at 19:00 Acetaminophen/ Hydrocodone Bitart ([place] (5/325)) 2 tab Q6H PRN PO SEVERE PAIN LEVEL 7-10 Last administered on 05/06/18at 15:58; Admin Dose 2 TAB; Start 05/05/18 at 19:00 Miscellaneous Information 1 ea NOTE XX ; Start 05/05/18 at 19:30 Glucose (Glutose) 15 gm Q15M PRN PO DECREASED GLUCOSE; Start 05/05/18 at 19:30 Glucose (Glutose) 22.5 gm Q15M PRN PO DECREASED GLUCOSE; Start 05/05/18 at 19:30 Dextrose (D50w Syringe) 25 ml Q15M PRN IV DECREASED GLUCOSE; Start 05/05/18 at 19:30 Dextrose (D50w Syringe) 50 ml Q15M PRN IV DECREASED GLUCOSE; Start 05/05/18 at 19:30 Glucagon (Glucagen) 1 mg Q15M PRN IM DECREASED GLUCOSE; Start 05/05/18 at 19:30 Glucose (Glutose) 15 gm Q15M PRN BUCCAL DECREASED GLUCOSE; Start 05/05/18 at 19:30 Piperacillin Sod/ Tazobactam Sod 100 ml @ 200 mls/hr Q8 IVPB Last administered on 05/08/18at 06:30; Admin Dose 200 MLS/HR; Start 05/06/18 at 07:30 Insulin Glargine (Lantus) 28 units DAILY@2000 SC Last administered on 05/07/18at 20:44; Admin Dose 28 UNITS; Start 05/06/18 at 20:00 Sodium Chloride 1,000 ml @ 70 mls/hr [id number] IV Last administered on 05/08/18at 06:30; Admin Dose 70 MLS/HR; Start 05/07/18 at 03:30 Insulin Aspart (Novolog Insulin Pen) NOVOLOG *MILD* ALGORI... Q4 SC ; Start 05/08/18 at 13:00 Vancomycin/Sodium Chloride 250 ml @ 125 mls/hr Q12H IVPB ; Start 05/08/18 at 23:00 Meds reviewed: Yes Allergies Coded Allergies: No Known Allergy (Unverified , 05/05/18) Allergies Reviewed: Yes Labs/Studies Labs Reviewed: Reviewed by anesthesiologist Result Diagram: 05/08/18 0607 05/08/18 0607 Laboratory Tests 05/08/18 06:07 test: N/A Studies: ECG (n/a), CXR (n/a) Pre-procedure Exam Last vitals Vital Signs Date Temp Pulse Resp B/P (MAP) Pulse Ox O2 O2 Flow FiO2 Time Delivery Rate 05/08/18 70 12:00 05/08/18 98.0 20 132/77 94 Room Air 11:23 (95) 05/05/18 2 15:43 Airway: Adequate mouth opening, Adequate thyromental dist Mallampati: Mallampati II Teeth: Normal Lung: Normal Heart: Normal ASA Physical Status ASA physical status: 3 Emergency: E Planned Anesthetic General/MAC: LMA Planned Pain Management Parenteral pain med Pre-operative Attestations Prior to commencing anesthesia and surgery, the patient was re-evaluated, there was verification of: *The patient's identity *The results of appropriate recent lab work and preoperative vital signs *The above evaluation not changing prior to induction *Anesthetic plan, risk benefits, alternative and complications discussed with patient/family; questions answered; patient/family understands, accepts and wishes to proceed. TASHI SAMUEL MD May 08, 2018 14:11
[2018-05-08] MEDS ORDERED: PROPOFOL 20 ML ONE (14:15)
[2018-05-08] MEDS ORDERED: MIDAZOLAM 1 MG/ML 2 ML INJ ONE (14:15)
[2018-05-08] MEDS ORDERED: HYDROmorphONE 1 MG/5 ML IV SYRINGE IV PRN ×3 (14:30)
[2018-05-08] MEDS ORDERED: DIPHENHYDRAMINE 50 MG INJ IV PRN (14:30)
[2018-05-08] MEDS ORDERED: METOCLOPRAMIDE 10 MG INJ IV PRN (14:30)
[2018-05-08] MEDS ORDERED: ONDANSETRON 4 MG INJ IV PRN (14:30)
[2018-05-08] MEDS ORDERED: FENTAnyl 50 MCG/ML VIAL IV PRN ×3 (14:30)
[2018-05-08] MEDS ORDERED: hydrALAzine 20 MG INJ IV PRN (14:30)
[2018-05-08] MEDS ORDERED: MEPERIDINE 25 MG INJ IV PRN (14:30)
[2018-05-08] MEDS ORDERED: EPHEDrine SULFATE 50 MG/5 ML SYG IV PRN (14:30)
[2018-05-08] MEDS ORDERED: LABETALOL HCL 20MG INJ IV PRN (14:30)
[2018-05-08] MEDS ORDERED: OXYCODONE/ACETAMINOPHEN (5/325) TAB PO PRN ×2 (14:30)
[2018-05-08] MEDS ORDERED: CEFAZOLIN 1 GM INJ ONE (15:22)
[2018-05-08] MEDS ORDERED: ONDANSETRON 4 MG INJ ONE (15:22)
[2018-05-08] MEDS ORDERED: KETOROLAC 30 MG INJ ONE (15:23)
[2018-05-08] MEDS ORDERED: DEXAMETHASONE 4 MG/ML 5 ML INJ ONE (15:23)
[2018-05-08] MEDS ORDERED: METOCLOPRAMIDE 10 MG INJ ONE (15:23)
--- NOTE | 2018-05-08 15:55 | PAC ---
Date/Time of Note Date/Time of Note DATE: 05/08/18 TIME: 15:54 Post-Anesthesia Notes Post-Anesthesia Note Last documented vital signs Vital Signs Date Temp Pulse Resp B/P (MAP) Pulse Ox O2 O2 Flow FiO2 Time Delivery Rate 05/08/18 99.1 70 16 103/55 73 face mask 8 L 16:00 (74) 05/08/18 98.0 20 132/77 94 Room Air 11:23 (95) 05/05/18 2 15:43 Activity: WNL Respiratory function: WNL Cardiovascular function: WNL Mental status: Baseline Pain reasonably controlled: Yes Hydration appropriate: Yes Nausea/Vomiting absent: Yes TASHI SAMUEL MD May 08, 2018 15:55
[2018-05-08] MEDS ORDERED: HYDROCODONE/APAP (5/325) TAB PO PRN (16:00)
[2018-05-08] MEDS ORDERED: NACL 0.9% 3 ML SYG IV SCH (16:00)
--- NOTE | 2018-05-08 16:12 | HPN ---
Date/Time of Note Date/Time of Note DATE: 05/08/18 TIME: 16:12 Interval H&P Admission Note Pt. seen H&P reviewed: No system changes OCHOA DIAMOND MD May 08, 2018 16:12
--- NOTE | 2018-05-08 16:18 | SIPON ---
Date/Time of Note Date/Time of Note DATE: 05/08/18 TIME: 16:13 Operative Report Preoperative Diagnosis abcess rt. thigh Postoperative Diagnosis same Operation/Procedure Performed I & D of abcess Rt. thigh Surgeon see signature line digital assistant none Anesthesia: general Estimated blood loss: 10 - 50 ml's Transfusion Required none Specimen none Grafts/Implants none Complications none OCHOA DIAMOND MD May 08, 2018 16:18
[2018-05-08] MEDS ORDERED: morphine SULFATE/PF (2 MG/2 ML) SYG IV PRN (16:30)
--- NOTE | 2018-05-08 19:10 | PN ---
DATE: 05/08/2018 SUBJECTIVE: The patient continues to have pain in the right thigh, planned for surgical drainage of abscess today at 2:00 p.m. per the patient. PHYSICAL EXAMINATION: VITAL SIGNS: Temperature 98.0, pulse 70, respirations 20, blood pressure 132/77, saturations 94% on room air. GENERAL: A 47-year-old male, currently in no distress. HEENT: Head is normocephalic. Pupils are equal and reactive. Mucous membranes are moist. Posterio r pharynx is clear of erythema or exudate. NECK: Supple. CHEST: Clear. CARDIOVASCULAR: S1, S2. No murmurs. ABDOMEN: Soft, nontender, nondistended. Normoactive bowel sounds. EXTREMITIES: There is no lower extremity edema. Palpation of his posterior part of his right thigh is exquisitely tender. The patient is able to flex his knee and moves the leg passively and actively without assistance. LABORATORY VALUES: His creatinine today is 1.6. Glucose levels are still in the 200s. Hematology: His hemoglobin did drop from 9.2 to 8.7. White count is normal. He does have some hypochromasia, p latelet counts are normal. MICROBIOLOGY: Blood cultures remain negative. IMAGING STUDIES: The CT of his lower extremity showed intramuscular abscess in the semimembranous mu scle belly measuring 11 x 2. Lower extremity venous Dopplers did not show any DVT. IMPRESSION: A 47-year-old male who had presented to the emergency room with an acute right thigh hermelinda n and swelling, managed for the followin. Intramuscular abscess in right thigh. 2. Diabetes mellitus with suboptimal control. 3. Hypertension with poor control. 4. Dyslipidemia. 5. New onset acute kidney injury, rule out chronic kidney disease. 6. History of right foot toe amputation. PLAN: Continue antibiotics. We will commence IV fluid hydration. Consider discontinuing vancomycin due to renal function for now. Continue supportive care and pain control. For intraoperative absce ss drainage today at 2:00 p.m. Continue current insulin regimen. For prophylaxis, the patient is on Lovenox. Dictated By: GLENN BOWERS MD BA/NTS Conf#: [id number] DID#: [id number] CC: HIWOT AVILES MD; TREVA LUA MD; WARREN LEUNG MD;*EndCC*
[2018-05-08] MEDS: ATORVASTATIN 40 MG TAB PO SCH (20:22)
[2018-05-08] MEDS: Insulin NOVOLOG SS MILD Algorithm (SS with meals and bedtime) SC SCH (20:31)
[2018-05-08] MEDS: INSULIN GLARGINE [LANTus] (100 UNITS/ML) SYG SC SCH (20:31)
[2018-05-08] MEDS ORDERED: VANCOMYCIN 750 MG (PMX) 250 ML IVPB SCH (23:00)
[2018-05-08] MEDS ORDERED: morphine LIQ (10 MG/5 ML) CUP PO PRN (23:00)
[2018-05-09] VITALS (14 sets, daily range): BP systolic 112–155; BP diastolic 61–83; PULSE 48–75; RESP 17–20
[2018-05-09] MEDS: CEFAZOLIN 1 GM/50 ML (PMX) 50 ML IVPB SCH ×3 (01:03→16:14)
[2018-05-09] MEDS: SOD CHLORIDE 0.9% 1,000 ML IV SCH ×4 (01:58→19:37)
[2018-05-09] MEDS: ACCUCHECK AT 2AM (Patients on SS coverage) XX SCH (02:00)
[2018-05-09] MEDS ORDERED: INSULIN ASPART [NOVOLOG] 3 ML PEN SC ONE ×2 (02:57→21:12)
[2018-05-09] MEDS: PIPER-TAZO 3.375 GM IV (PMX) 100 ML IVPB SCH (05:52)
[2018-05-09] MEDS: Insulin NOVOLOG SS MILD Algorithm (SS with meals and bedtime) SC SCH ×2 (07:57→11:13)
[2018-05-09] MEDS ORDERED: ENOXAPARIN 40 MG/0.4 ML SYG SC SCH (09:00)
[2018-05-09] MEDS ORDERED: hydrALAzine 20 MG INJ IV PRN (11:30)
[2018-05-09] MEDS: INSULIN ASPART [NOVOLOG] 3 ML PEN SC SCH ×3 (11:36→21:30)
--- NOTE | 2018-05-09 11:39 | PN ---
Date/Time of Note Date/Time of Note DATE: 05/09/18 TIME: 11:29 Assessment/Plan VTE Prophylaxis Risk score (from Ns)>0 risk: 6 SCD applied (from Ns): Yes Pharmacological prophylaxis: LMWH Lines/Catheters IV Catheter Type (from Nrs): Peripheral IV Urinary Cath still in place: No Assessment/Plan Result Diagram: 05/08/18 0607 05/09/18 0929 Results 24hrs Laboratory Tests Test 05/08/18 12:15 05/08/18 15:55 05/08/18 17:30 05/08/18 20:19 Bedside Glucose 181 149 152 278 H Test 05/09/18 02:17 05/09/18 05:42 05/09/18 07:48 05/09/18 09:29 Bedside Glucose 391 H 411 *H Lab Scanned BLOOD TRANSFUSIO Report N Blood Urea 37 H Nitrogen Creatinine 2.03 H Test 05/09/18 11:08 Bedside Glucose 369 H Subjective 24 Hr Interval Summary Free Text/Dictation Subjective: feels well, no new issues Objective: GENERAL: A 47-year-old male, currently in no distress. HEENT: Head is normocephalic. Pupils are equal and reactive. Mucous membranes are moist. Posterior pharynx is clear of erythema or exudate. NECK: Supple. CHEST: Clear. CARDIOVASCULAR: S1, S2. No murmurs. ABDOMEN: Soft, nontender, nondistended. Normoactive bowel sounds. EXTREMITIES: There is no lower extremity edema. R thigh in clean and dry dressing. The patient is able to flex his knee and moves the leg passively and actively without assistance. Assessment and Plan: A 47-year-old male who had presented to the emergency room with an acute right thigh pain and swelling, managed for the followin. Intramuscular abscess in right thigh. -s/p drainage by ortho 05/08/18 -f/u final cultures -continue wound dressing -ID consult to help titrate abx 2. Diabetes mellitus with suboptimal control. -DM educator recommends checking C-peptide to properly define type -resume premeal novolog and titrate for optimization -hold off on adding other agent for now in view of renal failure -further interventions per course 3. Hypertension with suboptimal control. - Lisinopril on hold for renal failure, use hydralazine PRN for now, 4. New onset renal insufficiency -likely ATN from Vanco -d/c Vanco -Nephro consult, Renal USS, UA -continue IVF NS -Renally dose all meds. Serial labs. titrate as neccesary 5. Dyslipidemia. -continue home statin 6. Transaminitis -?transient, trend, Hepatitis profile 7. History of right foot toe amputation. Dispo: -Needs optimization of glucose control, nephro consult Exam/Review of Systems Vital Signs Vitals Vital Signs Date Temp Pulse Resp B/P (MAP) Pulse Ox O2 O2 Flow FiO2 Time Delivery Rate 05/09/18 58 08:06 05/09/18 97.7 18 140/81 98 Room Air 07:45 (100) 05/05/18 2 15:43 Intake and Output 05/08/18 05/08/18 05/09/18 1515:00 23:00 07:00 IntakeIntake Total 1500 ml 600 ml OutputOutput Total 20 ml 1400 ml BalanceBalance 1480 ml -800 ml Medications Medications Current Medications Atorvastatin Calcium (Lipitor) 40 mg QHS PO Last administered on 05/08/18at 20:22; Admin Dose 40 MG; Start 05/05/18 at 21:00 Diazepam (Valium) 5 mg BID PRN PO MUSCLE SPASMS; Start 05/05/18 at 19:00 IV Flush (NS 3 ml) 3 ml PER PROTOCOL IV ; Start 05/05/18 at 19:00 Acetaminophen/ Hydrocodone Bitart ([place] (5/325)) 2 tab Q6H PRN PO SEVERE PAIN LEVEL 7-10 Last administered on 05/06/18at 15:58; Admin Dose 2 TAB; Start 05/05/18 at 19:00 Miscellaneous Information 1 ea NOTE XX ; Start 05/05/18 at 19:30 Glucose (Glutose) 15 gm Q15M PRN PO DECREASED GLUCOSE; Start 05/05/18 at 19:30 Glucose (Glutose) 22.5 gm Q15M PRN PO DECREASED GLUCOSE; Start 05/05/18 at 19:30 Dextrose (D50w Syringe) 25 ml Q15M PRN IV DECREASED GLUCOSE; Start 05/05/18 at 19:30 Dextrose (D50w Syringe) 50 ml Q15M PRN IV DECREASED GLUCOSE; Start 05/05/18 at 19:30 Glucagon (Glucagen) 1 mg Q15M PRN IM DECREASED GLUCOSE; Start 05/05/18 at 19:30 Glucose (Glutose) 15 gm Q15M PRN BUCCAL DECREASED GLUCOSE; Start 05/05/18 at 19:30 Cefazolin Sodium 50 ml @ 100 mls/hr Q8H IVPB Last administered on 05/09/18at 08:11; Admin Dose 100 MLS/HR; Start 05/09/18 at 00:00; Stop 05/09/18 at 16:29 IV Flush (NS 3 ml) 3 ml PER PROTOCOL IV ; Start 05/08/18 at 16:00 Sodium Chloride 1,000 ml @ 125 mls/hr Q8H IV Last administered on 05/09/18at 07:40; Admin Dose 100 MLS/HR; Start 05/08/18 at 15:58 Acetaminophen/ Hydrocodone Bitart ([place] (5/325)) 1 tab Q3H PRN PO MODERATE PAIN LEVEL 4-6; Start 05/08/18 at 16:00 Diagnostic Test (Pha) (Accu-Chek) 1 ea 02 XX ; Start 05/09/18 at 02:00 Morphine Sulfate (morphine) 6 mg Q4H PRN PO SEVERE PAIN LEVEL 7-10; Start 02/14 at 23:00 Insulin Aspart (Novolog Insulin Pen) 8 unit WITH MEALS SC ; Start 05/09/18 at 11:50 GLENN BOWERS May 09, 2018 11:39
--- NOTE | 2018-05-09 12:52 | PN ---
Date/Time of Note Date/Time of Note DATE: 05/09/18 TIME: 12:47 Assessment/Plan Lines/Catheters IV Catheter Type (from Nrsg): Peripheral IV Rollins in Place (from Nrs): No Assessment/Plan Chief Complaint/Hosp Course 1. Intramuscular abscess in the semimembranosus muscle belly; s/p Incision and drainage per orthopedics -Antibiotics -Tight glucose control -postop care per ortho. Will sign off at this point. Thank you for allowing us to participate in the care of Mr. Parker. 2. Right leg pain: -Pain management -As above 3.Hypochromic anemia -Monitor and transfuse as needed 4. Hyperglycemia: hemoglobin A1c pending; improved -Continue glucose optimization 5. Transaminitis: -Trend -Consider hep panel 6. Dyslipidemia: -Medical management Thank you. Patient seen and examined in collaboration with Dr. Danny Alarcon. Subjective 24 Hr Interval Summary Feels well. S/p I&D of thigh abscess. No fevers, chills, sob, congested cough, cp, palpitations, santos, dizziness, n/v/d/dysuria. Exam/Review of Systems Vital Signs Vitals Vital Signs Date Temp Pulse Resp B/P (MAP) Pulse Ox O2 O2 Flow FiO2 Time Delivery Rate 05/09/18 97.8 70 18 135/78 98 Room Air 12:17 (97) 05/05/18 2 15:43 Intake and Output 05/08/18 05/08/18 05/09/18 1515:00 23:00 07:00 IntakeIntake Total 1500 ml 600 ml OutputOutput Total 20 ml 1400 ml BalanceBalance 1480 ml -800 ml Exam Free Text/Dictation Constitutional: alert, oriented, well developed Psych: nl mood/affect Head: normocephalic, atraumatic Eyes: nl conjunctiva, EOMI, nl lids, nl sclera ENMT: nl external ears & nose, nl lips & teeth, mucosa pink and moist Neck: supple, non-tender; No jvd Respiratory: normal air movement; No congested cough Cardiovascular: regular rate and rhythm, nl pulses; No edema Gastrointestinal: soft, non-tender; No distended Musculoskeletal: range of motion (Limited right lower extremity due to pain), swelling (Posterior thigh, induration, no open areas noted), other (+ sensation/warm/cap Refill less than 3 seconds)tigh wrapped in niall bandage Extremities: normal pulses Neurological: nl mental status, nl speech, nl strength Skin: nl turgor; No rash or lesions Results Result Diagram: 05/08/18 0607 05/09/18 0929 ALEXUS ARCHIBALD NP May 09, 2018 12:51
--- NOTE | 2018-05-09 12:54 | CONS ---
DATE OF ADMISSION: 05/05/2018 DATE OF CONSULTATION: 05/09/2018 TYPE OF CONSULTATION: Infectious disease. REASON FOR CONSULTATION: Antibiotic management. HISTORY OF PRESENT ILLNESS: Sarwat Parker is a 47-year-old male who was seen in the emergency room on the 05/05/2018 with right leg pain. He presented to the ER from the [facility] enter with acute right leg pain and swelling of 5 days' duration. He did not have any fever or chill s. He does not smoke or drink. His past problems include: 1. Adult-onset diabetes. 2. Hypertension. 3. Dyslipidemia. 4. Status post appendectomy. 5. Status post right 4th toe amputation. 6. He also had right 1st toe removal. On admission, he had right lower extremity distally posterior thigh erythema which is warm to the marty ch, minimal calf tenderness. On admission, his white count was 9.2, H and H 11.7 and 34.2, platelet count 287,000. BUN and creatinine is 23/1.21. Glucose was 451. The patient was started on vancomyc in and Zosyn. Chest x-ray showed possible mild patchy right lower lobe infiltrate versus atelectasis . An ultrasound of the lower extremity showed no sonographic evidence of deep vein thrombophlebitis, soft tissue swelling in the right posterior mid to lower thigh, no fluid collection. HOSPITAL COURSE: The patient was seen by Dr. Chen. He felt that he had sepsis from skin and soft tissue infection. No clear abscess was seen. He wanted to perform a CT of the leg with contrast. A lower extremity CT scan shows findings compatible with an intramuscular abscess in the semimembrano delbert muscle belly that was described as 2.3 x 2.4 cm in cross section and approximately 11 cm in lengt h. The caudal extent was approximately 5 cm above the joint line of the knee. There is subcutaneous edema overlying the region of the abscess. The chest x-ray was already reviewed. Blood cultures santos ve been negative. The patient was seen by a number of physicians. On the 05/08/2018, he was seen by Dr. Ty Crandall, who I and D'd abscess of the right thigh. He had incision and drainage of the right thigh abscess. For now is good, we will continue him on antibiotic therapy. His white count today i s 8.1. H and H is 8.7 and 26.6, platelet count 274,000. BUN and creatinine is 37/2.03. The patient is with intramuscular abscess of the right thigh, new onset of renal insufficiency. PAST MEDICAL HISTORY: Operations as outlined. FAMILY HISTORY: Noncontributory. SOCIAL HISTORY: Does not smoke, drink or abuse drugs. ALLERGIES: NONE TO PENICILLIN, SULFA OR FOODS. MEDICATIONS: Per chart. REVIEW OF SYSTEMS: Noncontributory. PHYSICAL EXAMINATION: GENERAL: The patient is a well-developed, well-nourished male who is awake, responsive, in no acute distress. VITAL SIGNS: Stable. He is afebrile. SKIN: Without generalized rash. HEENT: Within normal limits. NECK: Supple. LYMPH NODES: None palpable. CHEST: Decreased breath sounds at the bases. HEART: Without murmur or gallop. ABDOMEN: Soft and nontender, without organosplenomegaly or masses. EXTREMITIES: Without cyanosis, clubbing or edema. His right thigh is bandaged, status post surgery. RECTAL AND GENITAL: Deferred. NEUROLOGIC: No focal neurologic abnormality. IMPRESSION AND PLAN: The patient had abscess drained by Dr. Crandall. Wound culture is pending and the p atient is on vancomycin and Zosyn. The patient should be on vancomycin as well as Zosyn. The vancom ycin for some reason was discontinued and I will check for the reason for that, although it may be th e fact that his renal function is somewhat worse at 37/2.03. We may want to place the patient on cli ndamycin since he is not covered for methicillin-resistant staph. The cultures are pending. I will dictate my findings to the hospitalist and Dr. Crandall. Dictated By: NOLAN DUPREE MD MELODY/NTS Conf#: [id number] DID#: [id number] CC: TREVA LUA MD; HIWOT CHEN MD; WARREN LEUNG MD;*End*
[2018-05-09] MEDS: ERTAPENEM SODIUM 1 GM in SOD CHLORIDE 0.9% 100 ML IVPB SCH (13:45)
[2018-05-09] MEDS ORDERED: PIPER-TAZO 2.25 GM (PMX) 50 ML IVPB SCH (14:00)
[2018-05-09] MEDS: CLINDAMYCIN 900 MG/D5W (PMX) 50 ML IVPB SCH ×2 (14:27→21:57)
--- NOTE | 2018-05-09 19:17 | CONS ---
DATE OF ADMISSION: 05/05/2018 DATE OF CONSULTATION: 05/09/2018 TYPE OF CONSULTATION: Nephrology. REASON FOR CONSULTATION: Acute kidney injury. PHYSICIAN REQUESTING CONSULT: Derick Landry MD HISTORY OF PRESENT ILLNESS: This is a 47-year-old male with a past medical history of diabetes, hist ory of diabetic retinopathy, who presents to [facility] with right lower extremity wound. The patient was subsequently admitted to telemetry for wound management. During the hospital course, the patient was seen by podiatry and surgery. The patient had an intramuscular abscess and underwent I and D of the abscess. The patient was also on broad spectrum antibiotics, vancomycin and Zosyn. The patient had uncomplicated hospital course. In terms of patient's renal history on admission, the patient had a noted creatinine of 1.21 mg/dL, w hich has increased to 2.3 mg/dL over the last 48 hours. The patient at this time has been receiving vancomycin and Zosyn. During this time, the patient is also noted to have hemodynamic fluctuations. There have been no reports of any hemoptysis, hematemesis, hematochezia. PAST MEDICAL HISTORY: History of hypertension, history of diabetes. ALLERGIES: NO KNOWN DRUG ALLERGIES. FAMILY HISTORY: No family history of kidney disease. SOCIAL HISTORY: Does not actively drink, smoke or do drugs. PAST SURGICAL HISTORY: Has been reviewed. REVIEW OF SYSTEMS: A 14-point review of systems conducted. Pertinent positives stated in HPI, other maldonado negative. PHYSICAL EXAMINATION: VITAL SIGNS: Blood pressure is 127/76, respiration 18, pulse 61, temperature 98.0. HEENT: Head is normocephalic. NECK: Supple. HEART: Regular rate. LUNGS: Show diminished breath sounds at base. ABDOMEN: Soft, nontender to palpation without rebound or guarding. EXTREMITIES: Negative for clubbing, cyanosis. No edema. Positive dressing on the right leg, clean, dry, intact. DERMATOLOGIC: No rashes. MUSCULOSKELETAL: No joint effusion. NEUROLOGIC: No focal deficits. MEDICATIONS: Have been reviewed. LABORATORY DATA: Show a sodium of 137, BUN 27, creatinine 1.61. The patient's vancomycin level was reviewed. CBC was reviewed. ASSESSMENT AND PLAN: This is a 47-year-old male who presents with: 1. Nonoliguric acute kidney injury with a previously unknown baseline creatinine, questionable chron ic kidney disease. Etiology of acute kidney injury is likely secondary to acute tubular necrosis due to nephrotoxicity from vancomycin. Other possibilities such as interstitial nephritis is a consider ation. Lower suspicion for acute glomerulonephritis or vasculitis given patient's clinical presentat ion. The patient's antibiotics have been adjusted. Plan at this point is to repeat UA with microana lysis. We will check urine electrolytes. Renal ultrasound was reviewed. No evidence of obstruction . We would continue current treatment plan, supportive care, renally dose all medications. 2. Anemia. Monitor hemoglobin and hematocrit levels. 3. Mineral bone disorder. Monitor calcium and phosphorus levels. 4. Diabetes. Continue current insulin regimen. 5. Intramuscular abscess. The patient is status post I and D. Continue to monitor. Continue wound care. 6. Hypertension. The patient's blood pressure remains elevated in part due to IV fluids and likely discontinue IV fluids. TREASURE inhibitor is being held in the setting of acute kidney injury. Continue current blood pressure regimen, adjust as needed. 7. Dyslipidemia. Continue statin therapy. Thank you, Dr. Landry, for this interesting consult. It will be a pleasure to follow patient with nando godwinout the hospital course. Dictated By: KAJAL CHAN DO NR/NTS Conf#: [id number] DID#: [id number] CC: WARREN LEUNG MD; HIWOT AVILES MD; TREVA LUA MD;*End*
--- NOTE | 2018-05-09 19:42 | PN ---
DATE: 05/06/2018 Stable vital signs. First postop day. Considerable drainage to the Ponce drain. The drains were all removed. Incision is clean and dry. New dressings were applied. Okay to be discharged possibly with some oral antibiotics for further followup care as an outpatient, to be seen by orthopedics in 2 weeks. Dictated By: RACHANA DIAMOND MD IK/NTS Conf#: [id number] DID#: [id number] CC: TREVA LUA MD; WARREN LEUNG MD; HIWOT AVILES MD;*EndCC*
[2018-05-09] MEDS: ATORVASTATIN 40 MG TAB PO SCH (21:28)
[2018-05-10] VITALS (11 sets, daily range): BP systolic 123–143; BP diastolic 68–81; PULSE 59–80; RESP 17–20
[2018-05-10] MEDS: ACCUCHECK AT 2AM (Patients on SS coverage) XX SCH (02:00)
[2018-05-10] MEDS: SOD CHLORIDE 0.9% 1,000 ML IV SCH ×3 (03:50→21:11)
[2018-05-10] MEDS: CLINDAMYCIN 900 MG/D5W (PMX) 50 ML IVPB SCH ×3 (06:07→21:50)
[2018-05-10] MEDS: INSULIN ASPART [NOVOLOG] 3 ML PEN SC SCH ×7 (08:15→21:00)
--- NOTE | 2018-05-10 08:28 | PN ---
DATE: 05/10/2018 SUBJECTIVE: The patient is stable, no events overnight. No fevers, chills, nausea, or vomiting. OBJECTIVE: VITAL SIGNS: Blood pressure is 128/68, pulse 78, respirations 18, temperature 98.0. HEENT: Head is normocephalic. NECK: Supple. HEART: Regular rate. LUNGS: Show diminished breath sounds at base. ABDOMEN: Soft, nontender to palpation without rebound or guarding. EXTREMITIES: Negative for clubbing, cyanosis, no edema. DERMATOLOGIC: No rashes. MUSCULOSKELETAL: No joint effusions. NEUROLOGIC: No change in exam. MEDICATIONS: Reviewed. LABORATORY DATA: Shows sodium 138, potassium 4.6, BUN 33, creatinine 1.96. White count 7.4, hemoglo bin 8.8, platelet count is 232. Urinalysis shows FENa less than 1%, protein to creatinine ratio appr oximately 500 mg per gram of creatinine. ASSESSMENT AND PLAN: 1. Nonoliguric acute kidney injury with previously unknown baseline creatinine, questionable chronic kidney disease. Etiology of acute kidney injury is secondary to likely tubular injury from nephroto xicity, IV antibiotics and a component of hemodynamics. The patient's urinalysis shows no evidence o f active sediment. There is noted pyuria, which can be seen in interstitial nephritis. Additionally , the patient had a FENa less than 1%, which was suggestive of prerenal etiology. The patient has be en on IV fluids. Renal function stabilized in the last 24 hours. At this point, continue gentle IV hydration. Continue supportive care, renally dose all medicines. The patient's antibiotics have bee n adjusted. Monitor closely. 2. Anemia. Continue to monitor hemoglobin and hematocrit levels. 3. Mineral bone disorder, monitor calcium and phosphorus levels. 4. Diabetes. Continue current insulin regimen. 5. Intramuscular abscess. The patient is status post incision and drainage. Continue to monitor. 6. Hypertension. Continue current blood pressure regimen. Defer TREASURE inhibitor or ARB at this time in the setting of acute kidney injury. 7. Dyslipidemia. Continue statin therapy. Dictated By: KAJAL CHAN DO NR/NTS Conf#: [id number] DID#: [id number] CC: TREVA LUA MD; HIWOT AVILES MD; WARREN LEUNG MD;*EndCC*
[2018-05-10] MEDS: ENOXAPARIN 30 MG/0.3 ML SYG SC SCH (09:18)
--- NOTE | 2018-05-10 09:41 | PN ---
Date/Time of Note Date/Time of Note DATE: 05/10/18 TIME: 09:34 Assessment/Plan VTE Prophylaxis Risk score (from [facility])>0 risk: 7 SCD applied (from [facility]): Yes Pharmacological prophylaxis: LMWH Lines/Catheters IV Catheter Type (from [facility]): Peripheral IV Urinary Cath still in place: No Assessment/Plan Problems: (1) Abscess of right leg Status: Acute Comment: Is now status post incision and drainage procedure on hospital day #3. He has MRSA in the wound is going to need aggressive antibiotic therapy. Hopefully good outcome although he will need some physical therapy is involved semimembranous muscle (2) MRSA (methicillin resistant staph aureus) culture positive Status: Acute Comment: Adjust antibiotics as per infectious diseases. (3) Sepsis Status: Acute Comment: On antibiotic therapy now Qualifiers: Sepsis type: methicillin resistant Staphylococcus aureus Qualified Codes: A41.02 - Sepsis due to methicillin resistant Staphylococcus aureus (4) Diabetes, polyneuropathy Status: Chronic Comment: I have a suspicion that this may be a little bit of a crossover between pancreatic beta cell insufficiency and some insulin resistance syndrome. Clearly in the setting of the sepsis is insulin resistance is worse. He had some knowledge deficit about how to use his insulin which the certified court/medical interpreter, and myself have carefully explained to him. I believe he has a better handle on this now. Qualifiers: Diabetes mellitus type: type 2 Qualified Codes: E11.42 - Type 2 diabetes mellitus with diabetic polyneuropathy (5) Hyperlipidemia Status: Chronic Comment: Continue statin therapy Qualifiers: Hyperlipidemia type: pure hypercholesterolemia Qualified Codes: E78.00 - Pure hypercholesterolemia, unspecified (6) Acute kidney injury superimposed on chronic kidney disease Status: Acute Comment: His creatinine is a little bit better. Please note that his creatinine had been in the 0.6 range as a baseline 2 years ago and come up into the low ones at the time of this admission. Continue careful observation. (7) Chronic kidney disease, stage II (mild) Status: Chronic Comment: Noted. (8) Acquired absence of other right toe(s) Status: Chronic Comment: Noted. (9) Anemia Status: Chronic Comment: Perform basic workup Qualifiers: Anemia type: unspecified type Qualified Codes: D64.9 - Anemia, unspecified Result Diagram: 05/10/18 0602 05/10/18 0603 Results 24hrs Laboratory Tests Test 05/09/18 11:08 05/09/18 13:00 05/09/18 17:19 05/09/18 20:55 Bedside Glucose 369 H 323 H 308 H Urine Color YELLOW Urine Clarity CLEAR Urine pH 5.0 Urine Specific 1.021 [place] Urine Ketones NEGATIVE Urine Nitrite NEGATIVE Urine Bilirubin NEGATIVE Urine Urobilinogen NEGATIVE Urine Leukocyte TRACE A Esterase Urine Microscopic 2 RBC Urine Microscopic 17 H WBC Urine Hemoglobin 1+ H Urine Random 116.43 Creatinine Urine Random Sodium 21 L Urine Glucose 3+ H Urine Total Protein 44.0 H Test 05/10/18 03:28 05/10/18 06:02 05/10/18 06:03 Bedside Glucose 281 H White Blood Count 7.4 Red Blood Count 3.14 L Hemoglobin 8.8 L Hematocrit 26.8 L Mean Corpuscular 85.4 Volume Mean Corpuscular 28.0 L Hemoglobin Mean Corpuscular 32.8 Hemoglobin Concent Red Cell 12.0 Distribution Width Platelet Count 332 # Mean Platelet Volume 8.6 Immature 0.500 H Granulocytes % Neutrophils % 71.0 Lymphocytes % 17.5 Monocytes % 9.2 Eosinophils % 1.5 Basophils % 0.3 Nucleated Red Blood 0.0 Cells % Immature 0.040 H Granulocytes # Neutrophils # 5.2 Lymphocytes # 1.3 Monocytes # 0.7 Eosinophils # 0.1 Basophils # 0.0 Nucleated Red Blood 0.0 Cells # Total Bilirubin 0.0 L Direct Bilirubin 0.00 Indirect Bilirubin 0.0 Aspartate Amino 23 Transf (AST/SGOT) Alanine 24 Aminotransferase (AL T/SGPT) Alkaline Phosphatase 143 H Total Protein 5.3 L Albumin 2.3 L Sodium Level 138 Potassium Level 4.6 Chloride Level 107 Carbon Dioxide Level 22 Anion Gap 9 Blood Urea Nitrogen 33 H Creatinine 1.97 H Est Glomerular 37 L Filtrat Rate mL/min Glucose Level 259 H Calcium Level 8.3 L Phosphorus Level 3.6 Magnesium Level 2.0 CC: OCHOA DIAMOND MD; LOUANN JORDAN DPM; KAJAL CHAN DO ; Subjective 24 Hr Interval Summary Free Text/Dictation Patient is somewhat stoic. He reports his pain is better but he occasionally is wincing during the evaluation Constitutional: no complaints (No further fevers, shaking chills, drenching sweats) Eyes: no complaints Respiratory: no complaints Cardiovascular: no complaints Gastrointestinal: no complaints Genitourinary: no complaints Exam/Review of Systems Vital Signs Vitals Vital Signs Date Temp Pulse Resp B/P (MAP) Pulse Ox O2 O2 Flow FiO2 Time Delivery Rate 05/10/18 73 08:01 05/10/18 98.0 18 128/68 93 07:22 (88) 05/09/18 Room Air 15:52 Intake and Output 05/09/18 05/09/18 05/10/18 1414:59 22:59 06:59 IntakeIntake Total 1150 ml 1800 ml 1450 ml OutputOutput Total 900 ml 1300 ml BalanceBalance 1150 ml 900 ml 150 ml Exam Intermittently wincing in pain from the right leg Constitutional: alert, oriented Neck: supple, non-tender Respiratory: clear to auscultation, normal air movement Cardiovascular: regular rate and rhythm, nl pulses Gastrointestinal: soft, nl liver, spleen, non-tender Extremities: other (Right leg bandaged.) Medications Medications Current Medications Atorvastatin Calcium (Lipitor) 40 mg QHS PO Last administered on 05/09/18at 21:28; Admin Dose 40 MG; Start 05/05/18 at 21:00 Diazepam (Valium) 5 mg BID PRN PO MUSCLE SPASMS; Start 05/05/18 at 19:00 IV Flush (NS 3 ml) 3 ml PER PROTOCOL IV ; Start 05/05/18 at 19:00 Acetaminophen/ Hydrocodone Bitart (Upperglade (5/325)) 2 tab Q6H PRN PO SEVERE PAIN LEVEL 7-10 Last administered on 05/06/18at 15:58; Admin Dose 2 TAB; Start 05/05/18 at 19:00 Miscellaneous Information 1 ea NOTE XX ; Start 05/05/18 at 19:30 Glucose (Glutose) 15 gm Q15M PRN PO DECREASED GLUCOSE; Start 05/05/18 at 19:30 Glucose (Glutose) 22.5 gm Q15M PRN PO DECREASED GLUCOSE; Start 05/05/18 at 19:30 Dextrose (D50w Syringe) 25 ml Q15M PRN IV DECREASED GLUCOSE; Start 05/05/18 at 19:30 Dextrose (D50w Syringe) 50 ml Q15M PRN IV DECREASED GLUCOSE; Start 05/05/18 at 19:30 Glucagon (Glucagen) 1 mg Q15M PRN IM DECREASED GLUCOSE; Start 05/05/18 at 19:30 Glucose (Glutose) 15 gm Q15M PRN BUCCAL DECREASED GLUCOSE; Start 05/05/18 at 19: 30 IV Flush (NS 3 ml) 3 ml PER PROTOCOL IV ; Start 05/08/18 at 16:00 Sodium Chloride 1,000 ml @ 40 mls/hr Q24H IV Last administered on 05/10/18at 04:25; Admin Dose 125 MLS/HR; Start 05/08/18 at 15:58 Acetaminophen/ Hydrocodone Bitart (Upperglade (5/325)) 1 tab Q3H PRN PO MODERATE PAIN LEVEL 4-6; Start 05/08/18 at 16:00 Diagnostic Test (Pha) (Accu-Chek) 1 ea 02 XX ; Start 05/09/18 at 02:00 Morphine Sulfate (morphine) 6 mg Q4H PRN PO SEVERE PAIN LEVEL 7-10; Start 05/08/18 at 23:00 Insulin Aspart (Novolog Insulin Pen) 8 unit WITH MEALS SC Last administered on 05/10/18at 08:15; Admin Dose 8 UNIT; Start 05/09/18 at 11:50 Enoxaparin Sodium (Lovenox) 30 mg DAILY SC Last administered on 05/10/18at 09 :18; Admin Dose 30 MG; Start 05/10/18 at 09:00 Hydralazine HCl (Apresoline) 10 mg Q6H PRN IV sbp>160mmhg; Start 05/09/18 at 11:30 Clindamycin HCl/ Dextrose 50 ml @ 50 mls/hr Q8 IVPB Last administered on 05/10/18at 06:07; Admin Dose 50 MLS/HR; Start 05/09/18 at 14:00 Ertapenem 1 gm/ Sodium Chloride 100 ml @ 200 mls/hr Q24H IVPB Last administered on 05/09/18at 13:45; Admin Dose 200 MLS/HR; Start 05/09/18 at 13:30 Insulin Aspart (Novolog Insulin Pen) NOVOLOG *MILD* ALGORITHM WITH MEALS BEDTIME SC Last administered on 05/10/18at 08:15; Admin Dose 3 UNIT; Start 05/09/18 at 21:30 SARA HADLEY MD May 10, 2018 09:41
[2018-05-10] MEDS: LINAGLIPTIN 5 MG TABLET PO SCH (10:31)
[2018-05-10] MEDS: ERTAPENEM SODIUM 1 GM in SOD CHLORIDE 0.9% 100 ML IVPB SCH (13:30)
--- NOTE | 2018-05-10 14:15 | CONS ---
Date/Time of Note Date/Time of Note DATE: 05/10/18 TIME: 14:14 Assessment/Plan Assessment/Plan Hospital Course Patient is alert feels better looks comfortable no fevers overnight WBC 7.4 no shift no bands BUN 33 creatinine 1.97 Microbiology: Right thigh cultures growing MRSA susceptible to clindamycin Bactrim Vanco rifampin doxycycline and Levaquin Antimicrobials: Clindamycin, Invanz Physical examination: Well-nourished well-developed middle-aged man who is alert in no distress. Head atraumatic normocephalic neck is supple chest rise symmetrical breath sounds clear heart: S1-S2. Abdomen soft bowel sounds present. Extremities with right thigh Aron wrapped Assessment: 1. Right thigh cellulitis with MRSA abscess status post I&D 2. Acute renal failure 3. Diabetes 4. Hypertension Plan: Patient remains stable we will discontinue Invanz, continue clindamycin, monitor his renal function as per nephrology. Orto recommendations noted, anticipate discharge on oral clindamycin when he is medically cleared to complete 2 weeks Result Diagram: 05/10/18 0602 05/10/18 0603 Results 24hrs Laboratory Tests Test 05/09/18 17:19 05/09/18 20:55 05/10/18 03:28 05/10/18 06:02 Bedside Glucose 323 H 308 H 281 H White Blood Count 7.4 Red Blood Count 3.14 L Hemoglobin 8.8 L Hematocrit 26.8 L Mean Corpuscular 85.4 Volume Mean Corpuscular 28.0 L Hemoglobin Mean Corpuscular 32.8 Hemoglobin Concent Red Cell 12.0 Distribution Width Platelet Count 332 # Mean Platelet Volume 8.6 Immature 0.500 H Granulocytes % Neutrophils % 71.0 Lymphocytes % 17.5 Monocytes % 9.2 Eosinophils % 1.5 Basophils % 0.3 Nucleated Red Blood 0.0 Cells % Immature 0.040 H Granulocytes # Neutrophils # 5.2 Lymphocytes # 1.3 Monocytes # 0.7 Eosinophils # 0.1 Basophils # 0.0 Nucleated Red Blood 0.0 Cells # Iron Level 43 Total Iron Binding 194 L Capacity Percent Iron 22 Saturation Ferritin 497.0 H Total Bilirubin 0.0 L Direct Bilirubin 0.00 Indirect Bilirubin 0.0 Aspartate Amino 23 Transf (AST/SGOT) Alanine 24 Aminotransferase (AL T/SGPT) Alkaline Phosphatase 143 H Total Protein 5.3 L Albumin 2.3 L Hepatitis B Surface NEGATIVE Antigen Hepatitis C Antibody NEGATIVE Test 05/10/18 06:03 05/10/18 08:03 05/10/18 11:59 Sodium Level 138 Potassium Level 4.6 Chloride Level 107 Carbon Dioxide Level 22 Anion Gap 9 Blood Urea Nitrogen 33 H Creatinine 1.97 H Est Glomerular 37 L Filtrat Rate mL/min Glucose Level 259 H Calcium Level 8.3 L Phosphorus Level 3.6 Magnesium Level 2.0 Bedside Glucose 240 H 171 Consultation Date/Type/Reason Admit Date/Time May 05, 2018 at 18:00 Initial Consult Date 05/06/18 Type of Consult id Requesting Provider: HIWOT AVILES MD Exam/Review of Systems Vital Signs Vitals Vital Signs Date Temp Pulse Resp B/P (MAP) Pulse Ox O2 O2 Flow FiO2 Time Delivery Rate 05/10/18 74 12:01 05/10/18 98.1 19 123/81 97 11:28 (95) 05/09/18 Room Air 15:52 Intake and Output 05/09/18 05/09/18 05/10/18 1515:00 23:00 07:00 IntakeIntake Total 1150 ml 1800 ml 1450 ml OutputOutput Total 900 ml 1300 ml BalanceBalance 1150 ml 900 ml 150 ml Medications Medications Current Medications Atorvastatin Calcium (Lipitor) 40 mg QHS PO Last administered on 05/09/18at 21:28; Admin Dose 40 MG; Start 05/05/18 at 21:00 Diazepam (Valium) 5 mg BID PRN PO MUSCLE SPASMS; Start 05/05/18 at 19:00 IV Flush (NS 3 ml) 3 ml PER PROTOCOL IV ; Start 05/05/18 at 19:00 Acetaminophen/ Hydrocodone Bitart ([place] (5/325)) 2 tab Q6H PRN PO SEVERE PAIN LEVEL 7-10 Last administered on 05/06/18at 15:58; Admin Dose 2 TAB; Start 05/05/18 at 19:00 Miscellaneous Information 1 ea NOTE XX ; Start 05/05/18 at 19:30 Glucose (Glutose) 15 gm Q15M PRN PO DECREASED GLUCOSE; Start 05/05/18 at 19:30 Glucose (Glutose) 22.5 gm Q15M PRN PO DECREASED GLUCOSE; Start 05/05/18 at 19:30 Dextrose (D50w Syringe) 25 ml Q15M PRN IV DECREASED GLUCOSE; Start 05/05/18 at 19:30 Dextrose (D50w Syringe) 50 ml Q15M PRN IV DECREASED GLUCOSE; Start 05/05/18 at 19:30 Glucagon (Glucagen) 1 mg Q15M PRN IM DECREASED GLUCOSE; Start 05/05/18 at 19:30 Glucose (Glutose) 15 gm Q15M PRN BUCCAL DECREASED GLUCOSE; Start 05/05/18 at 19:30 IV Flush (NS 3 ml) 3 ml PER PROTOCOL IV ; Start 05/08/18 at 16:00 Sodium Chloride 1,000 ml @ 40 mls/hr Q24H IV Last administered on 05/10/18at 04:25; Admin Dose 125 MLS/HR; Start 05/08/18 at 15:58 Acetaminophen/ Hydrocodone Bitart ([place] (5/325)) 1 tab Q3H PRN PO MODERATE PAIN LEVEL 4-6; Start 05/08/18 at 16:00 Diagnostic Test (Pha) (Accu-Chek) 1 ea 02 XX ; Start 05/09/18 at 02:00 Morphine Sulfate (morphine) 6 mg Q4H PRN PO SEVERE PAIN LEVEL 7-10; Start 05/08/18 at 23:00 Insulin Aspart (Novolog Insulin Pen) 8 unit WITH MEALS SC Last administered on 05/10/18at 12:04; Admin Dose 8 UNIT; Start 05/09/18 at 11:50 Enoxaparin Sodium (Lovenox) 30 mg DAILY SC Last administered on 05/10/18at 09:18; Admin Dose 30 MG; Start 05/10/18 at 09:00 Hydralazine HCl (Apresoline) 10 mg Q6H PRN IV sbp>160mmhg; Start 05/09/18 at 11:30 Clindamycin HCl/ Dextrose 50 ml @ 50 mls/hr Q8 IVPB Last administered on 05/10/18at 06:07; Admin Dose 50 MLS/HR; Start 05/09/18 at 14:00 Ertapenem 1 gm/ Sodium Chloride 100 ml @ 200 mls/hr Q24H IVPB Last administered on 05/09/18at 13:45; Admin Dose 200 MLS/HR; Start 05/09/18 at 13:30 Insulin Aspart (Novolog Insulin Pen) NOVOLOG *MILD* ALGORITHM WITH MEALS BEDTIME SC Last administered on 05/10/18at 12:05; Admin Dose 1 UNIT; Start 05/09/18 at 21:30 Linagliptin (Tradjenta) 5 mg DAILY PO Last administered on 05/10/18at 10:31; Admin Dose 5 MG; Start 05/10/18 at 09:30 MIGUELINA RUDOLPH NP May 10, 2018 14:15
[2018-05-10] MEDS: ATORVASTATIN 40 MG TAB PO SCH (21:10)
[2018-05-11] VITALS (11 sets, daily range): BP systolic 117–160; BP diastolic 70–85; PULSE 65–99; RESP 16–19
[2018-05-11] MEDS: ACCUCHECK AT 2AM (Patients on SS coverage) XX SCH (01:35)
[2018-05-11] MEDS: ACETAMINOPHEN 325 MG TAB PO PRN ×2 (04:23→14:32)
[2018-05-11] MEDS: CLINDAMYCIN 900 MG/D5W (PMX) 50 ML IVPB SCH ×3 (05:10→23:37)
[2018-05-11] MEDS: INSULIN ASPART [NOVOLOG] 3 ML PEN SC SCH ×7 (07:55→21:00)
[2018-05-11] MEDS: LINAGLIPTIN 5 MG TABLET PO SCH (08:10)
[2018-05-11] MEDS: ENOXAPARIN 30 MG/0.3 ML SYG SC SCH (08:16)
--- NOTE | 2018-05-11 09:21 | PN ---
DATE: 05/11/2018 SUBJECTIVE: The patient is stable, no events overnight. No fevers, chills, nausea, vomiting. OBJECTIVE: VITAL SIGNS: Blood pressure 117/75, pulse 74, respirations 16, temperature 98.4. HEENT: Head is normocephalic. NECK: Supple. HEART: Regular rate. LUNGS: Show diminished breath sounds at the base. ABDOMEN: Soft, nontender to palpation without rebound or guarding. EXTREMITIES: Negative for clubbing, cyanosis, no edema. DERMATOLOGIC: No rashes. MUSCULOSKELETAL: No joint effusion. NEUROLOGIC: No change in exam. MEDICATIONS: Have been reviewed. LABORATORY DATA: Shows sodium 138, potassium 4.5, BUN 28, creatinine 1.96. White count 7.9, hemoglo bin 9.3, platelet count is 382. ASSESSMENT AND PLAN: 1. Nonoliguric acute kidney injury with previous baseline creatinine on admission of 1.2 mg/dL. Alison ology of current acute kidney injury is felt to be multifactorial secondary to nephrotoxicity from an tibiotics, vancomycin and Zosyn. The patient is status post IV hydration with no significant change in renal function. The patient appears to be entering maintenance phase of acute tubular necrosis. At this point, will discontinue IV fluids. We will continue to monitor renal function closely. May consider repeating UA with microanalysis and further evaluation if renal function does not continue t o improve. 2. Anemia. Monitor hemoglobin and hematocrit levels. 3. Mineral bone disorder. Will monitor calcium and phosphorus levels. 4. Diabetes. Continue current insulin regimen. 5. Abscess. The patient is status post incision and drainage. Continue to monitor. 6. Hypertension. Continue current blood pressure regimen. Defer TREASURE inhibitor ARB at this time. 7. Dyslipidemia. Continue statin therapy. Dictated By: KAJAL CHAN DO NR/NTS Conf#: [id number] DID#: [id number] CC: WARREN LEUNG MD; TREVA LUA MD; HIWOT AVILES MD;*EndCC*
--- NOTE | 2018-05-11 09:57 | PN ---
Date/Time of Note Date/Time of Note DATE: 05/11/18 TIME: 09:54 Assessment/Plan VTE Prophylaxis Risk score (from Ns)>0 risk: 7 SCD applied (from Ns): Yes SCD contraindicated: low risk/ambulating Pharmacological prophylaxis: heparin Lines/Catheters IV Catheter Type (from [facility]): Peripheral IV Urinary Cath still in place: No Assessment/Plan Problems: (1) MRSA (methicillin resistant staph aureus) culture positive Status: Acute Comment: Please see infectious disease notes. We will go ahead and get that planned out. I very put expiration dates on the clindamycin and the orders. (2) Abscess of right leg Status: Acute Comment: Guidance from orthopedics for outpatient treatment follow-up. Including wound management. Because of the kidney complication 1 more day in the hospital (3) Acute kidney injury superimposed on chronic kidney disease Status: Acute Comment: Presently stable and not worsening. Observe for 1 more day (4) Chronic kidney disease, stage II (mild) Status: Chronic Comment: Noted and stable (5) Diabetes, polyneuropathy Status: Chronic Comment: Adequate glycemic control on a simplified regimen Qualifiers: Diabetes mellitus type: type 2 Qualified Codes: E11.42 - Type 2 diabetes mellitus with diabetic polyneuropathy (6) Hyperlipidemia Status: Chronic Comment: Adequate control on statin therapy Qualifiers: Hyperlipidemia type: pure hypercholesterolemia Qualified Codes: E78.00 - Pure hypercholesterolemia, unspecified Result Diagram: 05/11/18 0556 05/11/18 0556 Results 24hrs Laboratory Tests Test 05/10/18 11:59 05/10/18 17:07 05/10/18 21:09 05/11/18 05:56 Bedside Glucose 171 107 105 White Blood Count 7.9 Red Blood Count 3.31 L Hemoglobin 9.3 L Hematocrit 28.1 L Mean Corpuscular 84.9 Volume Mean Corpuscular 28.1 L Hemoglobin Mean Corpuscular 33.1 Hemoglobin Concent Red Cell 12.2 Distribution Width Platelet Count 382 Mean Platelet Volume 8.2 Immature 0.500 H Granulocytes % Neutrophils % 77.3 H Lymphocytes % 13.4 L Monocytes % 6.7 Eosinophils % 1.8 Basophils % 0.3 Nucleated Red Blood 0.0 Cells % Immature 0.040 H Granulocytes # Neutrophils # 6.1 Lymphocytes # 1.1 Monocytes # 0.5 Eosinophils # 0.1 Basophils # 0.0 Nucleated Red Blood 0.0 Cells # Sodium Level 138 Potassium Level 4.5 Chloride Level 110 Carbon Dioxide Level 21 Anion Gap 7 Blood Urea Nitrogen 28 H Creatinine 1.96 H Est Glomerular 37 L Filtrat Rate mL/min Glucose Level 125 # Calcium Level 8.8 Phosphorus Level 4.4 Magnesium Level 2.0 Test 05/11/18 08:08 Bedside Glucose 119 Subjective 24 Hr Interval Summary Free Text/Dictation Very stoic gentleman but he is ambulating in the hallways. He notes some pain in the leg. Constitutional: no complaints Respiratory: no complaints Cardiovascular: no complaints Gastrointestinal: no complaints Exam/Review of Systems Vital Signs Vitals Vital Signs Date Temp Pulse Resp B/P (MAP) Pulse Ox O2 O2 Flow FiO2 Time Delivery Rate 05/11/18 98.4 74 16 117/75 100 Room Air 08:07 (89) Intake and Output 05/10/18 05/10/18 05/11/18 1515:00 23:00 07:00 IntakeIntake Total 650 ml 760 ml OutputOutput Total 1200 ml 1400 ml BalanceBalance -550 ml -640 ml Exam Constitutional: alert, oriented Neck: supple, non-tender Respiratory: clear to auscultation, normal air movement Cardiovascular: regular rate and rhythm, nl pulses Medications Medications Current Medications Atorvastatin Calcium (Lipitor) 40 mg QHS PO Last administered on 05/10/18at 21:10; Admin Dose 40 MG; Start 05/05/18 at 21:00 Diazepam (Valium) 5 mg BID PRN PO MUSCLE SPASMS; Start 05/05/18 at 19:00 IV Flush (NS 3 ml) 3 ml PER PROTOCOL IV ; Start 05/05/18 at 19:00 Acetaminophen/ Hydrocodone Bitart ([place] (5/325)) 2 tab Q6H PRN PO SEVERE PAIN LEVEL 7-10 Last administered on 05/06/18at 15:58; Admin Dose 2 TAB; Start 05/05/18 at 19:00 Miscellaneous Information 1 ea NOTE XX ; Start 05/05/18 at 19:30 Glucose (Glutose) 15 gm Q15M PRN PO DECREASED GLUCOSE; Start 05/05/18 at 19:30 Glucose (Glutose) 22.5 gm Q15M PRN PO DECREASED GLUCOSE; Start 05/05/18 at 19:30 Dextrose (D50w Syringe) 25 ml Q15M PRN IV DECREASED GLUCOSE; Start 05/05/18 at 19:30 Dextrose (D50w Syringe) 50 ml Q15M PRN IV DECREASED GLUCOSE; Start 05/05/18 at 19:30 Glucagon (Glucagen) 1 mg Q15M PRN IM DECREASED GLUCOSE; Start 05/05/18 at 19:30 Glucose (Glutose) 15 gm Q15M PRN BUCCAL DECREASED GLUCOSE; Start 05/05/18 at 19:30 IV Flush (NS 3 ml) 3 ml PER PROTOCOL IV ; Start 05/08/18 at 16:00 Acetaminophen/ Hydrocodone Bitart ([place] (5/325)) 1 tab Q3H PRN PO MODERATE PAIN LEVEL 4-6; Start 05/08/18 at 16:00 Diagnostic Test (Pha) (Accu-Chek) 1 ea 02 XX ; Start 05/09/18 at 02:00 Morphine Sulfate (morphine) 6 mg Q4H PRN PO SEVERE PAIN LEVEL 7-10; Start 05/08/18 at 23:00 Insulin Aspart (Novolog Insulin Pen) 8 unit WITH MEALS SC Last administered on 05/11/18at 08:16; Admin Dose 8 UNIT; Start 05/09/18 at 11:50 Enoxaparin Sodium (Lovenox) 30 mg DAILY SC Last administered on 05/11/18at 08:16; Admin Dose 30 MG; Start 05/10/18 at 09:00 Hydralazine HCl (Apresoline) 10 mg Q6H PRN IV sbp>160mmhg; Start 05/09/18 at 11:30 Clindamycin HCl/ Dextrose 50 ml @ 50 mls/hr Q8 IVPB Last administered on 05/11/18at 05:10; Admin Dose 50 MLS/HR; Start 05/09/18 at 14:00; Stop 05/23/18 at 13:59 Insulin Aspart (Novolog Insulin Pen) NOVOLOG *MILD* ALGORITHM WITH MEALS BEDTIME SC Last administered on 05/10/18at 12:05; Admin Dose 1 UNIT; Start 03/17 at 21:30 Linagliptin (Tradjenta) 5 mg DAILY PO Last administered on 05/11/18at 08:10; Admin Dose 5 MG; Start 05/10/18 at 09:30 Acetaminophen (Tylenol Tab) 650 mg Q6H PRN PO MILD PAIN(1-3)OR ELEVATED TEMP Last administered on 05/11/18at 04:23; Admin Dose 650 MG; Start 05/11/18 at 04:30 SARA HADLEY MD May 11, 2018 09:57
--- NOTE | 2018-05-11 11:54 | CONS ---
Date/Time of Note Date/Time of Note DATE: 05/11/18 TIME: 11:50 Assessment/Plan Assessment/Plan Result Diagram: 05/11/18 0556 05/11/18 0556 Results 24hrs Laboratory Tests Test 05/10/18 11:59 05/10/18 17:07 05/10/18 21:09 05/11/18 05:56 Bedside Glucose 171 107 105 White Blood Count 7.9 Red Blood Count 3.31 L Hemoglobin 9.3 L Hematocrit 28.1 L Mean Corpuscular 84.9 Volume Mean Corpuscular 28.1 L Hemoglobin Mean Corpuscular 33.1 Hemoglobin Concent Red Cell 12.2 Distribution Width Platelet Count 382 Mean Platelet Volume 8.2 Immature 0.500 H Granulocytes % Neutrophils % 77.3 H Lymphocytes % 13.4 L Monocytes % 6.7 Eosinophils % 1.8 Basophils % 0.3 Nucleated Red Blood 0.0 Cells % Immature 0.040 H Granulocytes # Neutrophils # 6.1 Lymphocytes # 1.1 Monocytes # 0.5 Eosinophils # 0.1 Basophils # 0.0 Nucleated Red Blood 0.0 Cells # Sodium Level 138 Potassium Level 4.5 Chloride Level 110 Carbon Dioxide Level 21 Anion Gap 7 Blood Urea Nitrogen 28 H Creatinine 1.96 H Est Glomerular 37 L Filtrat Rate mL/min Glucose Level 125 # Calcium Level 8.8 Phosphorus Level 4.4 Magnesium Level 2.0 Test 05/11/18 08:08 Bedside Glucose 119 Consultation Date/Type/Reason Admit Date/Time May 05, 2018 at 18:00 Initial Consult Date SUBJECTIVE: Patient is awake,alert, looks comfortable. Has spiked fever over night and early this AM 100.1. Currently afebrile. LABS: Reviewed. WBC- 7.9 Microbiology: Right thigh cultures growing MRSA susceptible to clindamycin Bactrim Vanco rifampin doxycycline and Levaquin Antimicrobials: Clindamycin Physical examination: GEN: Well-nourished well-developed middle-aged man who is alert in no distress. HENT: Head atraumatic normocephalic, neck is supple. PULM: chest rise symmetrical, breath sounds clear Heart: RRR, S1-S2. Abdomen soft bowel sounds present. Extremities with right thigh Aron wrapped Assessment: 1. Right thigh cellulitis with MRSA abscess status post I&D 2. Acute renal failure 3. Diabetes 4. Hypertension Plan: Patient remains stable. Continue current antbx. and start back on Invanz. CXR in AM. Nephro following.. Anticipate discharge on oral clindamycin when he is medically cleared to complete 2 weeks. Requesting Provider: HIWOT AVILES MD Exam/Review of Systems Vital Signs Vitals Vital Signs Date Temp Pulse Resp B/P (MAP) Pulse Ox O2 O2 Flow FiO2 Time Delivery Rate 05/11/18 98.1 68 18 160/85 98 Room Air 11:08 (110) Intake and Output 05/10/18 05/10/18 05/11/18 1515:00 23:00 07:00 IntakeIntake Total 650 ml 760 ml OutputOutput Total 1200 ml 1400 ml BalanceBalance -550 ml -640 ml Medications Medications Current Medications Atorvastatin Calcium (Lipitor) 40 mg QHS PO Last administered on 05/10/18at 21:10; Admin Dose 40 MG; Start 05/05/18 at 21:00 Diazepam (Valium) 5 mg BID PRN PO MUSCLE SPASMS; Start 05/05/18 at 19:00 IV Flush (NS 3 ml) 3 ml PER PROTOCOL IV ; Start 05/05/18 at 19:00 Acetaminophen/ Hydrocodone Bitart ([place] (5/325)) 2 tab Q6H PRN PO SEVERE PAIN LEVEL 7-10 Last administered on 05/06/18at 15:58; Admin Dose 2 TAB; Start 05/05/18 at 19:00 Miscellaneous Information 1 ea NOTE XX ; Start 05/05/18 at 19:30 Glucose (Glutose) 15 gm Q15M PRN PO DECREASED GLUCOSE; Start 05/05/18 at 19:30 Glucose (Glutose) 22.5 gm Q15M PRN PO DECREASED GLUCOSE; Start 05/05/18 at 19:30 Dextrose (D50w Syringe) 25 ml Q15M PRN IV DECREASED GLUCOSE; Start 05/05/18 at 19:30 Dextrose (D50w Syringe) 50 ml Q15M PRN IV DECREASED GLUCOSE; Start 05/05/18 at 19:30 Glucagon (Glucagen) 1 mg Q15M PRN IM DECREASED GLUCOSE; Start 05/05/18 at 19:30 Glucose (Glutose) 15 gm Q15M PRN BUCCAL DECREASED GLUCOSE; Start 05/05/18 at 19:30 IV Flush (NS 3 ml) 3 ml PER PROTOCOL IV ; Start 05/08/18 at 16:00 Acetaminophen/ Hydrocodone Bitart ([place] (5/325)) 1 tab Q3H PRN PO MODERATE PAIN LEVEL 4-6; Start 05/08/18 at 16:00 Diagnostic Test (Pha) (Accu-Chek) 1 ea 02 XX ; Start 05/09/18 at 02:00 Morphine Sulfate (morphine) 6 mg Q4H PRN PO SEVERE PAIN LEVEL 7-10; Start 05/08/18 at 23:00 Insulin Aspart (Novolog Insulin Pen) 8 unit WITH MEALS SC Last administered on 05/11/18 08:16; Admin Dose 8 UNIT; Start 05/09/18 at 11:50 Enoxaparin Sodium (Lovenox) 30 mg DAILY SC Last administered on 05/11/18at 08:16; Admin Dose 30 MG; Start 05/10/18 at 09:00 Hydralazine HCl (Apresoline) 10 mg Q6H PRN IV sbp>160mmhg Last administered on 05/11/18at 11:37; Admin Dose 10 MG; Start 05/09/18 at 11:30 Clindamycin HCl/ Dextrose 50 ml @ 50 mls/hr Q8 IVPB Last administered on 05/11/18at 05:10; Admin Dose 50 MLS/HR; Start 05/09/18 at 14:00; Stop 05/23/18 at 13:59 Insulin Aspart (Novolog Insulin Pen) NOVOLOG *MILD* ALGORITHM WITH MEALS BEDTIME SC Last administered on 05/10/18at 12:05; Admin Dose 1 UNIT; Start 05/09/18 at 21:30 Linagliptin (Tradjenta) 5 mg DAILY PO Last administered on 05/11/18at 08:10; Admin Dose 5 MG; Start 05/10/18 at 09:30 Acetaminophen (Tylenol Tab) 650 mg Q6H PRN PO MILD PAIN(1-3)OR ELEVATED TEMP Last administered on 05/11/18at 04:23; Admin Dose 650 MG; Start 05/11/18 at 04:30 JAJA SHARP May 11, 2018 11:54
[2018-05-11] MEDS ORDERED: ERTAPENEM SODIUM 1 GM in SOD CHLORIDE 0.9% 100 ML IVPB SCH (13:15)
[2018-05-11] MEDS: ATORVASTATIN 40 MG TAB PO SCH (21:48)
[2018-05-12 01:26] VITALS: BP 138/76; PULSE 85; RESP 18
[2018-05-12] MEDS: ACCUCHECK AT 2AM (Patients on SS coverage) XX SCH (02:00)
[2018-05-12] MEDS: CLINDAMYCIN 900 MG/D5W (PMX) 50 ML IVPB SCH (06:22)
[2018-05-12 07:54] VITALS: BP 144/74; PULSE 85; RESP 16
[2018-05-12] MEDS: INSULIN ASPART [NOVOLOG] 3 ML PEN SC SCH ×4 (08:00→13:29)
--- NOTE | 2018-05-12 08:29 | PN ---
DATE: 05/12/2018 SUBJECTIVE: The patient stable, no events overnight. OBJECTIVE: VITAL SIGNS: Blood pressure is 144/74, pulse 85, respirations 16, temperature 98.8. HEENT: Head is normocephalic. NECK: Supple. HEART: Regular rate. LUNGS: Show diminished breath sounds at the base. ABDOMEN: Soft, nontender to palpation without rebound or guarding. EXTREMITIES: Negative for clubbing, cyanosis, no edema. DERMATOLOGIC: No rashes. MUSCULOSKELETAL: No joint effusion. NEUROLOGIC: No change in exam. MEDICATIONS: Reviewed. LABORATORY DATA: Shows sodium 140, BUN 31, creatinine 1.91. White count 7.9, hemoglobin 9.3, and pl atelet count is 382. ASSESSMENT AND PLAN: 1. Nonoliguric acute kidney injury with previous baseline creatinine of 1.2 mg/dL. Etiology of acut e kidney injury is felt to be secondary to acute tubular necrosis due to nephrotoxicity from likely a ntibiotics. The patient's renal function has stabilized and is slowly improving. At this point, [place] current treatment plan, supportive care, renally dose all medicines. 2. Anemia. Continue to monitor hemoglobin and hematocrit levels. 3. Mineral bone disorder, monitor calcium and phosphorus levels. 4. Diabetes. Continue current insulin regimen. 5. Hypertension. Continue current blood pressure regimen. Defer TREASURE inhibitor and ARB at this time . 6. Dyslipidemia. Continue statin therapy. 7. Abscess. The patient is status post incision and drainage. Dictated By: KAJAL CHAN DO NR/NTS Conf#: [id number] DID#: [id number] CC: TREVA LUA MD; HIWOT AVILES MD; WARREN LEUNG MD;*End*
[2018-05-12] MEDS: LINAGLIPTIN 5 MG TABLET PO SCH (08:33)
[2018-05-12] MEDS: ENOXAPARIN 30 MG/0.3 ML SYG SC SCH (08:35)
[2018-05-12 13:19] VITALS: BP 144/83; PULSE 80; RESP 17
--- NOTE | 2018-05-12 14:39 | CONS ---
Date/Time of Note Date/Time of Note DATE: 05/12/18 TIME: 14:38 Assessment/Plan Assessment/Plan Hospital Course No acute changes per report, patient looks comfortable, no fevers Microbiology: Right thigh cultures growing MRSA susceptible to clindamycin Bactrim Vanco rifampin doxycycline and Levaquin Antimicrobials: Clindamycin, Invanz Physical examination: Well-nourished well-developed middle-aged man who is alert in no distress. Head atraumatic normocephalic neck is supple chest rise symmetrical breath sounds clear heart: S1-S2. Abdomen soft bowel sounds present. Extremities with right thigh Aron wrapped Assessment: 1. Right thigh cellulitis with MRSA abscess status post I&D 2. Acute renal failure 3. Diabetes 4. Hypertension 5. Pneumonia Plan: Remains stable, continue present care and antibiotics, anticipate discharge on oral clindamycin and Levaquin for 7 more days Result Diagram: 05/11/18 0556 05/12/18 0543 Results 24hrs Laboratory Tests Test 05/11/18 17:19 05/11/18 21:48 05/12/18 05:43 05/12/18 08:28 Bedside Glucose 92 94 109 Sodium Level 140 Potassium Level 4.7 Chloride Level 106 Carbon Dioxide Level 22 Anion Gap 12 Blood Urea Nitrogen 31 H Creatinine 1.91 H Est Glomerular 38 L Filtrat Rate mL/min Glucose Level 114 Calcium Level 9.0 Phosphorus Level 4.6 Magnesium Level 2.0 Test 05/12/18 12:49 Bedside Glucose 100 Consultation Date/Type/Reason Admit Date/Time May 05, 2018 at 18:00 Initial Consult Date 05/06/18 Type of Consult id Requesting Provider: HIWOT AVILES MD Exam/Review of Systems Vital Signs Vitals Vital Signs Date Temp Pulse Resp B/P (MAP) Pulse Ox O2 O2 Flow FiO2 Time Delivery Rate 05/12/18 98.0 80 17 144/83 96 Room Air 13:19 (103) Intake and Output 05/11/18 05/11/18 05/12/18 1515:00 23:00 07:00 IntakeIntake Total 860 ml 550 ml OutputOutput Total 1400 ml BalanceBalance -540 ml 550 ml Medications Medications Current Medications Atorvastatin Calcium (Lipitor) 40 mg QHS PO Last administered on 05/11/18at 21:48; Admin Dose 40 MG; Start 05/05/18 at 21:00 Diazepam (Valium) 5 mg BID PRN PO MUSCLE SPASMS; Start 05/05/18 at 19:00 IV Flush (NS 3 ml) 3 ml PER PROTOCOL IV ; Start 05/05/18 at 19:00 Acetaminophen/ Hydrocodone Bitart ([place] (5/325)) 2 tab Q6H PRN PO SEVERE PAIN LEVEL 7-10 Last administered on 05/06/18at 15:58; Admin Dose 2 TAB; Start 05/05/18 at 19:00 Miscellaneous Information 1 ea NOTE XX ; Start 05/05/18 at 19:30 Glucose (Glutose) 15 gm Q15M PRN PO DECREASED GLUCOSE; Start 05/05/18 at 19:30 Glucose (Glutose) 22.5 gm Q15M PRN PO DECREASED GLUCOSE; Start 05/05/18 at 19:30 Dextrose (D50w Syringe) 25 ml Q15M PRN IV DECREASED GLUCOSE; Start 05/05/18 at 19:30 Dextrose (D50w Syringe) 50 ml Q15M PRN IV DECREASED GLUCOSE; Start 05/05/18 at 19:30 Glucagon (Glucagen) 1 mg Q15M PRN IM DECREASED GLUCOSE; Start 05/05/18 at 19:30 Glucose (Glutose) 15 gm Q15M PRN BUCCAL DECREASED GLUCOSE; Start 05/05/18 at 19:30 IV Flush (NS 3 ml) 3 ml PER PROTOCOL IV ; Start 05/08/18 at 16:00 Acetaminophen/ Hydrocodone Bitart ([place] (5/325)) 1 tab Q3H PRN PO MODERATE PAIN LEVEL 4-6; Start 05/08/18 at 16:00 Diagnostic Test (Pha) (Accu-Chek) 1 ea 02 XX ; Start 05/09/18 at 02:00 Morphine Sulfate (morphine) 6 mg Q4H PRN PO SEVERE PAIN LEVEL 7-10; Start 05/08/18 at 23:00 Insulin Aspart (Novolog Insulin Pen) 8 unit WITH MEALS SC Last administered on 05/12/18at 13:29; Admin Dose 8 UNIT; Start 05/09/18 at 11:50 Enoxaparin Sodium (Lovenox) 30 mg DAILY SC Last administered on 05/12/18at 08:35; Admin Dose 30 MG; Start 05/10/18 at 09:00 Hydralazine HCl (Apresoline) 10 mg Q6H PRN IV sbp>160mmhg Last administered on 05/11/18at 11:37; Admin Dose 10 MG; Start 05/09/18 at 11:30 Clindamycin HCl/ Dextrose 50 ml @ 50 mls/hr Q8 IVPB Last administered on 06:22; Admin Dose 50 MLS/HR; Start 05/09/18 at 14:00; Stop 05/23/18 at 13:59 Insulin Aspart (Novolog Insulin Pen) NOVOLOG *MILD* ALGORITHM WITH MEALS BEDTIME SC Last administered on 05/10/18at 12:05; Admin Dose 1 UNIT; Start 05/09/18 at 21:30 Linagliptin (Tradjenta) 5 mg DAILY PO Last administered on 05/12/18at 08:33; Admin Dose 5 MG; Start 05/10/18 at 09:30 Acetaminophen (Tylenol Tab) 650 mg Q6H PRN PO MILD PAIN(1-3)OR ELEVATED TEMP Last administered on 05/11/18at 14:32; Admin Dose 650 MG; Start 05/11/18 at 04:30 Ertapenem 1 gm/ Sodium Chloride 100 ml @ 200 mls/hr Q24H IVPB Last ad ministered on 05/11/18at 13:38; Admin Dose 200 MLS/HR; Start 05/11/18 at 13:15 MIGUELINA RUDOLPH NP May 12, 2018 14:39
[2018-05-12] MEDS ORDERED: LINA5TAB PO (14:42)
[2018-05-12] MEDS ORDERED: INSU200I SQ (14:42)
[2018-05-12] MEDS ORDERED: INSU100I33 SC (14:42)
[2018-05-12] MEDS ORDERED: HYDR-3601 PO (14:42)
--- NOTE | 2018-05-12 14:43 | PDOCDIS ---
Discharge Instructions CONDITION [id number] Patient Condition: [id number] Stable HOME CARE INSTRUCTIONS: [id number] Special Diet: [id number] Carb Controlled ACTIVITY: [id number] Activity Restrictions: [id number] Slowly Increase Activity Rest between Activity FOLLOW UP/APPOINTMENTS Follow-up Plan Please follow up [facility] Dr Crandall for Orthopedics Name, Degree: Chaim Crandall MD Specialty: Orthopedic Surgery Comments: Office Address: [address] [place] [address] Office Office GLENN BOWERS May 12, 2018 14:43
[2018-05-12] MEDS ORDERED: LEVO500T48 PO (14:56)
[2018-05-12] MEDS ORDERED: CLIN300C10 PO (14:56)
[2018-05-12] MEDS ORDERED: CLIN150C18 PO (14:56)
[2018-05-12] MEDS ORDERED: TRAM50TA2 PO (16:34)
--- NOTE | 2018-05-13 09:50 | DS ---
Date/Time of Note Date/Time of Note DATE: 05/13/18 TIME: 09:46 Discharge Summary Admission/Discharge Info Admit Date/Time May 05, 2018 at 18:00 Discharge Date/Time May 12, 2018 at 18:10 Discharge Diagnosis A 47-year-old male who had presented to the emergency room with an acute right thigh pain and swelling, managed for the followin. Intramuscular abscess in right thigh. -s/p drainage by ortho 05/08/18 2. Diabetes mellitus with likely type 2 control. -C peptide wnl 3. Hypertension with improvedcontrol. 4. New onset renal insufficiency: improved 5. Dyslipidemia. -continue home statin 6. Transaminitis -transient, resolved 7. History of right foot toe amputation. 8. Non compliance: s/p counselling . Patient Condition: Stable Consults ID: [email or web address] Ortho: Karley Nephrology: Marysol . Procedures See hospital course . Hospital Course 47-year-old male who had presented to our emergency room with complaints of pain in his right calf and was admitted and managed with a final diagnosis as above. CT of the lower extremity showed an intramuscular abscess in the semimembranosus belly and the patient underwent intraoperative drainage May 09, 2018. He did well postoperatively, wound cultures grew out MRSA and is being discharged to complete antibiotic therapy outpatient by infectious disease recommendations. Of note is that he did develop an acute renal insufficiency that was thought to be secondary to ATN from antibiotic use, nephrology was consulted and followed the patient. At this time his creatinine levels are trending down, has been just cleared for discharge. Patient did have poorly controlled diabetes mellitus, his hemoglobin A1c is estimated to be greater than 13 and was sent out and is still pending, his diabetic regimen was adjusted, patient did admit to being noncompliant with therapy. He did undergo diabetic education. He has been counseled on the need to stay compliant with medication to assist wound healing. He has verbalized understanding. Comorbidities were also aggressively managed as per Med records. Patient at this time has been evaluated and examined in detail and is assessed to be in stable condition and ready for discharge. . Home Meds Active Scripts Tramadol HCl (Tramadol HCl) 50 Mg Tablet, 50 MG PO Q6H PRN for PAIN, #30 TAB Prov:GLENN BOWERS 05/12/18 Levofloxacin* (Levaquin*) 500 Mg Tablet, 500 MG PO DAILY, #7 TAB Prov:GLENN BOWERS. 05/12/18 Clindamycin Hcl* (Clindamycin Hcl*) 300 Mg Capsule, 300 MG PO Q8, #30 CAP take one 150mg and one 300mg tablet daily for a total of 450mg every 8 hours for the next 7 days Prov:GLENN BOWERS. 05/12/18 Clindamycin Hcl* (Clindamycin Hcl*) 150 Mg Capsule, 150 MG PO Q8H, #21 CAP take a 150mg and a 300mg tablet for a total of 450mg every 8hr for 7 more days Prov:GLENN BOWERS. 05/12/18 Hydrocodone Bit-Acetaminophen (Hydrocodone Bit-APAP) 5-325MG Tablet, 1 TAB PO Q3H PRN for MODERATE PAIN LEVEL 4-6, #14 TAB Prov:GLENN BOWERS. 05/12/18 Linagliptin (TRADJENTA) 5 Mg Tablet, 5 MG PO DAILY, #30 TAB 1 Refill Prov:GLENN BOWERS 05/12/18 Insulin Lispro (Humalog Kwikpen) 200 Unit/1 Ml Insuln.pen, 4 UNIT SQ QAM, #4 VIAL 1 Refill Prov:GLENN BOWERS 05/12/18 Insulin Glargine,Hum.rec.anlog (Basaglar Kwikpen U-100) 100 Unit/1 Ml Insuln.pen, 12 UNIT SC QPM, #4 VIAL 1 Refill Prov:GLENN BOWERSHeather 05/12/18 Diazepam* (Valium*) 5 Mg Tablet, 5 MG PO BID PRN for MUSCLE SPASMS, #12 TAB Prov:LILA BROWN PA-C 04/30/18 Reported Medications Cholecalciferol (Vitamin D3) (Vitamin D-3) 2,000 Unit Tablet, 2000 UNIT PO DAILY, TAB 05/05/18 Atorvastatin* (Atorvastatin*) 40 Mg Tablet, 40 MG PO QHS, #30 TAB 05/05/18 Aspirin* (Aspirin* EC) 81 Mg Tablet.dr, 81 MG PO DAILY, TAB 05/05/18 Discontinued Reported Medications Lisinopril* (Lisinopril*) 10 Mg Tablet, 10 MG PO DAILY, #30 TAB 05/05/18 Discontinued Scripts Sulfamethoxazole/Trimethoprim* (Bactrim Ds* Tablet) 1 Each Tablet, 1 TAB PO BID, #14 TAB Prov:LILA BROWN-C 04/30/18 Cephalexin* (Keflex*) 500 Mg Capsule, 500 MG PO QID for 7 Days, CAP Prov:LILA BROWN-C 04/30/18 Ibuprofen* (Motrin*) 600 Mg Tab, 600 MG PO Q6H PRN for PAIN AND OR ELEVATED TEMP, #30 TAB Prov:LILA BROWN-Kirstie 04/30/18 Follow-up Plan Please follow up [facility] Dr Crandall for Orthopedics Name, Degree: Chaim Crandall MD Specialty: Orthopedic Surgery Comments: Office Address: [address] [place] [address] Office Office Primary Care Provider Not On Staff Doctor Time spent on discharge: > 30 minutes Pending Labs Laboratory Tests Test 05/12/18 12:49 Bedside Glucose 100 mg/dL (70-220) GLENN BOWERS May 13, 2018 09:50
--- NOTE | 2018-05-14 18:15 | OPR ---
DATE OF OPERATION: 05/08/2018 PREOPERATIVE DIAGNOSIS: Abscess in the semimembranosus muscle of right thigh. POSTOPERATIVE DIAGNOSIS: Abscess in the semimembranosus muscle of right thigh. PROCEDURE PERFORMED: Incision and drainage of abscess from semimembranosus muscle of the right thigh . ANESTHESIA: General anesthesia. SURGEON: Rachana Diamond MD PROCEDURE AND FINDINGS: Under anesthesia, the patient was placed in supine position upon the operati ng table. By flexing the right hip and externally rotating the right hip, the medial aspect of the r ight thigh was exposed. After confirming the presence of obvious abscess cavity in the semimembranos us, the semimembranosus muscle was approached about an inch long longitudinal incision. By blunt and sharp dissection, the semimembranosus muscle was identified and after confirming the cystic structur es in the middle of the semimembranosus, the area was opened by carrying out the longitudinal incisio n through the semimembranosus. Upon opening the cavity, obvious purulent fluid was identified. Afte r taking specimen, the abscess was drained and then following initial mechanical debridement of the a bscess cavity, the area was irrigated with hydrogen peroxide followed by forceful irrigation using po wer irrigation system with using antibiotic solutions. At the end of the irrigation and debridement, the area was closed with quarter inch Michelet drain in place. Final skin closure was carried out wi th 2-0 nylon. Usual pressure dressings were applied. The patient tolerated the entire procedure very well and was sent to the recovery room in good condit ion. Dictated By: RACHANA DIAMOND MD IK/NTS Conf#: [id number] DID#: [id number]
== END 2018-05-12 18:10 | disposition home or self-care (01) | DRG 853 ==
LOC: E/R 14:49 → TEL 18:00 → 2NE 05-11 16:40
PROVIDERS: ADMIT Internal Medicine; ATTEND Family Medicine
PROC: 4A033R1 Measurement of Arterial Saturation, Peripheral, Percutaneous Approach (ICD-10-PCS; 2018-05-05)
PROC: 30233N1 Transfusion of Nonautologous Red Blood Cells into Peripheral Vein, Percutaneous Approach (ICD-10-PCS; 2018-05-07)
PROC: 0K9Q00Z Drainage of Right Upper Leg Muscle with Drainage Device, Open Approach (ICD-10-PCS; principal; 2018-05-08 14:00)
DX: A41.9 Sepsis, unspecified organism (principal); N17.0 Acute kidney failure with tubular necrosis; L02.415 Cutaneous abscess of right lower limb; L03.115 Cellulitis of right lower limb; E11.319 Type 2 diabetes mellitus with unspecified diabetic retinopathy without macular edema; E11.65 Type 2 diabetes mellitus with hyperglycemia; E11.22 Type 2 diabetes mellitus with diabetic chronic kidney disease; I12.9 Hypertensive chronic kidney disease with stage 1 through stage 4 chronic kidney disease, or unspecified chronic kidney disease; N18.2 Chronic kidney disease, stage 2 (mild); E78.5 Hyperlipidemia, unspecified; D64.9 Anemia, unspecified; B95.62 Methicillin resistant Staphylococcus aureus infection as the cause of diseases classified elsewhere; R74.0 Nonspecific elevation of levels of transaminase and lactic acid dehydrogenase [LDH]; E11.42 Type 2 diabetes mellitus with diabetic polyneuropathy; Z91.19 Patient's noncompliance with other medical treatment and regimen; Z89.411 Acquired absence of right great toe; Z89.421 Acquired absence of other right toe(s); Z79.4 Long term (current) use of insulin; Z79.82 Long term (current) use of aspirin; T36.95XA Adverse effect of unspecified systemic antibiotic, initial encounter; Y92.230 Patient room in hospital as the place of occurrence of the external cause
CPT/HCPCS: 36415; 36430; 71045; 73700; 76775; 80048; 80053; 80076; 80202; 81001; 81003; 82043; 82565; 82728; 82803; 82962; 83540; 83605; 83735; 84100; 84155; 84300; 84484; 84520; 84681; 85025; 85610; 85730; 86078; 86644; 86803; 86850; 86900; 86901; 86920; 87040; 87070; 87075; 87081; 87102; 87340; 93005; 93970; 96372; 96374; 96375; 97110; 97116; 97161; 97530; J0360; J0690; J1100; J1170; J1335; J1644; J1650; J1815; J1885; J2250; J2270; J2274; J2405; J2543; J2765; J3010; J3370; J7030; J7050; P9016; Q9967

== ENCOUNTER 2018-05-18 10:18 | Emergency (ER) | payer OTHER ==
[~2018-05-18] VITALS: Ht 170.2 cm; Wt 90.4 kg
[~2018-05-18 10:18] MED LIST changes: -ATOR20TA38 PO; +ATOR40TA68 PO; -CEPH-443 PO; -CETI10CA PO; +CHOL200056 PO; +CLIN150C18 PO; +CLIN300C10 PO; -GLIM1TAB2 PO; +HYDR-3601 PO; -IBUP-1542 PO; +INSU100I33 SC; +INSU200I SQ; -LACT1CAP28 PO; -LANT3I SC; +LINA5TAB PO; -LISI10TA2 PO; -METF100010 PO; -NOVO3I SC; -SULF1TAB31 PO; +TRAM50TA2 PO; -Vancomycin Iv Per Pharmacy XX
[2018-05-18 10:24] VITALS: BP 160/76; PULSE 77; RESP 18; Ht 170.2 cm; Wt 90.4 kg
--- NOTE | 2018-05-18 10:52 | ERD ---
ER Documentation Chief Complaint Chief Complaint painful watery left eye x3 days, denie itchness or discharge. HPI 47-year-old male, with history of uncontrolled diabetes, discharged 5 days ago from [facility] to cellulitis of the right lower extremity and hyperglycemia. The patient presents today complaining of 3 days with left eye erythema, ocular pain and persistent tearing in the absence of purulent ocular discharge. The patient denies any trauma. He is currently taking clindamycin and levofloxacin in addition to his regular insulin regimen. Good compliance with medications no side effects. In regards of the cellulitis, the patient refers feeling better. ROS All systems reviewed and are negative except as per history of present illness. Medications Home Meds Active Scripts Tramadol HCl (Tramadol HCl) 50 Mg Tablet, 50 MG PO QHS PRN for PAIN for 7 Days, #7 TAB Prov:LEONELA WATKINS MD 05/18/18 Tramadol HCl (Tramadol HCl) 50 Mg Tablet, 50 MG PO Q6H PRN for PAIN, #30 TAB Prov:GLENN BOWERS 05/12/18 Levofloxacin* (Levaquin*) 500 Mg Tablet, 500 MG PO DAILY, #7 TAB Prov:GLENN BOWERS 05/12/18 Clindamycin Hcl* (Clindamycin Hcl*) 300 Mg Capsule, 300 MG PO Q8, #30 CAP take one 150mg and one 300mg tablet daily for a total of 450mg every 8 hours for the next 7 days Prov:GLENN BOWERS 05/12/18 Clindamycin Hcl* (Clindamycin Hcl*) 150 Mg Capsule, 150 MG PO Q8H, #21 CAP take a 150mg and a 300mg tablet for a total of 450mg every 8hr for 7 more days Prov:GLENN BOWERS 05/12/18 Hydrocodone Bit-Acetaminophen (Hydrocodone Bit-APAP) 5-325MG Tablet, 1 TAB PO Q3H PRN for MODERATE PAIN LEVEL 4-6, #14 TAB Prov:GLENN BOWERS 05/12/18 Linagliptin (TRADJENTA) 5 Mg Tablet, 5 MG PO DAILY, #30 TAB 1 Refill Prov:GLENN BOWERS 05/12/18 Insulin Lispro (Humalog Kwikpen) 200 Unit/1 Ml Insuln.pen, 4 UNIT SQ QAM, #4 VIAL 1 Refill Prov:GLENN BOWERS. 05/12/18 Insulin Glargine,Hum.rec.anlog (Basaglar Kwikpen U-100) 100 Unit/1 Ml Insuln.pen, 12 UNIT SC QPM, #4 VIAL 1 Refill Prov:GLENN BOWERS. 05/12/18 Diazepam* (Valium*) 5 Mg Tablet, 5 MG PO BID PRN for MUSCLE SPASMS, #12 TAB Prov:LILA BROWNC 04/30/18 Reported Medications Cholecalciferol (Vitamin D3) (Vitamin D-3) 2,000 Unit Tablet, 2000 UNIT PO DAILY, TAB 05/05/18 Atorvastatin* (Atorvastatin*) 40 Mg Tablet, 40 MG PO QHS, #30 TAB 05/05/18 Aspirin* (Aspirin* EC) 81 Mg Tablet.dr, 81 MG PO DAILY, TAB 05/05/18 Discontinued Reported Medications Lisinopril* (Lisinopril*) 10 Mg Tablet, 10 MG PO DAILY, #30 TAB 05/05/18 Discontinued Scripts Sulfamethoxazole/Trimethoprim* (Bactrim Ds* Tablet) 1 Each Tablet, 1 TAB PO BID, #14 TAB Prov:LILA BROWN PA-C 04/30/18 Cephalexin* (Keflex*) 500 Mg Capsule, 500 MG PO QID for 7 Days, CAP Prov:LILA BROWNC 04/30/18 Ibuprofen* (Motrin*) 600 Mg Tab, 600 MG PO Q6H PRN for PAIN AND OR ELEVATED TEMP, #30 TAB Prov:LLIA BROWN PA-C 04/30/18 Allergies Allergies: Coded Allergies: No Known Allergy (Unverified , 05/05/18) PMhx/Soc History of Surgery: Yes (APPENDECTOMY;4'TH RIGHT TOE AMPUTATION;) Anesthesia Reaction: No Hx Neurological Disorder: No Hx Respiratory Disorders: No Hx Cardiac Disorders: Yes (HIGH CHOLESTEROL;HTN;) Hx Psychiatric Problems: No Hx Miscellaneous Medical Probl: Yes (DM , RT THIGH ABSCESS .) Hx Alcohol Use: Yes Hx Substance Use: No Hx Tobacco Use: No Smoking Status: Never smoker FmHx Family History: diabetes; No coronary disease Physical Exam Vitals Vital Signs Date Temp Pulse Resp B/P (MAP) Pulse Ox O2 O2 Flow FiO2 Time Delivery Rate 05/18/18 98.2 77 18 160/76 97 10:24 (104) Physical Exam Const: No acute distress Head: Atraumatic Eyes: Left eye: Patchy erythematous, tender conjunctival erythema. ENT: Normal External Ears, Nose and Mouth. Neck: Full range of motion. No meningismus. Resp: Clear to auscultation bilaterally Cardio: Regular rate and rhythm, no murmurs Abd: Soft, non tender, non distended. Normal bowel sounds Skin: No petechiae or rashes Back: No midline or flank tenderness Ext: No cyanosis, or edema Neur: Awake and alert Psych: Normal Mood and Affect Results 24 hrs Current Medications Medications Dose Sig/Essence Start Time Status Last (Trade) Ordered Route PRN Stop Time Admin Dose Reason Admin Bromfenac 1 drop ONCE ONCE 05/18/18 DC 05/18/18 Sodium LEFT EYE 11:00 11:22 (Bromday) 05/18/18 11:11 2 drop ONCE ONCE 05/18/18 DC 05/18/18 Dexamethasone LEFT EYE 11:00 11:22 (Maxidex 05/18/18 11:11 0.1% Oph) 1 tab ONCE ONCE 05/18/18 DC 05/18/18 Acetaminophen PO 11:00 11:18 / 05/18/18 11:10 Hydrocodone Bitart ([place] (5/325)) Procedures/MDM Differential diagnosis include but not limited to: infection bacterial/viral/fungal, iritis, scleritis, corneal abrasion, allergies, foreign body, glaucoma. Physical examination and clinical presentation consistent most likely with acute left episcleritis. During the ED course the patient remained stable, no new complaints. Clinical impression discussed with patient who agrees with management. The patient is stable to be treated outpatient and will be discharged home; he will be discharge with the medications given here in the emergency department for ocular NSAIDs and dexamethasone. some side effects of prescribed medications (headache, rash, nausea, vomiting, diarrhea, interactions with other medications) were reviewed. The patient was instructed to follow up with the primary care provider in the next 48h. If symptoms persist, worsen or new symptoms develop, then patient should return to the ED immediately. Disclaimer: Inadvertent spelling and grammatical errors are likely due to EHR/dictation software use and do not reflect on the overall quality of patient care. Also, please note that the electronic time recorded on this note does not necessarily reflect the actual time of the patient encounter. Left episcleritis. Departure Diagnosis: Primary Impression: Episcleritis of left eye Condition: Stable Additional Instructions: Muchas steven por [facility] para lópez servicio. Esperamos que en lópez visita a la anny de emergencia lópez problema medico haya sido solucionado y que se sienta mucho mejor. Para estar seguros que lópez mejoria sigue en proceso, le pedimos el favor de hacer [place] edilia de seguimiento medico con lópez doctor primario en los proximos 2-4 enriquez. Lleve con usted estos documentos y las medicinas recetadas. Si delbert sintomas empeoran, NO SE ESPERE, por favor regrese a anny de emergencia INMEDIATAMENTE. En dionne que usted no tenga un mdico de atencin primaria: Llame al mdico o clnica comunitaria de referencia que aparece abajo sheila las horas de consultorio para hacer [place] edilia para que le vean. CLINICAS: [facility] [phone] [facility] [phone] [facility] [phone] [facility] [phone] [facility] [phone] [id number] [facility] [phone] MD May 18, 2018 10:52
[2018-05-18] MEDS ORDERED: HYDROCODONE/APAP (5/325) TAB PO ONE (11:00)
[2018-05-18] MEDS ORDERED: DEXAMETHASONE 0.1% 5 ML OPH LEFT EYE ONE (11:00)
[2018-05-18] MEDS ORDERED: BROMFENAC SODIUM 1.7 ML OPH DROP LEFT EYE ONE (11:00)
[2018-05-18] MEDS ORDERED: TRAM50TA2 PO (11:52)
== END 2018-05-18 11:59 | disposition home or self-care (01) ==
LOC: FTE 10:18
DX: H15.102 Unspecified episcleritis, left eye (principal); E11.9 Type 2 diabetes mellitus without complications; I10 Essential (primary) hypertension; Z79.4 Long term (current) use of insulin; Z79.82 Long term (current) use of aspirin
CPT/HCPCS: Z7502; Z7610; 99283

== ENCOUNTER 2018-05-21 12:25 | Emergency (ER) | payer SELFPAY ==
[~2018-05-21] VITALS: Wt 89.0 kg
[2018-05-21 12:33] VITALS: BP 154/90; PULSE 80; RESP 18
== END 2018-05-21 16:20 | disposition left against medical advice (07) ==
LOC: FTE 12:25
DX: Z53.21 Procedure and treatment not carried out due to patient leaving prior to being seen by health care provider (principal)

== ENCOUNTER 2019-01-09 19:58 | Emergency (ER) | payer OTHER ==
[~2019-01-09] VITALS: Ht 182.9 cm; Wt 82.6 kg
[~2019-01-09 19:58] MED LIST changes: +LEVO750T25 PO
[2019-01-09 20:47] VITALS: Ht 182.9 cm; Wt 82.6 kg
[2019-01-09 23:41] VITALS: BP 120/82; PULSE 71; RESP 18
== END 2019-01-09 23:41 | disposition home or self-care (01) ==
LOC: E/R 19:58
DX: S91.102A Unspecified open wound of left great toe without damage to nail, initial encounter (principal); I10 Essential (primary) hypertension; E11.9 Type 2 diabetes mellitus without complications; L98.8 Other specified disorders of the skin and subcutaneous tissue; X58.XXXA Exposure to other specified factors, initial encounter; Y92.9 Unspecified place or not applicable; Z79.82 Long term (current) use of aspirin; Z79.4 Long term (current) use of insulin
CPT/HCPCS: 73660; Z7502